=== PATIENT | female | born 1985 | race Caucasian/White ===

== ENCOUNTER → 2016-10-26 | Outpatient (REF) | payer BC ==
[~2016-10-26] MED LIST: /DULO30CA; CETI10TA OR; CYMB60CA3 PO; CYMBALTA; IMIT50TA PO; METF500T PO; PENTASA; PERCOCET PO; SING10TA31; TRUBCAP PO; VENTAER; VIST25CA; VITA500047 PO; XANA0.5T PO; birth control pill OR; doxipen OR; magnesium OR
== END ==
LOC: M LAB REF 16:51
PROVIDERS: ATTEND Internal Medicine Gastroenterology
DX: R10.30 Lower abdominal pain, unspecified (principal); K92.1 Melena

== ENCOUNTER → 2016-10-27 | Outpatient (REF) | payer BC ==
[2016-10-27 20:04] LABS: MICROSCOPIC INDICATED? MAN NO (NO)
== END ==
LOC: M LAB REF 16:50
PROVIDERS: ATTEND Family Medicine
DX: R30.0 Dysuria (principal)

== ENCOUNTER → 2017-11-22 | Outpatient (REF) | payer BC | LOC: M SFHCLERA 17:11 | DX: R39.9 Unspecified symptoms and signs involving the genitourinary system (principal) | CPT/HCPCS: 87086 ==

== ENCOUNTER → 2017-12-24 | Outpatient (REF) | payer BC | LOC: M SFHCLERA 10:03 | DX: R53.81 Other malaise (principal) ==

== ENCOUNTER 2018-07-19 12:03 | Emergency (ER) | payer OTHER, BC ==
[2018-07-19] MEDS: traMADol 50 MG TAB PO (14:47)
[2018-07-19] MEDS: KETOROLAC 60 MG/2 ML VIAL (J1885) IM (14:47)
== END 2018-07-19 16:21 | disposition home or self-care (01) ==
LOC: M ED 12:03
DX: M54.2 Cervicalgia (principal); M54.6 Pain in thoracic spine; R51 Headache; R20.2 Paresthesia of skin; E11.9 Type 2 diabetes mellitus without complications; I47.2 Ventricular tachycardia; J45.909 Unspecified asthma, uncomplicated; F17.210 Nicotine dependence, cigarettes, uncomplicated; Z79.899 Other long term (current) drug therapy; Z91.030 Bee allergy status; Z88.8 Allergy status to other drugs, medicaments and biological substances
CPT/HCPCS: J1885

== ENCOUNTER → 2018-08-30 | Outpatient (REF) | payer OTHER ==
[2018-08-30 11:37] LABS: HEMATOCRIT 43.5 % (36.0-47.0); HEMOGLOBIN 14.9 g/dl (12.0-15.5); MEAN CORPUSCULAR HEMOGLOBIN 31.2 pg (27.0-33.0); MEAN CORPUSCULAR HGB CONC 34.3 g/dl (32.0-36.5); MEAN CORPUSCULAR VOLUME 91.2 fl (80.0-96.0); PLATELET COUNT, AUTOMATED 337 10^3/uL (150-450); RED BLOOD COUNT 4.77 10^6/uL (4.00-5.40); RED CELL DISTRIBUTION WIDTH 12.1 % (11.5-14.5); WHITE BLOOD COUNT 9.2 10^3/uL (4.0-10.0)
[2018-08-30 11:58] LABS: ALBUMIN 4.1 GM/DL (3.2-5.2); ALBUMIN/GLOBULIN RATIO 1.14 (1.00-1.93); ALKALINE PHOSPHATASE 104 U/L (45-117); ALT/SGPT 54 U/L (12-78); ANION GAP 11 MEQ/L (8-16); AST/SGOT 20 U/L (7-37); BILIRUBIN,TOTAL 0.5 MG/DL (0.2-1.0); BLOOD UREA NITROGEN 11 MG/DL (7-18); CARBON DIOXIDE LEVEL 24 MEQ/L (21-32); CHLORIDE LEVEL 95 MEQ/L (98-107); CHOLESTEROL LEVEL 275 MG/DL (<200); CHOLESTEROL RISK RATIO 8.593 (<5); CREATININE FOR GFR 0.92 MG/DL (0.55-1.30); GLOMERULAR FILTRATION RATE > 60.0 (>60); GLUCOSE, FASTING 482 MG/DL (70-100); HDL CHOLESTEROL 32 MG/DL (>40); MAGNESIUM LEVEL 1.8 MG/DL (1.8-2.4); NON-HDL-C 243 MG/DL; POTASSIUM SERUM 4.7 MEQ/L (3.5-5.1); SODIUM LEVEL 130 MEQ/L (136-145); TOTAL 25(OH) VITAMIN D 14.9 NG/ML (30.0-100.0); TOTAL PROTEIN 7.7 GM/DL (6.4-8.2); TRIGLYCERIDES LEVEL 500 MG/DL (<150)
[2018-08-30 12:37] LABS: CREATININE, URINE 16.6 MG/DL; MALB URINE SIEMENS 17.6 MG/L
[2018-08-30 12:39] LABS: ESTIMATED AVERAGE GLUCOSE 289 MG/DL (60-110); HEMOGLOBIN A1c 11.7 %
== END ==
LOC: M SFHCCLAY 08:13
DX: E11.9 Type 2 diabetes mellitus without complications (principal); K21.9 Gastro-esophageal reflux disease without esophagitis; E78.5 Hyperlipidemia, unspecified; F32.9 Major depressive disorder, single episode, unspecified

== ENCOUNTER 2018-09-20 08:59 | Emergency (ER) | payer OTHER ==
[~2018-09-20] VITALS: Ht 157.5 cm; Wt 89.1 kg
[~2018-09-20 08:59] MED LIST changes: +DICL75TA PO; +LEXA1TAB2 PO; +TRAM50TA2 PO
[2018-09-20] MEDS ORDERED: GI COCKTAIL 50ML BTL(HYOSCYAMINE/MAALOX/LIDOCAINE VISCOUS)(1:3:1) PO ONE (09:15)
[2018-09-20] MEDS ORDERED: ONDA4TAB5 (09:18)
[2018-09-20] MEDS ORDERED: META1TAB22 (09:18)
[2018-09-20] MEDS ORDERED: LISI-542 (09:18)
[2018-09-20] MEDS ORDERED: PRAZ1CAP (09:18)
[2018-09-20] MEDS ORDERED: GABA-843 (09:18)
[2018-09-20] MEDS ORDERED: BUSP15TA47 (09:18)
[2018-09-20] MEDS ORDERED: MELO7.5T7 (09:18)
[2018-09-20] MEDS ORDERED: LANTINJ4 (09:18)
[2018-09-20] MEDS ORDERED: ARIP1TAB4 (09:18)
[2018-09-20] MEDS ORDERED: OSEL75CA2 (09:18)
[2018-09-20] MEDS ORDERED: OMEP40CA2 PO (09:18)
[2018-09-20 09:38] LABS: BASO # 0.1 10^3/uL (0.0-0.2); BASO % 0.8 % (0.0-1.0); EOS # 0.2 10^3/uL (0.0-0.50); EOS % 1.7 % (0.0-3.0); HEMATOCRIT 43.3 % (36.0-47.0); LYMPH # 2.7 10^3/uL (1.5-4.5); LYMPH % 30.6 % (24.0-44.0); MEAN CORPUSCULAR HEMOGLOBIN 31.6 pg (27.0-33.0); MEAN CORPUSCULAR HGB CONC 34.6 g/dl (32.0-36.5); MEAN CORPUSCULAR VOLUME 91.2 fl (80.0-96.0); MONO # 0.6 10^3/uL (0.0-0.8); MONO % 6.5 % (0.0-5.0); NEUTROPHILS # 5.2 10^3/uL (1.8-7.7); NEUTROPHILS % 60.1 % (36.0-66.0); PLATELET COUNT, AUTOMATED 287 10^3/uL (150-450); RED BLOOD COUNT 4.75 10^6/uL (4.00-5.40); WHITE BLOOD COUNT 8.7 10^3/uL (4.0-10.0)
[2018-09-20 10:13] LABS: ALBUMIN 3.7 GM/DL (3.2-5.2); ALT/SGPT 48 U/L (12-78); BILIRUBIN,DIRECT 0.1 MG/DL (0.0-0.2); BILIRUBIN,TOTAL 0.5 MG/DL (0.2-1.0); BLOOD UREA NITROGEN 14 MG/DL (7-18); CALCIUM LEVEL 9.1 MG/DL (8.5-10.1); CARBON DIOXIDE LEVEL 23 MEQ/L (21-32); CHLORIDE LEVEL 101 MEQ/L (98-107); CK-MB VALUE MASS < 1.0 NG/ML (<3.6); CPK CREATINE PHOSPHOKINASE 45 U/L (26-192); CREATININE FOR GFR 0.65 MG/DL (0.55-1.30); GLOMERULAR FILTRATION RATE > 60.0 (>60); GLUCOSE, FASTING 289 MG/DL (70-100); LIPASE 116 U/L (73-393); MB/CK RELATIVE INDEX 2.22 (< OR =4); POTASSIUM SERUM 4.4 MEQ/L (3.5-5.1); SODIUM LEVEL 135 MEQ/L (136-145); TOTAL PROTEIN 7.2 GM/DL (6.4-8.2); TROPONIN I < 0.02 NG/ML (< 0.10)
[2018-09-20] MEDS ORDERED: SUCRALFATE SUSP 1GM/10ML UD PO ONE (10:15)
[2018-09-20] MEDS ORDERED: KETOROLAC 30 MG/ML VIAL (J1885) IV ONE (10:45)
[2018-09-20] MEDS ORDERED: NS 1,000 ML IV ONE (11:00)
[2018-09-20 15:45] LABS: CK-MB VALUE MASS < 1.0 NG/ML (<3.6); CPK CREATINE PHOSPHOKINASE 34 U/L (26-192); MB/CK RELATIVE INDEX 2.94 (< OR =4); TROPONIN I < 0.02 NG/ML (< 0.10)
[2018-09-20] MEDS ORDERED: SUCR1SS PO (15:53)
[2018-09-20 16:03] VITALS: BP 117/59
--- NOTE | 2018-09-21 16:42 | ECGEPIP ---
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
--- NOTE | 2018-09-21 16:47 | ECGEPIP ---
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
== END 2018-09-20 16:05 | disposition home or self-care (01) ==
LOC: M ED 08:59
DX: R07.9 Chest pain, unspecified (principal); E11.9 Type 2 diabetes mellitus without complications; J45.909 Unspecified asthma, uncomplicated; Z79.4 Long term (current) use of insulin; F17.200 Nicotine dependence, unspecified, uncomplicated

== ENCOUNTER → 2019-01-17 | Outpatient (REF) | payer MEDICAID ==
[~2019-01-17] MED LIST changes: -/DULO30CA; +ARIP1TAB4; +BUSP15TA47; +CYMB1CAP5; +GABA-843; +LANTINJ4; +LISI-542; +MELO7.5T7; +META1TAB22; +OMEP40CA2 PO; +ONDA4TAB5; +OSEL75CA2; +OXYC1TAB23 PO; -PERCOCET PO; +PRAZ1CAP; +SUCR1SS PO
[2019-01-17 11:54] LABS: ALBUMIN 3.8 GM/DL (3.2-5.2); BILIRUBIN,DIRECT 0.1 MG/DL (0.0-0.2); BILIRUBIN,TOTAL 0.7 MG/DL (0.2-1.0); CHOLESTEROL RISK RATIO 7.818 (<5); TOTAL 25(OH) VITAMIN D 28.1 NG/ML (30.0-100.0); TOTAL PROTEIN 7.4 GM/DL (6.4-8.2)
[2019-01-17 12:18] LABS: MAU/CREAT RATIO 69.4 MCG/MG (0.0-30.0)
[2019-01-17 12:35] LABS: HEMOGLOBIN A1c 11.5 %
== END ==
LOC: M SFHCCLAY 07:27
PROVIDERS: ATTEND Nurse Practitioner Family
DX: E11.9 Type 2 diabetes mellitus without complications (principal); E78.5 Hyperlipidemia, unspecified; E55.9 Vitamin D deficiency, unspecified

== ENCOUNTER → 2019-02-08 | Outpatient (REF) | payer MEDICAID, OTHER | LOC: M SFHCCLAY 16:09 | PROVIDERS: ATTEND Family Medicine | DX: K52.9 Noninfective gastroenteritis and colitis, unspecified (principal); E11.9 Type 2 diabetes mellitus without complications; Z53.9 Procedure and treatment not carried out, unspecified reason ==

== ENCOUNTER → 2019-02-09 | Outpatient (REF) | payer OTHER ==
[2019-02-09 16:52] LABS: REDUCING SUBSTANCE NEGATIVE (NEGATIVE)
[2019-02-09 16:53] LABS: HEMATOCRIT 36.3 % (36.0-47.0); HEMOGLOBIN 12.3 g/dl (12.0-15.5); MEAN CORPUSCULAR HEMOGLOBIN 31.6 pg (27.0-33.0); MEAN CORPUSCULAR HGB CONC 33.9 g/dl (32.0-36.5); MEAN CORPUSCULAR VOLUME 93.3 fl (80.0-96.0); PLATELET COUNT, AUTOMATED 288 10^3/uL (150-450); RED BLOOD COUNT 3.89 10^6/uL (4.00-5.40)
[2019-02-09 17:09] LABS: BLOOD UREA NITROGEN 15 MG/DL (7-18); CALCIUM LEVEL 9.2 MG/DL (8.5-10.1); CARBON DIOXIDE LEVEL 24 MEQ/L (21-32); CHLORIDE LEVEL 102 MEQ/L (98-107); CREATININE FOR GFR 0.77 MG/DL (0.55-1.30); GLOMERULAR FILTRATION RATE > 60.0 (>60); GLUCOSE, FASTING 303 MG/DL (70-100); POTASSIUM SERUM 4.1 MEQ/L (3.5-5.1); SODIUM LEVEL 136 MEQ/L (136-145)
[2019-02-14 14:13] LABS: C-PEPTIDE 3.3 ng/mL (1.1-4.4); ISLET CELL ANTIBODIES Negative (Neg:<1:1); TISSUE TRANSGLUTAMINASE IgA <2 U/mL (0-3); TISSUE TRANSGLUTAMINASE IgG <2 U/mL (0-5); UNITSIGA FOR GLIADIN IGA 4 units (0-19); UNITSIGG FOR GLIADIN IGG 2 units (0-19)
== END ==
LOC: M SFHCCLAY 13:30
PROVIDERS: ATTEND Family Medicine
DX: K52.9 Noninfective gastroenteritis and colitis, unspecified (principal); E11.9 Type 2 diabetes mellitus without complications

== ENCOUNTER → 2019-09-05 | Outpatient (REF) | payer OTHER ==
[~2019-09-05] MED LIST changes: -OMEP40CA2 PO; +OMEP40CA97 PO
[2019-09-05 12:21] LABS: ALBUMIN 3.4 GM/DL (3.2-5.2); ALT/SGPT 31 U/L (12-78); BILIRUBIN,DIRECT < 0.1 MG/DL (0.0-0.2); BILIRUBIN,TOTAL 0.6 MG/DL (0.2-1.0); CHOLESTEROL LEVEL 220 MG/DL (<200); CHOLESTEROL RISK RATIO 9.565 (<5); HDL CHOLESTEROL 23 MG/DL (>40); NON-HDL-C 197 MG/DL; TOTAL PROTEIN 6.7 GM/DL (6.4-8.2); TRIGLYCERIDES LEVEL 979 MG/DL (<150)
[2019-09-05 12:41] LABS: HEMOGLOBIN A1c 10.9 %
[2019-09-05 13:46] LABS: TOTAL 25(OH) VITAMIN D 28.2 NG/ML (30.0-100.0)
== END ==
LOC: M SFHCCLAY 07:04
PROVIDERS: ATTEND Nurse Practitioner Family
DX: E11.65 Type 2 diabetes mellitus with hyperglycemia (principal); E78.5 Hyperlipidemia, unspecified; E55.9 Vitamin D deficiency, unspecified

== ENCOUNTER → 2019-11-07 | Outpatient (REF) | payer OTHER ==
[~2019-11-07] MED LIST changes: +ONDA-83; -ONDA4TAB5
[2019-11-07 11:32] LABS: APPEARANCE, URINE HAZY (CLEAR); BACTERIA, URINE AUTO NEGATIVE (NEGATIVE); BILIRUBIN, URINE AUTO NEGATIVE (NEGATIVE); BLOOD, URINE BLOOD NEGATIVE (NEGATIVE); COLOR, URINE YELLOW (YELLOW); GLUCOSE, URINE (UA) AUTO 3+ mg/dL (NEGATIVE); KETONE, URINE AUTO NEGATIVE (NEGATIVE); LEUKOCYTE ESTERASE, URINE AUTO NEGATIVE (NEGATIVE); NITRITE, URINE AUTO NEGATIVE (NEGATIVE); PROTEIN, URINE AUTO NEGATIVE (NEGATIVE); RBC, URINE AUTO 0 /HPF (0-3); SPECIFIC GRAVITY URINE AUTO 1.041 (1.002-1.035); SQUAMOUS EPITHELIAL CELL UR AU 1 /HPF (0-6); UROBILINOGEN, URINE AUTO 0.2 mg/dL (0.0-2.0); WBC, URINE AUTO 1 /HPF (0-3)
[2019-11-07 11:43] LABS: BASO # 0.1 10^3/uL (0.0-0.2); EOS # 0.2 10^3/uL (0.0-0.5); EOS % 2.5 % (0.0-3.0); HEMATOCRIT 40.9 % (36.0-47.0); HEMOGLOBIN 13.7 g/dl (12.0-15.5); LYMPH # 2.5 10^3/uL (1.5-5.0); LYMPH % 30.6 % (24.0-44.0); MEAN CORPUSCULAR HEMOGLOBIN 31.8 pg (27.0-33.0); MEAN CORPUSCULAR HGB CONC 33.5 g/dl (32.0-36.5); MEAN CORPUSCULAR VOLUME 94.9 fl (80.0-96.0); MONO # 0.5 10^3/uL (0.0-0.8); MONO % 6.8 % (0.0-5.0); NEUTROPHILS # 4.7 10^3/uL (1.5-8.5); NEUTROPHILS % 58.6 % (36.0-66.0); PLATELET COUNT, AUTOMATED 318 10^3/uL (150-450); RED BLOOD COUNT 4.31 10^6/uL (4.00-5.40)
[2019-11-07 11:50] LABS: ALBUMIN 3.9 GM/DL (3.2-5.2); ALT/SGPT 55 U/L (12-78); BILIRUBIN,TOTAL 0.7 MG/DL (0.2-1.0); BLOOD UREA NITROGEN 14 MG/DL (7-18); CALCIUM LEVEL 9.3 MG/DL (8.5-10.1); CARBON DIOXIDE LEVEL 26 MEQ/L (21-32); CHLORIDE LEVEL 109 MEQ/L (98-107); CREATININE FOR GFR 0.81 MG/DL (0.55-1.30); GLOMERULAR FILTRATION RATE > 60.0 (>60); GLUCOSE, FASTING 214 MG/DL (70-100); POTASSIUM SERUM 4.2 MEQ/L (3.5-5.1); SODIUM LEVEL 140 MEQ/L (136-145)
[2019-11-07 12:06] LABS: HEMOGLOBIN A1c 10.4 %
== END ==
LOC: M SFHCCLAY 07:06
PROVIDERS: ATTEND Family Medicine
DX: K50.90 Crohn's disease, unspecified, without complications (principal); E11.8 Type 2 diabetes mellitus with unspecified complications

== ENCOUNTER → 2019-11-20 | Outpatient (REF) | payer OTHER | LOC: M LABDRAWC 17:14 | PROVIDERS: ATTEND Internal Medicine Gastroenterology | DX: K21.9 Gastro-esophageal reflux disease without esophagitis (principal); K50.90 Crohn's disease, unspecified, without complications; R10.9 Unspecified abdominal pain ==

== ENCOUNTER → 2019-12-05 | Outpatient (REF) | payer OTHER | LOC: M SFHCCLAY 16:13 | PROVIDERS: ATTEND Nurse Practitioner Family | DX: J02.9 Acute pharyngitis, unspecified (principal) ==

== ENCOUNTER → 2020-01-15 | Outpatient (REF) | payer OTHER ==
[2020-01-15 17:48] LABS: CHOLESTEROL LEVEL 314 MG/DL (<200); CHOLESTEROL RISK RATIO 10.827 (<5); HDL CHOLESTEROL 29 MG/DL (>40); NON-HDL-C 285 MG/DL; TOTAL 25(OH) VITAMIN D 18.8 NG/ML (30.0-100.0); TRIGLYCERIDES LEVEL 1106 MG/DL (<150)
[2020-01-15 18:03] LABS: HEMOGLOBIN A1c 9.8 %
[2020-01-15 18:08] LABS: CREATININE, URINE 83.7 MG/DL; MALB URINE SIEMENS 5.6 MG/L; MAU/CREAT RATIO 6.6 MCG/MG (0.0-30.0)
== END ==
LOC: M SFHCCLAY 11:55
PROVIDERS: ATTEND Nurse Practitioner Family
DX: E11.8 Type 2 diabetes mellitus with unspecified complications (principal); E78.5 Hyperlipidemia, unspecified; E55.9 Vitamin D deficiency, unspecified

== ENCOUNTER 2020-02-05 20:44 | Emergency (ER) | payer OTHER ==
[~2020-02-05] VITALS: Ht 157.5 cm; Wt 86.3 kg
[2020-02-05] MEDS ORDERED: KETOROLAC 30 MG/ML 1ML VIAL IV ONE (21:15)
[2020-02-05] MEDS ORDERED: TRAZ1TAB14 PO (21:42)
[2020-02-05] MEDS ORDERED: ALBU8.5H INH (21:42)
[2020-02-05] MEDS ORDERED: HYDR-3713 PO (21:42)
[2020-02-05] MEDS ORDERED: TOPA1TAB PO (21:42)
[2020-02-05] MEDS ORDERED: LITH300C PO (21:42)
[2020-02-05] MEDS ORDERED: PRED10TA2 PO (21:42)
[2020-02-05] MEDS ORDERED: BASA100I SQ (21:42)
[2020-02-05 21:59] LABS: BASO # 0.1 10^3/uL (0.0-0.2); BASO % 0.7 % (0.0-1.0); EOS % 0.3 % (0.0-3.0); HEMOGLOBIN 14.5 g/dl (12.0-15.5); LYMPH # 3.4 10^3/uL (1.5-5.0); LYMPH % 25.2 % (24.0-44.0); MEAN CORPUSCULAR HEMOGLOBIN 31.1 pg (27.0-33.0); MEAN CORPUSCULAR HGB CONC 33.7 g/dl (32.0-36.5); MEAN CORPUSCULAR VOLUME 92.3 fl (80.0-96.0); MONO # 0.8 10^3/uL (0.0-0.8); MONO % 5.6 % (0.0-5.0); NEUTROPHILS # 9.1 10^3/uL (1.5-8.5); NEUTROPHILS % 67.6 % (36.0-66.0); PLATELET COUNT, AUTOMATED 300 10^3/uL (150-450); RED BLOOD COUNT 4.66 10^6/uL (4.00-5.40); WHITE BLOOD COUNT 13.5 10^3/uL (4.0-10.0)
[2020-02-05 22:10] LABS: BLOOD UREA NITROGEN 13 MG/DL (7-18); C REACTIVE PROTEIN QUANTITATIV 1.25 MG/DL (0.00-0.30); CALCIUM LEVEL 8.6 MG/DL (8.5-10.1); CARBON DIOXIDE LEVEL 25 MEQ/L (21-32); CHLORIDE LEVEL 103 MEQ/L (98-107); CREATININE FOR GFR 0.74 MG/DL (0.55-1.30); GLOMERULAR FILTRATION RATE > 60.0 (>60); GLUCOSE, FASTING 302 MG/DL (70-100); POTASSIUM SERUM 4.1 MEQ/L (3.5-5.1); SODIUM LEVEL 135 MEQ/L (136-145)
[2020-02-05 22:35] LABS: ERYTHROCYTE SEDIMENTATION RATE 14 mm/hr (0-20)
[2020-02-05 23:09] VITALS: BP 127/78
[2020-02-08 00:08] LABS: Lyme Disease IgG/IgM Antibodie <0.91 ISR (0.00-0.90); Lyme Disease IgM Ab Quantitati <0.80 index (0.00-0.79)
== END 2020-02-05 23:21 | disposition home or self-care (01) ==
LOC: M ED 20:44
DX: M25.50 Pain in unspecified joint (principal); E11.9 Type 2 diabetes mellitus without complications; I47.1 Supraventricular tachycardia; M54.81 Occipital neuralgia; K50.919 Crohn's disease, unspecified, with unspecified complications; F17.200 Nicotine dependence, unspecified, uncomplicated; Z98.890 Other specified postprocedural states; Z79.84 Long term (current) use of oral hypoglycemic drugs; Z79.899 Other long term (current) drug therapy; Z88.2 Allergy status to sulfonamides; Z88.0 Allergy status to penicillin; Z91.030 Bee allergy status
CPT/HCPCS: 36415; 80048; 81001; 84443; 85025; 85652; 86140; 86617; 96374; 99284; J1885

== ENCOUNTER → 2020-02-08 | Outpatient (REF) | payer OTHER ==
[~2020-02-08] MED LIST changes: +ALBU8.5H INH; +BASA100I SQ; +HYDR-3713 PO; +LITH300C PO; +PRED10TA2 PO; +TOPA1TAB PO; +TRAZ1TAB14 PO
[2020-02-08 12:35] LABS: ALBUMIN 4.1 GM/DL (3.2-5.2); ALT/SGPT 35 U/L (12-78); BILIRUBIN,DIRECT 0.2 MG/DL (0.0-0.2); CHOLESTEROL LEVEL 264 MG/DL (<200); HDL CHOLESTEROL 33 MG/DL (>40); LDL CHOLESTEROL 158 MG/DL (<100); NON-HDL-C 231 MG/DL; RHEUMATOID FACTOR QUANT < 10.0 IU/ML (<15.0); TOTAL PROTEIN 7.2 GM/DL (6.4-8.2); TRIGLYCERIDES LEVEL 363 MG/DL (<150)
[2020-02-08 12:57] LABS: HEMOGLOBIN A1c 9.8 %
[2020-02-10 00:07] LABS: ANA (HEP2) Negative (.)
== END ==
LOC: M SFHCCLAY 09:17
PROVIDERS: ATTEND Nurse Practitioner Family
DX: E11.8 Type 2 diabetes mellitus with unspecified complications (principal); E78.5 Hyperlipidemia, unspecified; M25.50 Pain in unspecified joint

== ENCOUNTER → 2020-04-10 | Outpatient (CLI) | payer OTHER ==
[2020-04-10 12:09] LABS: BASO # 0.1 10^3/uL (0.0-0.2); BASO % 0.5 % (0.0-1.0); EOS # 0.1 10^3/uL (0.0-0.5); EOS % 0.5 % (0.0-3.0); HEMATOCRIT 43.8 % (36.0-47.0); HEMOGLOBIN 14.5 g/dl (12.0-15.5); LYMPH # 1.7 10^3/uL (1.5-5.0); LYMPH % 13.8 % (24.0-44.0); MEAN CORPUSCULAR HEMOGLOBIN 31.5 pg (27.0-33.0); MEAN CORPUSCULAR HGB CONC 33.1 g/dl (32.0-36.5); MEAN CORPUSCULAR VOLUME 95.2 fl (80.0-96.0); MONO % 8.3 % (0.0-5.0); NEUTROPHILS # 9.3 10^3/uL (1.5-8.5); NEUTROPHILS % 76.3 % (36.0-66.0); PLATELET COUNT, AUTOMATED 314 10^3/uL (150-450); WHITE BLOOD COUNT 12.2 10^3/uL (4.0-10.0)
[2020-04-10 12:41] LABS: ALBUMIN 3.8 GM/DL (3.2-5.2); ALT/SGPT 27 U/L (12-78); BILIRUBIN,TOTAL 0.9 MG/DL (0.2-1.0); BLOOD UREA NITROGEN 10 MG/DL (7-18); CALCIUM LEVEL 9.5 MG/DL (8.5-10.1); CARBON DIOXIDE LEVEL 18 MEQ/L (21-32); CHLORIDE LEVEL 101 MEQ/L (98-107); CREATININE FOR GFR 0.86 MG/DL (0.55-1.30); GLOMERULAR FILTRATION RATE > 60.0 (>60); GLUCOSE, FASTING 249 MG/DL (70-100); LIPASE 127 U/L (73-393); POTASSIUM SERUM 4.6 MEQ/L (3.5-5.1); SODIUM LEVEL 134 MEQ/L (136-145); TOTAL PROTEIN 7.5 GM/DL (6.4-8.2)
== END ==
LOC: M WUC 08:53
PROVIDERS: ATTEND Physician Assistant
DX: R10.9 Unspecified abdominal pain (principal)

== ENCOUNTER → 2020-05-07 | Outpatient (REF) | payer OTHER ==
[2020-06-25 10:49] LABS: HEMATOCRIT 44.5 % (36.0-47.0); HEMOGLOBIN 14.5 g/dl (12.0-15.5); MEAN CORPUSCULAR HEMOGLOBIN 31.9 pg (27.0-33.0); MEAN CORPUSCULAR HGB CONC 32.6 g/dl (32.0-36.5); MEAN CORPUSCULAR VOLUME 97.8 fl (80.0-96.0); PLATELET COUNT, AUTOMATED 337 10^3/uL (150-450); RED BLOOD COUNT 4.55 10^6/uL (4.00-5.40); WHITE BLOOD COUNT 10.1 10^3/uL (4.0-10.0)
[2020-07-28 08:38] LABS: ALBUMIN 3.9 GM/DL (3.2-5.2); ALT/SGPT 27 U/L (12-78); BILIRUBIN,TOTAL 0.5 MG/DL (0.2-1.0); BLOOD UREA NITROGEN 13 MG/DL (7-18); CALCIUM LEVEL 9.4 MG/DL (8.5-10.1); CARBON DIOXIDE LEVEL 27 MEQ/L (21-32); CHLORIDE LEVEL 106 MEQ/L (98-107); CHOLESTEROL LEVEL 222 MG/DL (<200); CHOLESTEROL RISK RATIO 5.162 (<5); CREATININE FOR GFR 0.75 MG/DL (0.55-1.30); GLOMERULAR FILTRATION RATE > 60.0 (>60); GLUCOSE, FASTING 108 MG/DL (70-100); HDL CHOLESTEROL 43 MG/DL (>40); HEMOGLOBIN A1c 8.7 %; LDL CHOLESTEROL 159 MG/DL (<100); MALB URINE SIEMENS < 5.0 MG/L; NON-HDL-C 179 MG/DL; POTASSIUM SERUM 4.2 MEQ/L (3.5-5.1); SODIUM LEVEL 137 MEQ/L (136-145); TOTAL 25(OH) VITAMIN D 48.2 NG/ML (30.0-100.0); TOTAL PROTEIN 6.8 GM/DL (6.4-8.2); TRIGLYCERIDES LEVEL 101 MG/DL (<150)
== END ==
LOC: M SFHCCLAY 12:49
PROVIDERS: ATTEND Nurse Practitioner Family
DX: E11.9 Type 2 diabetes mellitus without complications (principal); E55.9 Vitamin D deficiency, unspecified

== ENCOUNTER → 2021-02-07 | Outpatient (CLI) | payer BC, OTHER ==
[~2021-02-07] MED LIST changes: +GABA-282; -GABA-843; -LISI-542; +LISI-898
[2021-02-07 18:11] LABS: BASO # 0.1 10^3/uL (0.0-0.2); EOS # 0.2 10^3/uL (0.0-0.5); EOS % 1.9 % (0.0-3.0); HEMATOCRIT 41.6 % (36.0-47.0); HEMOGLOBIN 14.1 g/dl (12.0-15.5); LYMPH # 3.4 10^3/uL (1.5-5.0); LYMPH % 34.2 % (24.0-44.0); MEAN CORPUSCULAR HEMOGLOBIN 31.8 pg (27.0-33.0); MEAN CORPUSCULAR HGB CONC 33.9 g/dl (32.0-36.5); MEAN CORPUSCULAR VOLUME 93.7 fl (80.0-96.0); MONO # 0.6 10^3/uL (0.0-0.8); MONO % 6.2 % (2.0-8.0); NEUTROPHILS # 5.6 10^3/uL (1.5-8.5); NEUTROPHILS % 56.1 % (36.0-66.0); PLATELET COUNT, AUTOMATED 332 10^3/uL (150-450); RED BLOOD COUNT 4.44 10^6/uL (4.00-5.40)
[2021-02-07 18:44] LABS: ALBUMIN 3.7 GM/DL (3.2-5.2); ALT/SGPT 42 U/L (12-78); BILIRUBIN,TOTAL 0.4 MG/DL (0.2-1.0); BLOOD UREA NITROGEN 16 MG/DL (7-18); CALCIUM LEVEL 8.5 MG/DL (8.5-10.1); CARBON DIOXIDE LEVEL 25 MEQ/L (21-32); CHLORIDE LEVEL 103 MEQ/L (98-107); CREATININE FOR GFR 0.65 MG/DL (0.55-1.30); FREE T4 0.74 NG/DL (0.76-1.46); GLOMERULAR FILTRATION RATE > 60.0 (>60); GLUCOSE, FASTING 236 MG/DL (70-100); POTASSIUM SERUM 3.8 MEQ/L (3.5-5.1); SODIUM LEVEL 136 MEQ/L (136-145)
== END ==
LOC: M LAB 17:14
PROVIDERS: ATTEND Physician Assistant
DX: R53.83 Other fatigue (principal)

== ENCOUNTER → 2021-02-19 | Outpatient (REF) | payer BC, MEDICAID ==
[~2021-02-19] MED LIST changes: +OMEP40CA4 PO; -OMEP40CA97 PO
[2021-02-19 11:45] LABS: HEMATOCRIT 44.6 % (36.0-47.0); HEMOGLOBIN 14.6 g/dl (12.0-15.5); MEAN CORPUSCULAR HEMOGLOBIN 31.3 pg (27.0-33.0); MEAN CORPUSCULAR HGB CONC 32.7 g/dl (32.0-36.5); MEAN CORPUSCULAR VOLUME 95.5 fl (80.0-96.0); PLATELET COUNT, AUTOMATED 293 10^3/uL (150-450); RED BLOOD COUNT 4.67 10^6/uL (4.00-5.40); WHITE BLOOD COUNT 9.5 10^3/uL (4.0-10.0)
[2021-02-19 12:37] LABS: MALB URINE SIEMENS < 5.0 MG/L; MAU/CREAT RATIO 11.9 MCG/MG (0.0-30.0)
[2021-02-19 13:11] LABS: HEMOGLOBIN A1c 9.4 %
[2021-02-19 13:26] LABS: CHOLESTEROL LEVEL 312 MG/DL (<200); HDL CHOLESTEROL 24 MG/DL (>40); NON-HDL-C 288 MG/DL; TOTAL 25(OH) VITAMIN D 15.2 NG/ML (30.0-100.0); TRIGLYCERIDES LEVEL 1614 MG/DL (<150)
== END ==
LOC: M SFHCCLAY 07:02
PROVIDERS: ATTEND Nurse Practitioner Family
DX: E11.8 Type 2 diabetes mellitus with unspecified complications (principal); E78.5 Hyperlipidemia, unspecified; E03.9 Hypothyroidism, unspecified; E55.9 Vitamin D deficiency, unspecified

== ENCOUNTER → 2021-08-05 | Outpatient (REF) | payer BC ==
[~2021-08-05] MED LIST changes: +CYMB60CA4 PO; +NITR100C2
== END ==
LOC: M SFHCCLAY 11:25
PROVIDERS: ATTEND Physician Assistant
DX: R30.0 Dysuria (principal); N89.8 Other specified noninflammatory disorders of vagina

== ENCOUNTER 2021-08-06 07:09 | Emergency (ER) | payer BC ==
[~2021-08-06] VITALS: Ht 152.4 cm; Wt 78.2 kg
[~2021-08-06 07:09] MED LIST changes: -CYMB60CA4 PO; -NITR100C2
[2021-08-06] MEDS ORDERED: CYMB60CA4 PO (07:14)
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
--- OUTSIDE RECORDS SUMMARY | 2021-08-06 07:14 | CCD | Continuity of Care Document ---
Author Author Alexandria BRANCH Organization Unknown Address [address] [place] [address] [place] [address] Phone [phone] Care Team Providers Care Water Tester Name Role Phone Ivone Resendiz AUTM [phone] John Co Publi AUTM [phone] Problems Description No Information Available Social History Type Date Description Comments Sex Unknown ETOH Use Denies alcohol use Tobacco Use Start: Unknown Light tobacco smoker (10 or fewe r cigarettes/day) Smoking Status Reviewed: 07/27/21 Light tobacco smoker (10 or fewer cigarettes/day) Allergies and adverse reactions Active Allergies Criticality Reaction | Severity Comments Date Penicillins Unable to assess criticality 04/10/2020 Macrolides And Ketolides Unable to assess criticality 04/10/2020 Shellfish-Derived Products Unable to assess criticality 06/25/2020 Prednisone Unable to assess criticality 07/27/2021 Medications Active Medications SIG Qnty Indications Ordering Provide r Date Zyrtec Allergy 10mg Capsules 1 tab by mouth every day as needed for allergy symptoms U nknown [place] Carbonate 300mg Capsules 150mg once a day added Unknown Prazosin HCL 2mg Capsules Unknown Trazodone HCL 150mg Tablets Unknown Steglatro 15mg Tablets Unknown Omeprazole 40mg Capsules DR 1 by mouth every day Unknown Levothyroxine Sodium 25mcg Tablets Unknown Basaglar Kwikpen 100 Unit/ML Solution Pen-Inject 50 units once a day Unknown 00 Abilify 5mg Tablets Unknown Duloxetine HCL 60mg Caps DR Part Unknown Topiramate 50mg Tablets Unknown Baclofen 10mg Tablets Unknown Immunizations Description No Information Available Vital Signs Date Vital Result Comment 07/27/2021 12:02pm BP Systolic 123 mmHg BP Diastolic 86 mmHg Heart Rate 104 /min Respiratory Rate 16 /min O2 % BldC Oximetry 98 % Body Temperature 97.7 F Weight 180.00 lb Height 60 inches 5'0" BMI (Body Mass Index) 35.1 kg/m2 Pain Level 4 02/06/2021 6:44pm BP Systolic 122 mmHg BP Diastolic 85 mmHg Heart Rate 99 /min Respiratory Rate 16 /min O2 % BldC Oximetry 97 % Body Temperature 98.4 F Weight 180.00 lb Height 62 inches 5'2" BMI (Body Mass Index) 32.9 kg/m2 Pain Level 4 Results Test Acquired Date Facility Test Result H/L Range Note CBC With Differential 02/07/2021 [place] [id number] [phone] White Blood Count 10.0 10 Normal 4.0-10.0 Red Blood Count 4.44 10 Normal 4.00-5.40 Hemoglobin 14.1 g/dL Normal 12.0-15.5 Hematocrit 41.6 % Normal 36.0-47.0 Mean Corpuscular Volume 93.7 fl Normal 80.0-96.0 Mean Corpuscular Hemoglobin 31.8 pg Normal 27.0-33.0 Mean Corpuscular HGB Conc 33.9 g/dL Normal 32.0-36.5 Red Cell Distribution Width 12.2 % Normal 11.5-14.5 Platelet Count, Automated 332 10 Normal 150-450 Neutrophils % 56.1 % Normal 36.0-66.0 Lymph % 34.2 % Normal 24.0-44.0 [place]undy % 6.2 % Normal 2.0-8.0 Eos % 1.9 % Normal 0.0-3.0 Baso % 1.0 % Normal 0.0-1.0 Immature Granulocyte % 0.6 % Normal 0-3.0 Nucleated Red Blood Cell % 0.0 % Normal 0-0 Neutrophils # 5.6 10 Normal 1.5-8.5 Lymph # 3.4 10 Normal 1.5-5.0 [place] # 0.6 10 Normal 0.0-0.8 Eos # 0.2 10 Normal 0.0-0.5 Baso # 0.1 10 Normal 0.0-0.2 Comprehensive Metabolic Profil 02/07/2021 [facility] [address] [place] [address] [phone] Glucose, Fasting 236 mg/dL High 70-100 Blood Urea Nitrogen 16 mg/dL Normal 7-18 Creatinine For GFR 0.65 mg/dL Normal 0.55-1.30 Glomerular Filtration Rate > 60.0 Normal >60 1 Sodium Level 136 mEq/L Normal 136-145 Potassium Serum 3.8 mEq/L Normal 3.5-5.1 Chloride Level 103 mEq/L Normal 98-107 Carbon Dioxide Level 25 mEq/L Normal 21-32 Anion Gap 8 mEq/L Normal 8-16 Calcium Level 8.5 mg/dL Normal 8.5-10.1 Ast/Sgot 13 U/L Normal 7-37 Alt/SGPT 42 U/L Normal 12-78 Alkaline Phosphatase 110 U/L Normal 45-117 Bilirubin,Total 0.4 mg/dL Normal 0.2-1.0 Total Protein 7.0 GM/DL Normal 6.4-8.2 Albumin 3.7 GM/DL Normal 3.2-5.2 Albumin/Globulin Ratio 1.1 Low 1.2-2.2 FT4&TSH Panel 02/07/2021 [facility] n[facility] [address] [place] [address] [phone] Thyroid Stimulating Hormone 1.560 uIU/ML Normal 0. 358-3.740 Free T4 0.74 ng/dL Low 0.76-1.46 1 Units are mL/min/1.73 m2 Chronic Kidney Disease Staging per NKF: Stage I & II GFR >=60 Normal to Mildly Decreased Stage III GFR 30-59 Moderately Decreased Stage IV GFR 15-29 Severely Decreased Stage V GFR <15 Very Little GFR Left ESRD GFR <15 on SHARE HOLDER Procedures Date Code Description Status 07/27/2021 83339 Office/Outpatient Established Lo w MDM 20-29 Min Completed 02/06/2021 02914 Office/Outpatient Established Mo d MDM 30-39 Min Completed Medical Devices Description No Information Available Encounters Type Date Location Provider Dx Diagnosis Office Visit 07/27/2021 9:40a Main Office Patt Wheat.ADell A0 8.4 Viral intestinal infection, unspecified Z20.828 Contact w and exposure to ot h viral communicable diseases Office Visit 02/06/2021 5:10p Main Office Eduardo Wheat R5 3.83 Other fatigue Assessments Date Code Description Provider 07/27/2021 A08.4 Viral gastroenteritis NOS Patt Celaya.ADell 07/27/2021 Z20.828 Contact with and (pedersen spected) exposure to other viral communicable diseases [facility] P.ADell 02/06/2021 R53.83 Other fatigue [facility] PTg Plan of Treatment No Information Available Functional Status Description No Information Available Mental Status Description No Information Available Referrals Description No Information Available
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
--- OUTSIDE RECORDS SUMMARY | 2021-08-06 07:14 | CCD | Continuity of Care Document ---
Author Author Alexandria BRANCH Organization Unknown Address [address] [place] [address] [place] [address] Phone [phone] Care Team Providers Care Aerospace Assembler Name Role Phone Ivone Resendiz AUTM [phone] John Co Publi AUTM [phone] Problems Description No Information Available Social History [...] as needed for allergy symptoms U nknown [place] Carbonate 300mg Capsules 150mg once a day [...] H/L Range Note CBC With Differential 02/07/2021 [place] [id number] [phone] White Blood Count 10.0 10 Normal 4.0-10.0 [...] 36.0-66.0 Lymph % 34.2 % Normal 24.0-44.0 Alexander % 6.2 % Normal 2.0-8.0 Eos % 1.9 % Normal 0.0-3.0 Baso % 1.0 % Normal 0.0-1.0 Immature Granulocyte % 0.6 % Normal 0-3.0 Nucleated Red Blood Cell % 0.0 % Normal 0-0 Neutrophils # 5.6 10 Normal 1.5-8.5 Lymph # 3.4 10 Normal 1.5-5.0 Alexander # 0.6 10 Normal 0.0-0.8 Eos # 0.2 10 Normal 0.0-0.5 Baso # 0.1 10 Normal 0.0-0.2 Comprehensive Metabolic Profil 02/07/2021 [facility] [address] [place] [address] [phone] Glucose, Fasting 236 mg/dL High 70-100 Blood [...] Ratio 1.1 Low 1.2-2.2 FT4&TSH Panel 02/07/2021 [facility] nter [address] [place] [address] [phone] Thyroid Stimulating Hormone 1.560 uIU/ML Normal 0. 358-3.740 Free T4 0.74 ng/dL Low 0.76-1.46 1 Units are mL/min/1.73 m2 Chronic Kidney Disease Staging per NKF: Stage I & II GFR >=60 Normal to Mildly Decreased Stage III GFR 30-59 Moderately Decreased Stage IV GFR 15-29 Severely Decreased Stage V GFR <15 Very Little GFR Left ESRD GFR <15 on PREFORMING MACHINE OPERATOR Procedures Date Code Description Status 07/27/2021 00520 Office/Outpatient Established Lo w MDM 20-29 Min Completed 02/06/2021 45312 Office/Outpatient Established Mo d MDM 30-39 Min [...]
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
[2021-08-06] MEDS ORDERED: LITH300C PO (07:15)
--- OUTSIDE RECORDS SUMMARY | 2021-08-06 07:15 | CCD ---
Author Author [facility] Organization [facility] Address Unknown Phone Unavailable Support Name Relationship Address Phone [place] [address] Unavailable [facility] Next Of Kin [address] [place] [address] [facility] Next Of Kin [address] [facility] [address] [place] [address] Becky POLK Next Of Kin [address] [place] [address] Unavailable ECKERDWATN Next Of Kin [address] [place] [address] ST Next Of Kin Unknown Unavailable UE Next Of Kin Unknown Unavailable JE SANCHEZ Next Of Kin [address] [place] [address] [facility] Ne xt Of Kin [address] [place] [address] RONAK THEODORE Next Of Kin Unknown Next Of Kin [address] [place] [address] NCOG Next Of Kin [address] [place] [address] GILCO RICKY Next Of Kin [address] [place] [address] UNK Next Of Kin Unknown Unavailable [facility] [place] Next Of Kin [address] [facility] [address] [place] [address] TAY PHILLIPS Next Of Kin [address] [place] [address] [place] [address] Regine POLK Next Of Kin [address] [place] [address] [facility] [address] MARA CAMILOHI Next Of Kin [address] [place] [address] RONAK [place] [address] LEXIS FINCH ECON [address] [place] [address] Unavailable TAY TEMPLETON ECON [address] [place] [address] Unavailable TAY PHILLIPS ECON [address] [place] [address] Unavailable Care Team Providers Care Port Purser Name Role Phone Juany Jacobsen MD Unavailable Unavailable Juany Jacobsen MD Unavailable Unavailable Juany Jacobsen MD Unavailable Unavailable Juany Jacobsen MD Unavailable Unavailable Juany Jacobsen MD Unavailable Unavailable Juany Jacobsen MD Unavailable Unavailable Juany Jacobsen MD Unavailable Unavailable Juany Jacobsen MD Unavailable Unavailable Juany Jacobsen MD Unavailable Unavailable Juany Jacobsen MD Unavailable Unavailable Juany Jacobsen MD Unavailable Unavailable Juany Jacobsen MD Unavailable Unavailable Juany Jacobsen MD Unavailable Unavailable Juany Jacobsen MD Unavailable Unavailable Juany Jacobsen MD Unavailable Unavailable Juany Jacobsen MD Unavailable Unavailable Juany Jacobsen MD Unavailable Unavailable Juany Jacobsen MD Unavailable Unavailable Juany Jacobsen MD Unavailable Unavailable Juany Jacobsen MD Unavailable Unavailable Juany Jacobsen MD Unavailable Unavailable Juany Jacobsen MD Unavailable Unavailable Juany Jacobsen MD Unavailable Unavailable Juany Jacobsen MD Unavailable Unavailable Juany Jacobsen MD Unavailable Unavailable Juany Jacobsen MD Unavailable Unavailable Juany Jacobsen MD Unavailable Unavailable Juany Jacobsen MD Unavailable Unavailable Juany Jacobsen MD Unavailable Unavailable Juany Jacobsen MD Unavailable Unavailable Juany Jacobsen MD Unavailable Unavailable Juany Jacobsen MD Unavailable Unavailable Juany Jacobsen MD Unavailable Unavailable Juayn Jacobsen MD Unavailable Unavailable Juany Jacobsen MD Unavailable Unavailable Juany Jacobsen MD Unavailable Unavailable Juany Jacobsen MD Unavailable Unavailable Juany Jacobsen MD Unavailable Unavailable Juany Jacobsen MD Unavailable Unavailable Stan MARIE MD Unavailable Unavailable Stan MARIE MD Unavailable Unavailable Stan MARIE MD Unavailable Unavailable Stan MARIE MD Unavailable Unavailable Stan MARIE MD Unavailable Unavailable Stan MARIE MD Unavailable Unavailable Stan MARIE MD Unavailable Unavailable Stan MARIE MD Unavailable Unavailable Stan MARIE MD Unavailable Unavailable Stan MARIE MD Unavailable Unavailable Stan MARIE MD Unavailable Unavailable Stan MARIE MD Unavailable Unavailable Stan MARIE MD Unavailable Unavailable Stan MARIE MD Unavailable Unavailable Stan MARIE MD Unavailable Unavailable Stan MARIE MD Unavailable Unavailable Stan MARIE MD Unavailable Unavailable Stan MARIE MD Unavailable Unavailable Stan MARIE MD Unavailable Unavailable Stan MARIE MD Unavailable Unavailable Stan MARIE MD Unavailable Unavailable Stan MARIE MD Unavailable Unavailable Stan MARIE MD Unavailable Unavailable Stan MARIE MD Unavailable Unavailable Stan MARIE MD Unavailable Unavailable Stan MARIE MD Unavailable Unavailable Stan MARIE MD Unavailable Unavailable Stan MARIE MD Unavailable Unavailable Stan MARIE MD Unavailable Unavailable Stan MARIE MD Unavailable Unavailable Stan MARIE MD Unavailable Unavailable Stan MARIE MD Unavailable Unavailable Stan MARIE MD Unavailable Unavailable Stan MARIE MD Unavailable Unavailable Stan MARIE MD Unavailable Unavailable Stan MARIE MD Unavailable Unavailable Stan MARIE MD Unavailable Unavailable Stan MARIE MD Unavailable Unavailable Stan MARIE MD Unavailable Unavailable Stan MARIE MD Unavailable Unavailable Stan MARIE MD Unavailable Unavailable Stan MARIE MD Unavailable Unavailable Stan MARIE MD Unavailable Unavailable Stan MARIE MD Unavailable Unavailable Stan MARIE MD Unavailable Unavailable FRANK, H LISETH MD Unavailable Unavailable FRANK, H LISETH HAIDER Unavailable Unavailable FRANK, H LISETH MD Unavailable Unavailable FRANK, H LISETH MD Unavailable Unavailable FRANK, H LISETH MD Unavailable Unavailable FRANK, H LISETH MD Unavailable Unavailable FRANK, H LISETH MD Unavailable Unavailable FRANK, H LISETH MD Unavailable Unavailable FRANK, H LISETH MD Unavailable Unavailable FRANK, H LISETH MD Unavailable Unavailable FRANK, H LISETH MD Unavailable Unavailable FRANK, H LISETH MD Unavailable Unavailable FRANK, H LISETH MD Unavailable Unavailable FRANK, H LISETH MD Unavailable Unavailable FRANK, H LISETH MD Unavailable Unavailable FRANK, H LISETH MD Unavailable Unavailable FRANK, H LISETH MD Unavailable Unavailable FRANK, H LISETH MD Unavailable Unavailable FRANK, H LISETH MD Unavailable Unavailable FRANK, H LISETH MD Unavailable Unavailable FRANK, H LISETH MD Unavailable Unavailable FRANK, H LISETH MD Unavailable Unavailable FRANK, H LISETH MD Unavailable Unavailable FRANK, H LISETH MD Unavailable Unavailable FRANK, H LISETH MD Unavailable Unavailable FRANK, H LISETH MD Unavailable Unavailable FRANK, H LISETH MD Unavailable Unavailable FRANK, H LISETH MD Unavailable Unavailable FRANK, H LISETH MD Unavailable Unavailable FRANK, H LISETH MD Unavailable Unavailable FRANK, H LISETH MD Unavailable Unavailable FRANK, H LISETH MD Unavailable Unavailable BEREKET GRIGGS Unavailable Unavailable Finch, Lexis LINING FELLER Unavailable Unavailable Finch, Lexis LINING FELLER Unavailable Unavailable Finch, Lexis LINING FELLER Unavailable Unavailable Finch, Lexis LINING FELLER Unavailable Unavailable Finch, Lexis LINING FELLER Unavailable Unavailable Finch, Lexis LINING FELLER Unavailable Unavailable Finch, Lexis LINING FELLER Unavailable Unavailable Finch, Lexis LINING FELLER Unavailable Unavailable Finch, Lexis LINING FELLER Unavailable Unavailable Finch, Lexis LINING FELLER Unavailable Unavailable Finch, Lexis LINING FELLER Unavailable Unavailable Finch, Lexis LINING FELLER Unavailable Unavailable Finch, Lexis LINING FELLER Unavailable Unavailable Finch, Lexis LINING FELLER Unavailable Unavailable Finch, Lexis LINING FELLER Unavailable Unavailable Finch, Lexis LINING FELLER Unavailable Unavailable Finch, Lexis LINING FELLER Unavailable Unavailable Finch, Lexis LINING FELLER Unavailable Unavailable Finch, Lexis LINING FELLER Unavailable Unavailable Finch, Lexis LINING FELLER Unavailable Unavailable Finch, Lexis LINING FELLER Unavailable Unavailable Finch, Lexis LINING FELLER Unavailable Unavailable Finch, Lexis LINING FELLER Unavailable Unavailable Finch, Lexis LINING FELLER Unavailable Unavailable Finch, Lexis LINING FELLER Unavailable Unavailable Finch, Lexis LINING FELLER Unavailable Unavailable Finch, Lexis LINING FELLER Unavailable Unavailable Finch, Lexis LINING FELLER Unavailable Unavailable Finch, Lexis LINING FELLER Unavailable Unavailable Finch, Lexis LINING FELLER Unavailable Unavailable Finch, Lexis LINING FELLER Unavailable Unavailable Finch, Lexis LINING FELLER Unavailable Unavailable Finch, Lexis LINING FELLER Unavailable Unavailable Finch, Lexis LINING FELLER Unavailable Unavailable Finch, Lexis LINING FELLER Unavailable Unavailable Finch, Lexis LINING FELLER Unavailable Unavailable Finch, Lexis LINING FELLER Unavailable Unavailable Finch, Lexis LINING FELLER Unavailable Unavailable Finch, Lexis LINING FELLER Unavailable Unavailable Finch, Lexis LINING FELLER Unavailable Unavailable Finch, Lexis LINING FELLER Unavailable Unavailable Finch, Lexis LINING FELLER Unavailable Unavailable SYMENOW, G CHRISTOPHER PA Unavailable Unavailable SYMENOW, G CHRISTOPHER PA Unavailable Unavailable SYMENOW, G CHRISTOPHER PA Unavailable Unavailable SYMENOW, G CHRISTOPHER PA Unavailable Unavailable SYMENOW, G CHRISTOPHER PA Unavailable Unavailable SYMENOW, G CHRISTOPHER PA Unavailable Unavailable SYMENOW, G CHRISTOPHER PA Unavailable Unavailable SYMENOW, G CHRISTOPHER PA Unavailable Unavailable SYMENOW, G CHRISTOPHER PA Unavailable Unavailable SYMENOW, G CHRISTOPHER PA Unavailable Unavailable SYMENOW, G CHRISTOPHER PA Unavailable Unavailable SYMENOW, G CHRISTOPHER PA Unavailable Unavailable SYMENOW, G CHRISTOPHER PA Unavailable Unavailable SYMENOW, G CHRISTOPHER PA Unavailable Unavailable SYMENOW, G CHRISTOPHER PA Unavailable Unavailable SYMENOW, G CHRISTOPHER PA Unavailable Unavailable SARINA, SANJANA PA Unavailable Unavailable SARINA, SANJANA PA Unavailable Unavailable SARINA, SANJANA PA Unavailable Unavailable SARINA, SANJANA PA Unavailable Unavailable SARINA, SANJANA PA Unavailable Unavailable SARINA, SANJANA PA Unavailable Unavailable SARINA, SANJANA PA Unavailable Unavailable SARINA, SANJANA PA Unavailable Unavailable SARINA, SANJANA PA Unavailable Unavailable SARINA, SANJANA PA Unavailable Unavailable SARINA, SANJANA PA Unavailable Unavailable SARINA, SANJANA PA Unavailable Unavailable SARINA, SANJANA PA Unavailable Unavailable SARINA, SANJANA PA Unavailable Unavailable SARINA, SANJANA PA Unavailable Unavailable SARINA, SANJANA PA Unavailable Unavailable SARINA, SANJANA PA Unavailable Unavailable SARINA, SANJANA PA Unavailable Unavailable SARINA, SANJANA PA Unavailable Unavailable SARINA, SANJANA PA Unavailable Unavailable SARINA, SANJANA PA Unavailable Unavailable SARINA, SANJANA PA Unavailable Unavailable SARINA, SANJANA PA Unavailable Unavailable SARINA, SANJANA PA Unavailable Unavailable SARINA, SANJANA PA Unavailable Unavailable SARINA, SANJANA PA Unavailable Unavailable SARINA, SANJANA PA Unavailable Unavailable SARINA, SANJANA PA Unavailable Unavailable SARINA, SANJANA PA Unavailable Unavailable SARINA, SANJANA PA Unavailable Unavailable SARINA, SANJANA PA Unavailable Unavailable SARNIA, SANJANA PA Unavailable Unavailable SARINA, SANJANA PA Unavailable Unavailable SARINA, SANJANA PA Unavailable Unavailable SARINA, SANJANA PA Unavailable Unavailable SARINA, SANJANA PA Unavailable Unavailable Jumalon, M Jayleen LINING FELLER Unavailable Unavailable Jumalon, M Jayleen LINING FELLER Unavailable Unavailable Jumalon, M Jayleen LINING FELLER Unavailable Unavailable Jumalon, M Jayleen LINING FELLER Unavailable Unavailable Jumalon, M Jayleen LINING FELLER Unavailable Unavailable Jumalon, M Jayleen LINING FELLER Unavailable Unavailable Jumalon, M Jayleen LINING FELLER Unavailable Unavailable Jumalon, M Jayleen LINING FELLER Unavailable Unavailable Jumalon, M Jayleen LINING FELLER Unavailable Unavailable Jumalon, M Jayleen LINING FELLER Unavailable Unavailable Jumalon, M Jayleen LINING FELLER Unavailable Unavailable Jumalon, M Jayleen LINING FELLER Unavailable Unavailable Jumalon, M Jayleen LINING FELLER Unavailable Unavailable Jumalon, M Jayleen LINING FELLER Unavailable Unavailable Jumalon, M Jayleen LINING FELLER Unavailable Unavailable Jumalon, M Jayleen LINING FELLER Unavailable Unavailable Jumalon, M Jayleen LINING FELLER Unavailable Unavailable Jumalon, M Jayleen LINING FELLER Unavailable Unavailable Jumalon, M Jayleen LINING FELLER Unavailable Unavailable Jumalon, M Jayleen LINING FELLER Unavailable Unavailable Jumalon, M Jayleen LINING FELLER Unavailable Unavailable Jumalon, M Jayleen LINING FELLER Unavailable Unavailable Jumalon, M Jayleen LINING FELLER Unavailable Unavailable Jumalon, M Jayleen LINING FELLER Unavailable Unavailable Jumalon, M Jayleen LINING FELLER Unavailable Unavailable Jumalon, M Jayleen LINING FELLER Unavailable Unavailable Jumalon, M Jayleen LINING FELLER Unavailable Unavailable Jumalon, M Jayleen LINING FELLER Unavailable Unavailable Jumalon, M Jayleen LINING FELLER Unavailable Unavailable Jumalon, M Jayleen LINING FELLER Unavailable Unavailable TOMÁS (FRANK), Win LARSON MD Unavailable Unavailab alvin ENGLAND (FRANK), Win LARSON MD Unavailable Unavailab alvin ENGLAND (FRANK), Win LARSON MD Unavailable Unavailab alvin ENGLAND (FRANK), Win LARSON MD Unavailable Unavailab alvin ENGLAND (FRANK), Win LARSON MD Unavailable Unavailab alvin ENGLAND (FRANK), Win LARSON MD Unavailable Unavailab le TOMÁS (FRANK), Win LARSON MD Unavailable Unavailab le TOMÁS (FRANK), Win LARSON MD Unavailable Unavailab le TOMÁS (FRANK), Win LARSON MD Unavailable Unavailab le TOMÁS (FRANK), Win LARSON MD Unavailable Unavailab le TOMÁS (FRANK), Win LARSON MD Unavailable Unavailab le TOMÁS (FRANK), Win LARSON MD Unavailable Unavailab le TOMÁS (FRANK), Win LARSON MD Unavailable Unavailab le TOMÁS (FRANK), Win LARSON MD Unavailable Unavailab le TOMÁS (FRANK), Win LARSON MD Unavailable Unavailab le TOMÁS (FRANK), Win LARSON MD Unavailable Unavailab le TOMÁS (FRANK), Win LARSON MD Unavailable Unavailab le TOMÁS (FRANK), Win LARSON MD Unavailable Unavailab le TOMÁS (FRANK), Win LARSON MD Unavailable Unavailab le TOMÁS (FRANK), Win LARSON MD Unavailable Unavailab le TOMÁS (FRANK), Win LARSON MD Unavailable Unavailab le TOMÁS (FRANK), Win LARSON MD Unavailable Unavailab le TOMÁS (FRANK), Win LARSON MD Unavailable Unavailab le TOMÁS (FRANK), Win LARSON MD Unavailable Unavailab le TOMÁS (FRANK), Win LARSON MD Unavailable Unavailab le TOMÁS (FRANK), Win LARSON MD Unavailable Unavailab le TOMÁS (FRANK), Win LARSON MD Unavailable Unavailab le TOMÁS (FRANK), Win LARSON MD Unavailable Unavailab le TOMÁS (FRANK), Win LARSON MD Unavailable Unavailab le TOMÁS (FRANK), Win LARSON MD Unavailable Unavailab le TOMÁS (FRANK), Win LARSON MD Unavailable Unavailab le TOMÁS (FRANK), Win LARSON MD Unavailable Unavailab le TOMÁS (FRANK), Win LARSON MD Unavailable Unavailab le TOMÁS (FRANK), Win LARSON MD Unavailable Unavailab le TOMÁS (FRANK), Win LARSON MD Unavailable Unavailab le TOMÁS (FRANK), Win LARSON MD Unavailable Unavailab le TOMÁS (FRANK), Win LARSON MD Unavailable Unavailab le TOMÁS (FRANK), Win LARSON MD Unavailable Unavailab le TOMÁS (FRANK), Win LARSON MD Unavailable Unavailab le TOMÁS (FRANK), Win LARSON MD Unavailable Unavailab le TOMÁS (FRANK), Win LARSON MD Unavailable Unavailab le TOMÁS (FRANK), Win LARSON MD Unavailable Unavailab le TOMÁS (FRANK), Win LARSON MD Unavailable Unavailab le TOMÁS (FRANK), Win LARSON MD Unavailable Unavailab le TOMÁS (FRANK), Win LARSON MD Unavailable Unavailab le TOMÁS (FRANK), Win LARSON MD Unavailable Unavailab le TOMÁS (FRANK), Win LARSON MD Unavailable Unavailab le TOMÁS (FRANK), Win LARSON MD Unavailable Unavailab le TOMÁS (FRANK), Win LARSON MD Unavailable Unavailab le TOMÁS (FRANK), Win LARSON MD Unavailable Unavailab le TOMÁS (FRANK), Win LARSON MD Unavailable Unavailab le TOMÁS (FRANK), Win LARSON MD Unavailable Unavailab le TOMÁS (FRANK), Win LARSON MD Unavailable Unavailab le TOMÁS (FRANK), Win LARSON MD Unavailable Unavailab le TOMÁS (FRANK), Win LARSON MD Unavailable Unavailab le TOMÁS (FRANK), Win LARSON MD Unavailable Unavailab le TOMÁS (FRANK), Win LARSON MD Unavailable Unavailab le TOMÁS (FRANK), Win LARSON MD Unavailable Unavailab le TOMÁS (FRANK), Win LARSON MD Unavailable Unavailab le TOMÁS (FRANK), Win LARSON MD Unavailable Unavailab le TOMÁS (FRANK), Win LARSON MD Unavailable Unavailab le TOMÁS (FRANK), Win LARSON MD Unavailable Unavailab le TOMÁS (RFANK), Win LARSON MD Unavailable Unavailab le TOMÁS (FRANK), Win LARSON MD Unavailable Unavailab le TOMÁS (FRANK), Win LARSON MD Unavailable Unavailab le TOMÁS (FRANK), Win LARSON MD Unavailable Unavailab le TOMÁS (FRANK), Win LARSON MD Unavailable Unavailab le TOMÁS (FRANK), Win LARSON MD Unavailable Unavailab le TOMÁS (FRANK), Win LARSON MD Unavailable Unavailab le TOMÁS (FRANK), Win LARSON MD Unavailable Unavailab le TOMÁS (FRANK), Win LARSON MD Unavailable Unavailab le TOMÁS (FRANK), Win LARSON MD Unavailable Unavailab le TOMÁS (FRANK), Win LARSON MD Unavailable Unavailab le TOMÁS (FRANK), Win LARSON MD Unavailable Unavailab le TOMÁS (FRANK), Win LARSON MD Unavailable Unavailab le TOMÁS (FRANK), Win LARSON MD Unavailable Unavailab le TOMÁS (FRANK), Win LARSON MD Unavailable Unavailab le TOMÁS (FRANK), Win LARSON MD Unavailable Unavailab le TOMÁS (FRANK), Win LARSON MD Unavailable Unavailab le TOMÁS (FRANK), Win LARSON MD Unavailable Unavailab le TOMÁS (FRANK), Win LARSON MD Unavailable Unavailab le TOMÁS (FRANK), Win LARSON MD Unavailable Unavailab le TOMÁS (FRANK), Win LARSON MD Unavailable Unavailab le TOMÁS (FRANK), Win LARSON MD Unavailable Unavailab le TOMÁS (FRANK), Win LARSON MD Unavailable Unavailab le TOMÁS (FRANK), Win LARSON MD Unavailable Unavailab le TOMÁS (FRANK), Win LARSON MD Unavailable Unavailab le DiVencenzo, Mitchell DO Unavailable Unavailable DiVencenzo, Mitchell DO Unavailable Unavailable DiVencenzo, Mitchell DO Unavailable Unavailable DiVencenzo, Mitchell DO Unavailable Unavailable DiVencenzo, Mitchell DO Unavailable Unavailable DESJARLAIS, NIA BATHHOUSE KEEPER Unavailable Unavailable DESJARLAIS, NIA BATHHOUSE KEEPER Unavailable Unavailable DESJARLAIS, NIA BATHHOUSE KEEPER Unavailable Unavailable DESJARLAIS, NIA BATHHOUSE KEEPER Unavailable Unavailable DESJARLAIS, NIA BATHHOUSE KEEPER Unavailable Unavailable DESJARLAIS, NIA BATHHOUSE KEEPER Unavailable Unavailable DESJARLAIS, NIA BATHHOUSE KEEPER Unavailable Unavailable DESJARLAIS, NIA BATHHOUSE KEEPER Unavailable Unavailable DESJARLAIS, NIA BATHHOUSE KEEPER Unavailable Unavailable DESJARLAIS, NIA BATHHOUSE KEEPER Unavailable Unavailable JANE BLAIR MD Unavailable Unavailable JANE BLAIR MD Unavailable Unavailable JANE BLAIR MD Unavailable Unavailable JANE BLAIR MD Unavailable Unavailable JANE BLAIR MD Unavailable Unavailable JANE BLAIR MD Unavailable Unavailable JANE BLAIR MD Unavailable Unavailable JANE BLAIR MD Unavailable Unavailable JANE BLAIR MD Unavailable Unavailable JANE BLAIR MD Unavailable Unavailable JANE BLAIR MD Unavailable Unavailable JANE BLAIR MD Unavailable Unavailable JANE BLAIR MD Unavailable Unavailable JANE BLAIR MD Unavailable Unavailable JANE BLAIR MD Unavailable Unavailable JANE BLAIR MD Unavailable Unavailable JANE BLAIR MD Unavailable Unavailable JANE BLAIR MD Unavailable Unavailable JANE BLAIR MD Unavailable Unavailable KHAIRALLAH, RAMZI MD Unavailable Unavailable KHAIRALLAH, RAMZI MD Unavailable Unavailable KHAIRALLAH, RAMZI MD Unavailable Unavailable KHAIRALLAH, RAMZI MD Unavailable Unavailable KHAIRALLAH, RAMZI MD Unavailable Unavailable KHAIRALLAH, RAMZI MD Unavailable Unavailable KHAIRALLAH, RAMZI MD Unavailable Unavailable KHAIRALLAH, RAMZI MD Unavailable Unavailable KHAIRALLAH, RAMZI MD Unavailable Unavailable KHAIRALLAH, RAMZI MD Unavailable Unavailable KHAIRALLAH, RAMZI MD Unavailable Unavailable KHAIRALLAH, RAMZI MD Unavailable Unavailable KHAIRALLAH, RAMZI MD Unavailable Unavailable KHAIRALLAH, RAMZI MD Unavailable Unavailable KHAIRALLAH, RAMZI MD Unavailable Unavailable KHAIRALLAH, RAMZI MD Unavailable Unavailable KHAIRALLAH, RAMZI MD Unavailable Unavailable KHAIRALLAH, RAMZI MD Unavailable Unavailable KHAIRALLAH, RAMZI MD Unavailable Unavailable KHAIRALLAH, RAMZI MD Unavailable Unavailable KHAIRALLAH, RAMZI MD Unavailable Unavailable KHAIRALLAH, RAMZI MD Unavailable Unavailable KHAIRALLAH, RAMZI MD Unavailable Unavailable KHAIRALLAH, RAMZI MD Unavailable Unavailable KHAIRALLAH, RAMZI MD Unavailable Unavailable KHAIRALLAH, RAMZI MD Unavailable Unavailable KHAIRALLAH, RAMZI MD Unavailable Unavailable KHAIRALLAH, RAMZI MD Unavailable Unavailable KHAIRALLAH, RAMZI MD Unavailable Unavailable KHAIRALLAH, RAMZI MD Unavailable Unavailable KHAIRALLAH, RAMZI MD Unavailable Unavailable KHAIRALLAH, RAMZI MD Unavailable Unavailable KHAIRALLAH, RAMZI MD Unavailable Unavailable KHAIRALLAH, RAMZI MD Unavailable Unavailable KHAIRALLAH, RAMZI MD Unavailable Unavailable KHAIRALLAH, RAMZI MD Unavailable Unavailable KHAIRALLAH, RAMZI MD Unavailable Unavailable KHAIRALLAH, RAMZI MD Unavailable Unavailable KHAIRALLAH, RAMZI MD Unavailable Unavailable KHAIRALLAH, RAMZI MD Unavailable Unavailable KHAIRALLAH, RAMZI MD Unavailable Unavailable KHAIRALLAH, RAMZI MD Unavailable Unavailable KHAIRALLAH, RAMZI MD Unavailable Unavailable KHAIRALLAH, RAMZI MD Unavailable Unavailable KHAIRALLAH, RAMZI MD Unavailable Unavailable KHAIRALLAH, RAMZI MD Unavailable Unavailable KHAIRALLAH, RAMZI MD Unavailable Unavailable KHAIRALLAH, RAMZI MD Unavailable Unavailable KHAIRALLAH, RAMZI MD Unavailable Unavailable KHAIRALLAH, RAMZI MD Unavailable Unavailable KHAIRALLAH, RAMZI MD Unavailable Unavailable JANE BLAIR MD Unavailable Unavailable KHDUDLEY, JANE MD Unavailable Unavailable KHJANE BUCKNER MD Unavailable Unavailable KHJANE BUCKNER MD Unavailable Unavailable KHJANE BUCKNER MD Unavailable Unavailable KHAIRALLLINDA, RAMNICK MD Unavailable Unavailable KHAIRBEBO, RAMNICK MD Unavailable Unavailable KHAIRBEBO, RAMNICK MD Unavailable Unavailable KHAIRALLLINDA, RAMNICK MD Unavailable Unavailable KHAIRALLLINDA, RAMNICK MD Unavailable Unavailable KHAIRALLLINDA, RAMNICK MD Unavailable Unavailable KHAIRALLLINDA, RAMZI MD Unavailable Unavailable KHAIRALLLINDA, RAMZI MD Unavailable Unavailable KHAIRALLLINDA, RAMNICK MD Unavailable Unavailable KHDUDLEY, RAMNICK MD Unavailable Unavailable ROSSY, JANE MD Unavailable Unavailable ROSSY, JANE MD Unavailable Unavailable KHDUDLEY, JANE MD Unavailable Unavailable ROSSY, JANE MD Unavailable Unavailable JASON, ALLY ENID PA Unavailable Unavailable JASON, ALLY ENID PA Unavailable Unavailable JASON, ALLY ENID PA Unavailable Unavailable JASON, ALLY ENID PA Unavailable Unavailable JASON, ALLY ENID PA Unavailable Unavailable JASON, ALLY ENID PA Unavailable Unavailable JASON, ALLY ENID PA Unavailable Unavailable JASON, ALLY ENID PA Unavailable Unavailable JASON, ALLY EIND PA Unavailable Unavailable JASON, ALLY ENID PA Unavailable Unavailable JASON, ALLY ENID PA Unavailable Unavailable JASON, ALLY ENID PA Unavailable Unavailable JASON, ALLY ENID PA Unavailable Unavailable JASON, ALLY ENID PA Unavailable Unavailable JASON, ALLY ENID PA Unavailable Unavailable JASON, ALLY ENID PA Unavailable Unavailable JASON, ALLY ENID PA Unavailable Unavailable JASON, ALLY ENID PA Unavailable Unavailable JASON, ALLY ENID PA Unavailable Unavailable JASON, ALLY ENID PA Unavailable Unavailable JASON, ALLY ENID PA Unavailable Unavailable JASON, ALLY ENID PA Unavailable Unavailable Kay, Eunice BATHHOUSE KEEPER Unavailable Unavailable Kay, Eunice BATHHOUSE KEEPER Unavailable Unavailable Kay, Eunice BATHHOUSE KEEPER Unavailable Unavailable Kay, Eunice BATHHOUSE KEEPER Unavailable Unavailable Kay, Eunice BATHHOUSE KEEPER Unavailable Unavailable Kay, Eunice BATHHOUSE KEEPER Unavailable Unavailable Kay, Eunice BATHHOUSE KEEPER Unavailable Unavailable Kay, Eunice BATHHOUSE KEEPER Unavailable Unavailable Kay, Eunice BATHHOUSE KEEPER Unavailable Unavailable Kay, Eunice BATHHOUSE KEEPER Unavailable Unavailable Kay, Eunice BATHHOUSE KEEPER Unavailable Unavailable Kay, Eunice BATHHOUSE KEEPER Unavailable Unavailable Kay, Eunice BATHHOUSE KEEPER Unavailable Unavailable CODY, KEERTHI PA Unavailable Unavailable CODY, KEERTHI PA Unavailable Unavailable CODY, KEERTHI PA Unavailable Unavailable CODY, KEERTHI PA Unavailable Unavailable CODY, KEERTHI PA Unavailable Unavailable CODY, KEERTHI PA Unavailable Unavailable CODY, KEERTHI PA Unavailable Unavailable CODY, KEERTHI PA Unavailable Unavailable CODY, KEERTHI PA Unavailable Unavailable CODY, KEERTHI PA Unavailable Unavailable CODY, KEERTHI PA Unavailable Unavailable CODY, KEERTHI PA Unavailable Unavailable CODY, KEERTHI PA Unavailable Unavailable CODY, KEERTHI PA Unavailable Unavailable CODY, KEERTHI PA Unavailable Unavailable HALE, L AMY MD Unavailable Unavailable HALE, L AMY MD Unavailable Unavailable BRISTOL, L AMY MD Unavailable Unavailable BRISTOL, L AMY MD Unavailable Unavailable BRISTOL, L AMY MD Unavailable Unavailable BRISTOL, L AMY MD Unavailable Unavailable BRISTOL, L AMY MD Unavailable Unavailable BRISTOL, L AMY MD Unavailable Unavailable BRISTOL, L AMY MD Unavailable Unavailable BRISTOL, L AMY MD Unavailable Unavailable BRISTOL, L AMY MD Unavailable Unavailable BRISTOL, L AMY MD Unavailable Unavailable BRISTOL, L AMY MD Unavailable Unavailable BRISTOL, L AMY MD Unavailable Unavailable BRISTOL, L AMY MD Unavailable Unavailable BRISTOL, L AMY MD Unavailable Unavailable BRISTOL, L AMY MD Unavailable Unavailable BRISTOL, L AMY MD Unavailable Unavailable BRISTOL, L AMY MD Unavailable Unavailable BRISTOL, L AMY MD Unavailable Unavailable BRISTOL, L AMY MD Unavailable Unavailable BRISTOL, L AMY MD Unavailable Unavailable BRISTOL, L AMY MD Unavailable Unavailable BRISTOL, L AMY MD Unavailable Unavailable BRISTOL, L AMY MD Unavailable Unavailable BRISTOL, L AMY MD Unavailable Unavailable BRISTOL, L AMY MD Unavailable Unavailable BRISTOL, L AMY MD Unavailable Unavailable BRISTOL, L AMY MD Unavailable Unavailable BRISTOL, L AMY MD Unavailable Unavailable BRISTOL, L AMY MD Unavailable Unavailable BRISTOL, L AMY MD Unavailable Unavailable BRISTOL, L AMY MD Unavailable Unavailable BRISTOL, L AMY MD Unavailable Unavailable HALE, L AMY MD Unavailable Unavailable BRISTOL, L AMY MD Unavailable Unavailable BRISTOL, L AMY MD Unavailable Unavailable BRISTOL, L AMY MD Unavailable Unavailable BRISTOL, L AMY MD Unavailable Unavailable BRISTOL, L AMY MD Unavailable Unavailable HALE, L AMY MD Unavailable Unavailable HALE, L AYM MD Unavailable Unavailable HALE, L AMY MD Unavailable Unavailable HALE, L AMY MD Unavailable Unavailable HALE, L AMY MD Unavailable Unavailable HALE, L AMY MD Unavailable Unavailable HALE, L AMY MD Unavailable Unavailable HALE, L AMY MD Unavailable Unavailable HALE, L AMY MD Unavailable Unavailable HALE, L AMY MD Unavailable Unavailable HALE, L AMY MD Unavailable Unavailable HALE, L AMY MD Unavailable Unavailable HALE, L AMY MD Unavailable Unavailable HALE, L AMY MD Unavailable Unavailable HALE, L AMY MD Unavailable Unavailable HALE, L AMY MD Unavailable Unavailable HALE, L AMY MD Unavailable Unavailable HALE, L AMY MD Unavailable Unavailable HALE, L AMY MD Unavailable Unavailable HALE, L AMY MD Unavailable Unavailable HALE, L AMY MD Unavailable Unavailable HALE, L AMY MD Unavailable Unavailable HALE, L AMY MD Unavailable Unavailable HALE, L AMY MD Unavailable Unavailable HALE, L AMY MD Unavailable Unavailable HALE, L AMY MD Unavailable Unavailable HALE, L AMY MD Unavailable Unavailable HALE, L AMY MD Unavailable Unavailable HALE, L AMY MD Unavailable Unavailable HALE, L AMY MD Unavailable Unavailable HALE, L AMY MD Unavailable Unavailable HALE, L AMY MD Unavailable Unavailable HALE, L AMY MD Unavailable Unavailable LETTIERE, A KEYSHAWN PA Unavailable Unavailable LETTIERE, A KEYSHAWN PA Unavailable Unavailable LETTIERE, A KEYSHAWN PA Unavailable Unavailable LETTIERE, A KEYSHAWN PA Unavailable Unavailable LETTIERE, A KEYSHAWN PA Unavailable Unavailable LETTIERE, A KEYSHAWN PA Unavailable Unavailable LETTIERE, A KEYSHAWN PA Unavailable Unavailable LETTIERE, A KEYSHAWN PA Unavailable Unavailable LETTIERE, A KEYSHAWN PA Unavailable Unavailable LETTIERE, A KEYSHAWN PA Unavailable Unavailable LETTIERE, A KEYSHAWN PA Unavailable Unavailable LETTIERE, A KEYSHAWN PA Unavailable Unavailable LETTIERE, A KEYSHAWN PA Unavailable Unavailable LETTIERE, A KEYSHAWN PA Unavailable Unavailable LETTIERE, A KEYSHAWN PA Unavailable Unavailable LETTIERE, A KEYSHAWN PA Unavailable Unavailable LETTIERE, A KEYSHAWN PA Unavailable Unavailable LETTIERE, A KEYSHAWN PA Unavailable Unavailable LETTIERE, A KEYSHAWN PA Unavailable Unavailable LETTIERE, A KEYSHAWN PA Unavailable Unavailable LETTIERE, A KEYSHAWN PA Unavailable Unavailable LETTIERE, A KEYSHAWN PA Unavailable Unavailable LETTIERE, A KEYSHAWN PA Unavailable Unavailable LETTIERE, A KEYSHAWN PA Unavailable Unavailable LETTIERE, A KEYSHAWN PA Unavailable Unavailable LETTIERE, A KEYSHAWN PA Unavailable Unavailable LETTIERE, A KEYSHAWN PA Unavailable Unavailable LETTIERE, A KEYSHAWN PA Unavailable Unavailable LETTIERE, A KEYSHAWN PA Unavailable Unavailable LETTIERE, A KEYSHAWN PA Unavailable Unavailable LETTIERE, A KEYSHAWN PA Unavailable Unavailable BROWNLewis MARGARITA Unavailable Unavailable Ludwin Ramírez PA-C Unavailable Ludwin Ramírez PA-C Unavailable Ludwin Ramírez PA-C Unavailable Ludwin Ramírez PA-C Unavailable Ludwin Ramírez PA-C Unavailable MEDENT_23, [id number] Unavailable [phone] [facility], [id number] Unavailable [phone] [facility], [id number] Unavailable [phone] [facility], [id number] Unavailable [phone] [facility], [id number] Unavailable [phone] [facility], [id number] Unavailable [phone] [facility], [id number] Unavailable [phone] [facility], [id number] Unavailable [phone] [facility]23, [id number] Unavailable [phone] [facility]23, [id number] Unavailable [phone] [facility], [id number] Unavailable [phone] Margarita Beatty Unavailable Margarita Beatty Unavailable ERNA TOURE Unavailable Unavailable ELIZABETH, L LYLA PA Unavailable Unavailable ELIZABETH, L LYLA PA Unavailable Unavailable ELIZABETH, L LYLA PA Unavailable Unavailable ELIZABETH, L LYLA PA Unavailable Unavailable ELIZABETH, L LYLA PA Unavailable Unavailable ELIZABETH, L LYLA PA Unavailable Unavailable ELIZABETH, L LYLA PA Unavailable Unavailable ELIZABETH, L LYLA PA Unavailable Unavailable ELIZABETH, L LYLA PA Unavailable Unavailable ELIZABETH, L LYLA PA Unavailable Unavailable ELIZABETH, L LYLA PA Unavailable Unavailable ELIZABETH, L LYLA PA Unavailable Unavailable ELIZABETH, L LYLA PA Unavailable Unavailable ELIZABETH, L LYLA PA Unavailable Unavailable ELIZABETH, L LYLA PA Unavailable Unavailable ELIZABETH, L LYLA PA Unavailable Unavailable ELIZABETH, L LYLA PA Unavailable Unavailable ELIZABETH, L LYLA PA Unavailable Unavailable ELIZABETH, L LYLA PA Unavailable Unavailable ELIZABETH, Lewis ARITA PA Unavailable Unavailable ELIZABETH, Lewis ARITA PA Unavailable Unavailable ELIZABETH, Lewis ARITA PA Unavailable Unavailable Mary Lou, A Sun LINING FELLER Unavailable Unavailable Mary Lou, A Sun LINING FELLER Unavailable Unavailable Mary Lou, A Sun LINING FELLER Unavailable Unavailable Mary Lou, A Sun LINING FELLER Unavailable Unavailable Mary Lou, A Sun LINING FELLER Unavailable Unavailable Mary Lou, A Sun LINING FELLER Unavailable Unavailable Mary Lou, A Sun LINING FELLER Unavailable Unavailable Mary Lou, A Sun LINING FELLER Unavailable Unavailable Mary Lou, A Sun LINING FELLER Unavailable Unavailable Mary Lou, A Sun LINING FELLER Unavailable Unavailable Mary Lou, A Sun LINING FELLER Unavailable Unavailable Mary Lou, A Sun LINING FELLER Unavailable Unavailable Mary Lou, A Sun LINING FELLER Unavailable Unavailable Mary Lou, A Sun LINING FELLER Unavailable Unavailable Mary Lou, A Sun LINING FELLER Unavailable Unavailable Mary Lou, A Sun LINING FELLER Unavailable Unavailable Mary Lou, A Sun LINING FELLER Unavailable Unavailable Mary Lou, A Sun LINING FELLER Unavailable Unavailable Mary Lou, A Sun LINING FELLER Unavailable Unavailable Mary Lou, A Sun LINING FELLER Unavailable Unavailable Mary Lou, A Sun LINING FELLER Unavailable Unavailable Mary Lou, A Sun LINING FELLER Unavailable Unavailable Mary Lou, A Sun LINING FELLER Unavailable Unavailable Mary Lou, A Sun LINING FELLER Unavailable Unavailable Mary Lou, A Sun LINING FELLER Unavailable Unavailable Mary Lou, A Sun LINING FELLER Unavailable Unavailable Mary Lou, A Sun LINING FELLER Unavailable Unavailable Mary Lou, A Sun LINING FELLER Unavailable Unavailable Mary Lou, A Sun LINING FELLER Unavailable Unavailable Mary Lou, A Sun LINING FELLER Unavailable Unavailable Mary Lou, A Sun LINING FELLER Unavailable Unavailable Mary Lou, A Sun LINING FELLER Unavailable Unavailable Mary Lou, A Sun LINING FELLER Unavailable Unavailable Mary Lou, A Sun LINING FELLER Unavailable Unavailable Mary Lou, A Sun LINING FELLER Unavailable Unavailable Mary Lou, A Sun LINING FELLER Unavailable Unavailable Mary Lou, A Sun LINING FELLER Unavailable Unavailable Mary Lou, A Sun LINING FELLER Unavailable Unavailable Mary Lou, A Sun LINING FELLER Unavailable Unavailable Mary Lou, A Sun LINING FELLER Unavailable Unavailable Mary Lou, A Sun LINING FELLER Unavailable Unavailable Mary Lou, A Sun LINING FELLER Unavailable Unavailable Mary Lou, A Sun LINING FELLER Unavailable Unavailable Mary Lou, A Sun LINING FELLER Unavailable Unavailable Mary Lou, A Sun LINING FELLER Unavailable Unavailable Mary Lou, A Sun LINING FELLER Unavailable Unavailable Mary Lou, A Sun LINING FELLER Unavailable Unavailable Mary Lou, A Sun LINING FELLER Unavailable Unavailable Mary Lou, A Sun LINING FELLER Unavailable Unavailable Mary Lou, A Sun LINING FELLER Unavailable Unavailable Mary Lou, A Sun LINING FELLER Unavailable Unavailable Mary Lou, A Sun LINING FELLER Unavailable Unavailable Mary Lou, A Sun LINING FELLER Unavailable Unavailable Mary Lou, A Sun LINING FELLER Unavailable Unavailable Cueva, W Mitchell RPA-C Unavailable Unavailable Cueva, W Mitchell RPA-C Unavailable Unavailable Cueva, W Mitchell RPA-C Unavailable Unavailable Cueva, W Mitchell RPA-C Unavailable Unavailable Cueva, W Mitchell RPA-C Unavailable Unavailable Cueva, W Mitchell RPA-C Unavailable Unavailable Cueva, W Mitchell RPA-C Unavailable Unavailable Cueva, W Mitchell RPA-C Unavailable Unavailable Cueva, W Mitchell RPA-C Unavailable Unavailable Cueva, W Mitchell RPA-C Unavailable Unavailable Cueva, W Mitchell RPA-C Unavailable Unavailable Cueva, W Mitchell RPA-C Unavailable Unavailable Cuvea, W Mitchell RPA-C Unavailable Unavailable Cueva, W Mitchell RPA-C Unavailable Unavailable Cueva, W Mitchell RPA-C Unavailable Unavailable Cueva, W Mitchell RPA-C Unavailable Unavailable Cueva, W Mitchell RPA-C Unavailable Unavailable Re-disclosure Warning The records that you are about to access may contain information from federally-assisted alcohol or drug abuse programs. If such information is present, then the following federally mandated warning applies: This information has been disclosed to you from records protected by federal confidentiality rules (42 CFR part 2). The federal rules prohibit you from making any further disclosure of this information unless further disclosure is expressly permitted by the written consent of the person to whom it pertains or as otherwise permitted by 42 CFR part 2. A general authorization for the release of medical or other information is NOT sufficient for this purpose. The Federal rules restrict any use of the information to criminally investigate or prosecute any alcohol or drug abuse patient.The records that you are about to access may contain highly sensitive health information, the redisclosure of which is protected by Article 27-F of the [facility] Public Health law. If you continue you may have access to information: Regarding HIV / AIDS; Provided by facilities licensed or operated by the [facility] Office of Mental Health; or Provided by the [facility] Office for People With Developmental Disabilities. If such information is present, then the following [facility] mandated warning applies: This information has been disclosed to you from confidential records which are protected by state law. State law prohibits you from making any further disclosure of this information without the specific written consent of the person to whom it pertains, or as otherwise permitted by law. Any unauthorized further disclosure in violation of state law may result in a fine or assisted sentence or both. A general authorization for the release of medical or other information is NOT sufficient authorization for further disc losure. Family History Family Member Name Family Member Gender Family Member Status Date o f Status Description Data Source(s) Unknown Male Problem MEDENT ([facility] ) Encounters Encounter Providers Location Date Indications Data Source(s ) Unknown [address] [facility] [id number] 08/05/2021 12:00:00 AM EST eCW1 ([facility]) Outpatient Attender: SANJANA licea 07/27/2021 08:40:00 AM EST MEDENT ([facility]) Outpatient Attender: NIA CANTU NP 07/24/2021 04: 30:00 PM [facility] Outpatient Attender: BEREKET GRIGGS 07/17/2021 05:00:00 PM [facility] Outpatient Attender: NIA CANTU NP 07/10/2021 03: 20:00 PM [facility] Outpatient Attender: BEREKET GRIGGS 07/08/2021 04:59:00 PM [facility] Outpatient Attender: BEREKET GRIGGS 06/30/2021 08:54:00 AM [facility] Emergency Attender: Ludwin HSU-CReferrer: Lexis Finch [facility]-ER 06/24/2021 01:11:00 PM EDT - 06/24/2021 02:31:00 PM [facility] Patient discharged. Unknown [address] [facility] [place] [address] 06/24/2021 12:00:00 AM EDT eCW1 ([facility]) Outpatient [address] [facility] [place] [address] 05/27/2021 12:00:00 AM EDT eCW1 ([facility]) Unknown [address] [facility] [place] [address] 05/27/2021 12:00:00 AM EDT eCW1 ([facility]) Emergency Attender: ENID DANIELefvashtier: Farooq Finch [facility] EMERGENCY ROOM-ER 04/29/2021 05:54:00 PM EDT - 04/29/2021 09:31:00 PM [facility] Patient discharged. Outpatient Attender: NIA CANTU NP 04/17/2021 04: 40:00 PM [facility] Outpatient Attender: NIA CANTU NP 02/28/2021 11: 18:00 AM [facility] Outpatient [address] [facility] [place] [address] 02/20/2021 12:00:00 AM EDT eCW1 ([facility]) Unknown [address] [facility] [place] [address] 02/14/2021 12:00:00 AM EDT eCW1 ([facility]) Outpatient Attender: SANJANA licea 02/06/2021 05:10:00 PM EDT [facility] ([facility]) Unknown [address] [facility] [place] [address] 02/06/2021 12:00:00 AM EDT eCW1 ([facility]) Unknown [address] [facility] [place] [address] 02/06/2021 12:00:00 AM EDT eCW1 ([facility]) Unknown [address] [facility] [place] [address] 02/06/2021 12:00:00 AM EDT eCW1 ([facility]) Unknown [address] [facility] [place] [address] 12/22/2020 12:00:00 AM EDT eCW1 ([facility]) Emergency Attender: ENID Whippleer: Farooq Finch [facility] EMERGENCY ROOM-ER 12/11/2020 09:49:00 AM EDT - 12/11/2020 11:44:00 AM EDT [facility] Patient discharged. Outpatient Attender: Sun Barreto FNPReferrer: Lexis Finch [facility] EMERGENCY ROOM-CLN2 12/09/2020 02:00:00 PM EDT - 12/09/2020 02:00:00 PM EDT [facility] Outpatient [facility] 12/09/2020 12:00:00 AM EDT eCW1 ([facility]) Outpatient [facility] 12/09/2020 12:00:00 AM EDT eCW1 ([facility]) Outpatient Attender: NIA CANTU NP 11/27/2020 04: 40:00 PM [facility] Emergency Attender: LYLA Pink: Jet Finch [facility] EMERGENCY ROOM-ER 10/30/2020 02:15:00 PM EST - 10/30/2020 04:25:00 PM EST [facility] Patient discharged. Attender: JANE BLAIR MD [facility] 10/01/2020 07:09:00 PM EST - 10/01/2020 07:09:00 PM EST [facility] ( [facility]) Outpatient [address] [facility] [place] [address] 10/01/2020 12:00:00 AM EST eCW1 ([facility]) Unknown [address] [facility] [place] [address] 10/01/2020 12:00:00 AM EST eCW1 ([facility]) Unknown [address] [facility] [place] [address] 10/01/2020 12:00:00 AM EST eCW1 ([facility]) Jayleen Wynne Janay, BATHHOUSE KEEPER: [id number], [place] [address], Ph. Attender: Jayleen Garciamayramichael [facility] 09/27/2020 12:00:00 AM EST ATHE NA ([facility]) Outpatient Attender: AMY HALE MDReferrer: LISETH BONDS MD 09/18/2020 12:00:00 AM [facility] Outpatient Attender: Margarita BeattyAttender: MARGARITA BEATTY 09/04/2020 06:00:00 PM [facility] Outpatient Attender: Eunice madrigal 09/02/2020 01:00:00 PM EST MEDENT ([facility]) Outpatient Attender: NIA CANTU NP 08/23/2020 04: 20:00 PM [facility] Emergency Attender: ENID GOMEZ PAReferrer: Lexis wallace [facility] 07/19/2020 05:10:00 PM EDT - 07/19/2020 06:04:00 PM EDT [facility] pital Patient discharged. Jayleen Morenojetlorena Janay, BATHHOUSE KEEPER: [address], [place] [address], Ph. Attender: Jayleen Gustafson [facility] 07/15/2020 12:00:00 AM EDT ATHTasia NA ([facility]) Unknown [address] [facility], [facility] [address] 07/15/2020 12:00:00 AM EDT eCW1 ([facility]) Jayleen Wynne Janay, BATHHOUSE KEEPER: [address], [place] [address], Ph. Attender: Jayleen Gustafson [facility] 07/15/2020 12:00:00 AM EDT ATHE NA ([facility]) Outpatient Attender: MARGARITA BEATTY 07/09/2020 01:59:00 PM E [facility] Outpatient Attender: NIA CANTU NP 06/27[facility]2020 [facility] KEYSHAWN gillette 06/25/2020 08:20:00 AM EDT MEDENT ([facility]) Outpatient Attender: MARGARITA BEATTY 06/24/2020 02:00:00 PM E [facility] Unknown [address] [facility] [place] [address] 06/11/2020 12:00:00 AM EDT eCW1 ([facility]) Unknown [address] [facility] [place] [address] 06/11/2020 12:00:00 AM EDT eCW1 ([facility]) Inpatient Att[facility]: [facility]ueva [facility] Attender: [id number] MEDENT_23Attender: Mitchell Quinones DOAdmitter: [id number] MEDENT_23Referrer: Lexis Finch [facility] EMERGENCY ROOM-2N 02/11/2020 11:24:00 PM EDT - 02/12/2020 12:48:00 PM [facility] Patient discharged. Outpatient Attender: MARSHA ENGLAND ([place]) MDReferrer: Farooq Finch [facility] 12/20/2019 03:18:00 PM EDT - 12/20/2019 03:18:00 PM [facility] Emergency Attender: KEERTHI ROSS PAReferrer: Lexis Finch [facility] 11/06/2019 02:12:00 PM EST - 11/06/2019 05:04:00 PM [facility] pital Patient discharged. Outpatient Attender: ENID GOMEZ PAReferrer: Lexis wallace [facility] 11/02/2019 09:00:00 AM [facility] Emergency Attender: ENID GOMEZ PAReferrer: Farooq Finch [facility] EMERGENCY ROOM-ER 11/01/2019 09:28:00 PM EST - 11/01/2019 11:16:00 PM [facility] Patient discharged. Emergency Attender: CIERA HU PAReferrer : Lexis Finch [facility] EMERGENCY ROOM-ER 09/22/2019 02:29:00 PM EST - 09/22/2019 05:19:00 PM [facility] Patient discharged. Emergency Attender: LYLA DANIELeferrer: Jet Finch [facility] EMERGENCY ROOM-ER 05/17/2019 05:32:00 PM EDT - 05/17/2019 09:45:00 PM [facility] Patient discharged. Emergency Attender: PERLA TOUREReferrer: Stacia Ficnh [facility] EMERGENCY ROOM-ER 04/18/2019 06:40:00 AM EDT - 04/18/2019 09:30:00 AM [facility] Inpatient Attender: Bere Jacobsen MDAdmitter: Bere Jacobsen MD EMERGENCY ROOM-2N 03/08/2018 04:02:00 PM EDT - 03/09/2018 02:03:00 PM [facility] Emergency Attender: ENID HSU 06:40:00 PM EDT - 06/01/2016 08:24:00 PM [facility] Emergency Attender: CIERA HSU EMERGENCY ROOM- ER 03/28/2012 01:51:00 PM EDT - 03/28/2012 06:24:00 PM [facility] Immunizations Vaccine Date Status Description Data Source(s) Pfizer #2 dose COVID-19 (given elsewhere) SARSCOV2 VAC 30MCG/0.3ML IM 12/14/2020 06:54:00 AM EDT completed eCW1 (Counts include [facility] beds at the [facility]) COVID-19 VACCINE Pfizer 12/14/2020 12:00:00 AM EDT completed [facility] Vaccine Series Complete: YESThis Data wa s Submitted to [facility] Via [employer]. Pfizer #1 dose COVID-19 (given elsewhere) SARSCOV2 VAC 30MCG/0.3ML IM 11/23/2020 06:54:00 AM EST completed eCW1 (Counts include 234 beds at the [facility]) COVID-19 VACCINE Pfizer 11/23/2020 12:00:00 AM EST completed [facility] Vaccine Series Complete: NOThis Data was Submitted to [facility] [employer]. Medications Medication Brand Name Start Date Product Form Dose Route Admi nistrative Instructions Pharmacy Instructions Status Indications Reaction Description Data Source(s) Zofran ODT 4 MG UNK 08/05/2021 12:00:00 AM EST 1.0 {tablet_on_the_tongue_and_allow_to_dissolve} active Zofran ODT 4 MG eCW1 ([facility]) NITROFURANTOIN, MACROCRYSTALS 25 MG / Ni trofurantoin, Monohydrate 75 MG Oral Capsule [Macrobid] Macrobid 100 MG Macrobid 100 MG 08/05/2021 12:00:00 AM EST active Macrobid 100 MG eCW1 ([facility]) 1,250 mcg (50,000 unit) 07/23/2021 12:00:00 AM EDT capsule 8 TAKE ONE CAPSULE BY MOUTH TWICE A WEEK TAKE ONE CAPSULE BY MOUTH TWICE A WEEK SOLD: 07/29/2021 [facility] 5 mg 07/23/2021 12:00:00 AM EDT tablet 30 TAKE ONE TABLET BY MOUTH EVERY DAY TAKE ONE TABLET BY MOUTH EVERY DAY SOLD: 07/29/2021 [facility] 150 mg 07/21/2021 12:00:00 AM EDT tablet 15 TAKE ONE TABLET BY MOUTH AT BEDTIME TAKE ONE TABLET BY MOUTH AT BEDTIME SOLD: 07/21/2021 [facility] 150 mg 07/11/2021 12:00:00 AM EDT capsule 30 TAKE ONE CAPSULE BY MOUTH EVERY MORNING TAKE ONE CAPSULE BY MOUTH EVERY MORNING SOLD: 07/12/2021 [facility] 150 mg 07/02/2021 12:00:00 AM EDT tablet 15 TAKE ONE TABLET BY MOUTH AT BEDTIME TAKE ONE TABLET BY MOUTH AT BEDTIME SOLD: 07/02/2021 [facility] 5 mg 06/27/2021 12:00:00 AM EDT tablet 30 TAKE ONE TABLET BY MOUTH EVERY DAY TAKE ONE TABLET BY MOUTH EVERY DAY SOLD: 07/01/2021 [facility] 25 mcg 06/25/2021 12:00:00 AM EDT tablet 90 TAKE ONE TABLET BY MOUTH EVERY MORNING ON AN EMPTY STOMACH TAKE ONE TABLET BY MOUTH EVERY MORNING O N AN EMPTY STOMACH SOLD: 06/27/2021 [facility] 40 mg 06/24/2021 12:00:00 AM EDT capsule,delayed release (DR/EC) 60 TAKE ONE CAPSULE BY MOUTH TWICE A DAY TAKE ONE CAPSULE BY MOUTH TWICE A DAY SOLD: 06/27/2021 [facility] 31 gauge x 3/16" 06/19/2021 12:00:00 AM EDT needle 100 USE DIRECTED DAILY USE DIRECTED DAILY SOLD: 06/21/2021 [facility] EPINEPHrine 0.3 MG/0.3ML EPINEPHrine 0.3 MG/0.3ML 05/28/2021 12:00: 00 AM EDT active EPINEPHrine 0.3 MG/0.3ML eCW1 ([facility]) EPINEPHrine 0.3 MG/0.3ML EPINEPHrine 0.3 MG/0.3ML 05/28/2021 12:00: 00 AM EDT active EPINEPHrine 0.3 MG/0.3ML eCW1 ([facility]) [id number] 0.3 ML Epinephrine 1 MG/ML Auto-Injector EPINEPHRI [place] 05/28/2021 12:00:00 AM EDT auto-injector [address] NEEDED FOR BEE STING; CALL 911 AFTER ADMINISTRATION DIRECTED INJECT NEEDED FOR BEE STI NG; CALL 911 AFTER ADMINISTRATION SOLD: 06/21/2021 [facility] EPINEPHrine 0.3 MG/0.3ML EPINEPHrine 0.3 MG/0.3ML 05/28/2021 12:00: 00 AM EDT active EPINEPHrine 0.3 MG/0.3ML eCW1 ([facility]) 60 mg 05/23/2021 12:00:00 AM EDT capsule,delayed release (DR/EC) 30 TAKE ONE CAPSULE BY MOUTH EVERY DAY TAKE ONE CAPSULE BY MOUTH EVERY DAY SOLD: 07/29/2021 [facility] 60 mg 05/23/2021 12:00:00 AM EDT capsule,delayed release (DR/EC) 30 TAKE ONE CAPSULE BY MOUTH EVERY DAY TAKE ONE CAPSULE BY MOUTH EVERY DAY SOLD: 05/27/2021 [facility] 60 mg 05/23/2021 12:00:00 AM EDT capsule,delayed release (DR/EC) 30 TAKE ONE CAPSULE BY MOUTH EVERY DAY TAKE ONE CAPSULE BY MOUTH EVERY DAY SOLD: 06/27/2021 [facility] 30 mg 05/16/2021 12:00:00 AM EDT capsule,delayed release (DR/EC) 30 TAKE ONE CAPSULE BY MOUTH EVERY DAY TAKE ONE CAPSULE BY MOUTH EVERY DAY SOLD: 07/29/2021 [facility] 30 mg 05/16/2021 12:00:00 AM EDT capsule,delayed release (DR/EC) 30 TAKE ONE CAPSULE BY MOUTH EVERY DAY TAKE ONE CAPSULE BY MOUTH EVERY DAY SOLD: 05/27/2021 [facility] 30 mg 05/16/2021 12:00:00 AM EDT capsule,delayed release (DR/EC) 30 TAKE ONE CAPSULE BY MOUTH EVERY DAY TAKE ONE CAPSULE BY MOUTH EVERY DAY SOLD: 06/27/2021 [facility] 1 mg 04/03/2021 12:00:00 AM EDT capsule 30 TAKE ONE CAPSULE BY MOUTH AT BEDTIME TAKE ONE CAPSULE BY MOUTH AT BEDTIME SOLD: 04/04/2021 [facility] 1 mg 04/03/2021 12:00:00 AM EDT capsule 30 TAKE ONE CAPSULE BY MOUTH AT BEDTIME TAKE ONE CAPSULE BY MOUTH AT BEDTIME SOLD: 05/12/2021 [facility] 1 mg 04/03/2021 12:00:00 AM EDT capsule 30 TAKE ONE CAPSULE BY MOUTH AT BEDTIME TAKE ONE CAPSULE BY MOUTH AT BEDTIME SOLD: 06/21/2021 [facility] 1 mg 04/03/2021 12:00:00 AM EDT capsule 30 TAKE ONE CAPSULE BY MOUTH AT BEDTIME TAKE ONE CAPSULE BY MOUTH AT BEDTIME SOLD: 07/29/2021 [facility] 40 mg 03/17/2021 12:00:00 AM EDT capsule,delayed release (DR/EC) 60 TAKE ONE CAPSULE BY MOUTH TWICE A DAY TAKE ONE CAPSULE BY MOUTH TWICE A DAY SOLD: 04/25/2021 [facility] 40 mg 03/17/2021 12:00:00 AM EDT capsule,delayed release (DR/EC) 60 TAKE ONE CAPSULE BY MOUTH TWICE A DAY TAKE ONE CAPSULE BY MOUTH TWICE A DAY SOLD: 05/27/2021 [facility] 40 mg 03/17/2021 12:00:00 AM EDT capsule,delayed release (DR/EC) 60 TAKE ONE CAPSULE BY MOUTH TWICE A DAY TAKE ONE CAPSULE BY MOUTH TWICE A DAY SOLD: 03/24/2021 [facility] 30 mg 02/28/2021 12:00:00 AM EDT capsule,delayed release (DR/EC) 30 TAKE ONE CAPSULE BY MOUTH EVERY DAY TAKE ONE CAPSULE BY MOUTH EVERY DAY SOLD: 03/02/2021 [facility] 30 mg 02/28/2021 12:00:00 AM EDT capsule,delayed release (DR/EC) 30 TAKE ONE CAPSULE BY MOUTH EVERY DAY TAKE ONE CAPSULE BY MOUTH EVERY DAY SOLD: 04/04/2021 [facility] 15 mg 02/25/2021 12:00:00 AM EDT tablet 30 TAKE ONE TABLET BY MOUTH EVERY DAY TAKE ONE TABLET BY MOUTH EVERY DAY SOLD: 04/04/2021 [facility] 15 mg 02/25/2021 12:00:00 AM EDT tablet 30 TAKE ONE TABLET BY MOUTH EVERY DAY TAKE ONE TABLET BY MOUTH EVERY DAY SOLD: 05/12/2021 [facility] 15 mg 02/25/2021 12:00:00 AM EDT tablet 30 TAKE ONE TABLET BY MOUTH EVERY DAY TAKE ONE TABLET BY MOUTH EVERY DAY SOLD: 06/21/2021 [facility] 15 mg 02/25/2021 12:00:00 AM EDT tablet 30 TAKE ONE TABLET BY MOUTH EVERY DAY TAKE ONE TABLET BY MOUTH EVERY DAY SOLD: 03/02/2021 [facility] 15 mg 02/25/2021 12:00:00 AM EDT tablet 30 TAKE ONE TABLET BY MOUTH EVERY DAY TAKE ONE TABLET BY MOUTH EVERY DAY SOLD: 07/29/2021 [facility] 60 mg 02/23/2021 12:00:00 AM EDT capsule,delayed release (DR/EC) 30 TAKE ONE CAPSULE BY MOUTH EVERY DAY TAKE ONE CAPSULE BY MOUTH EVERY DAY SOLD: 04/04/2021 [facility] 40 mg 02/23/2021 12:00:00 AM EDT capsule,delayed release (DR/EC) 60 TAKE ONE CAPSULE BY MOUTH TWICE A DAY 30 MINUTES BEFORE A MEAL TAKE ONE CAPSULE BY MOUTH TWICE A DAY 30 MINUTES BEFORE A MEAL SOLD: 03/02/2021 [facility] 60 mg 02/23/2021 12:00:00 AM EDT capsule,delayed release (DR/EC) 30 TAKE ONE CAPSULE BY MOUTH EVERY DAY TAKE ONE CAPSULE BY MOUTH EVERY DAY SOLD: 03/02/2021 [facility] 60 mg 02/23/2021 12:00:00 AM EDT capsule,delayed release (DR/EC) 30 TAKE ONE CAPSULE BY MOUTH EVERY DAY TAKE ONE CAPSULE BY MOUTH EVERY DAY SOLD: 05/12/2021 [facility] 150 mg 02/20/2021 12:00:00 AM EDT tablet 30 TAKE ONE TABLET BY MOUTH EVERY DAY AT BEDTIME TAKE ONE TABLET BY MOUTH EVERY DAY AT BEDTIME SOLD: 03/24/2021 [facility] Linagliptin 5 MG Oral Tablet [Tradjenta] Tradjenta 5 MG Trad jenta 5 MG 02/20/2021 12:00:00 AM EDT 1.0 {tablet} active Tradjenta 5 MG eCW1 ([facility]) 300 mg 02/20/2021 12:00:00 AM EDT capsule 30 TAKE ONE CAPSULE BY MOUTH AT BEDTIME TAKE ONE CAPSULE BY MOUTH AT BEDTIME SOLD: 02/20/2021 [facility] 5 mg 02/20/2021 12:00:00 AM EDT tablet 30 TAKE ONE TABLET BY MOUTH EVERY DAY TAKE ONE TABLET BY MOUTH EVERY DAY SOLD: 06/27/2021 [facility] 150 mg 02/20/2021 12:00:00 AM EDT tablet 30 TAKE ONE TABLET BY MOUTH EVERY DAY AT BEDTIME TAKE ONE TABLET BY MOUTH EVERY DAY AT BEDTIME SOLD: 04/25/2021 [facility] 150 mg 02/20/2021 12:00:00 AM EDT tablet 30 TAKE ONE TABLET BY MOUTH EVERY DAY AT BEDTIME TAKE ONE TABLET BY MOUTH EVERY DAY AT BEDTIME SOLD: 05/27/2021 [facility] 5 mg 02/20/2021 12:00:00 AM EDT tablet 30 TAKE ONE TABLET BY MOUTH EVERY DAY TAKE ONE TABLET BY MOUTH EVERY DAY SOLD: 02/20/2021 [facility] 300 mg 02/20/2021 12:00:00 AM EDT capsule 30 TAKE ONE CAPSULE BY MOUTH AT BEDTIME TAKE ONE CAPSULE BY MOUTH AT BEDTIME SOLD: 03/24/2021 [facility] 1,250 mcg (50,000 unit) 02/20/2021 12:00:00 AM EDT capsule 8 TAKE ONE CAPSULE BY MOUTH TWICE A WEEK TAKE ONE CAPSULE BY MOUTH TWICE A WEEK SOLD: 06/27/2021 [facility] 300 mg 02/20/2021 12:00:00 AM EDT capsule 30 TAKE ONE CAPSULE BY MOUTH AT BEDTIME TAKE ONE CAPSULE BY MOUTH AT BEDTIME SOLD: 05/27/2021 [facility] Linagliptin 5 MG Oral Tablet [Tradjenta] Tradjenta 5 MG Trad jenta 5 MG 02/20/2021 12:00:00 AM EDT 1.0 {tablet} active Tradjenta 5 MG eCW1 ([facility]) 5 mg 02/20/2021 12:00:00 AM EDT tablet 30 TAKE ONE TABLET BY MOUTH EVERY DAY TAKE ONE TABLET BY MOUTH EVERY DAY SOLD: 04/25/2021 [facility] Linagliptin 5 MG Oral Tablet [Tradjenta] Tradjenta 5 MG Trad jenta 5 MG 02/20/2021 12:00:00 AM EDT 1.0 {tablet} active Tradjenta 5 MG eCW1 ([facility]) 5 mg 02/20/2021 12:00:00 AM EDT tablet 30 TAKE ONE TABLET BY MOUTH EVERY DAY TAKE ONE TABLET BY MOUTH EVERY DAY SOLD: 03/24/2021 [facility] 1,250 mcg (50,000 unit) 02/20/2021 12:00:00 AM EDT capsule 8 TAKE ONE CAPSULE BY MOUTH TWICE A WEEK TAKE ONE CAPSULE BY MOUTH TWICE A WEEK SOLD: 02/20/2021 [facility] 150 mg 02/20/2021 12:00:00 AM EDT tablet 30 TAKE ONE TABLET BY MOUTH EVERY DAY AT BEDTIME TAKE ONE TABLET BY MOUTH EVERY DAY AT BEDTIME SOLD: 02/20/2021 [facility] 5 mg 02/20/2021 12:00:00 AM EDT tablet 30 TAKE ONE TABLET BY MOUTH EVERY DAY TAKE ONE TABLET BY MOUTH EVERY DAY SOLD: 05/27/2021 [facility] Linagliptin 5 MG Oral Tablet [Tradjenta] Tradjenta 5 MG Trad jenta 5 MG 02/20/2021 12:00:00 AM EDT 1.0 {tablet} active Tradjenta 5 MG eCW1 ([facility]) Linagliptin 5 MG Oral Tablet [Tradjenta] Tradjenta 5 MG Trad jenta 5 MG 02/20/2021 12:00:00 AM EDT 1.0 {tablet} active Tradjenta 5 MG eCW1 ([facility]) 1,250 mcg (50,000 unit) 02/20/2021 12:00:00 AM EDT capsule 8 TAKE ONE CAPSULE BY MOUTH TWICE A WEEK TAKE ONE CAPSULE BY MOUTH TWICE A WEEK SOLD: 04/25/2021 [facility] 300 mg 02/20/2021 12:00:00 AM EDT capsule 30 TAKE ONE CAPSULE BY MOUTH AT BEDTIME TAKE ONE CAPSULE BY MOUTH AT BEDTIME SOLD: 04/25/2021 [facility] Linagliptin 5 MG Oral Tablet [Tradjenta] Tradjenta 5 MG Trad jenta 5 MG 02/20/2021 12:00:00 AM EDT 1.0 {tablet} active Tradjenta 5 MG eCW1 ([facility]) 1,250 mcg (50,000 unit) 02/20/2021 12:00:00 AM EDT capsule 8 TAKE ONE CAPSULE BY MOUTH TWICE A WEEK TAKE ONE CAPSULE BY MOUTH TWICE A WEEK SOLD: 03/24/2021 [facility] 1,250 mcg (50,000 unit) 02/20/2021 12:00:00 AM EDT capsule 8 TAKE ONE CAPSULE BY MOUTH TWICE A WEEK TAKE ONE CAPSULE BY MOUTH TWICE A WEEK SOLD: 05/27/2021 [facility] Linagliptin 5 MG Oral Tablet [Tradjenta] Tradjenta 5 MG Trad jenta 5 MG 02/20/2021 12:00:00 AM EDT 1.0 {tablet} active Tradjenta 5 MG eCW1 ([facility]) BLOOD SUGAR DIAGNOSTIC 02/07/2021 12:00:00 AM EDT strip 400 TEST DIRECTED FOUR TIMES A DAY TEST DIRECTED FOUR TIMES A DAY SOLD: 02/09/2021 [facility] OneTouch Verio - OneTouch Verio - 02/06/2021 12:00:00 AM EDT active OneTouch Verio - eCW1 ([facility]) OneTouch Verio - OneTouch Verio - 02/06/2021 12:00:00 AM EDT suspended OneTouch Verio - eCW1 ([facility]) OneTouch Verio - OneTouch Verio - 02/06/2021 12:00:00 AM EDT active OneTouch Verio - eCW1 ([facility]) OneTouch Verio - OneTouch Verio - 02/06/2021 12:00:00 AM EDT active OneTouch Verio - eCW1 ([facility]) OneTouch Verio - OneTouch Verio - 02/06/2021 12:00:00 AM EDT active OneTouch Verio - eCW1 ([facility]) OneTouch Verio - OneTouch Verio - 02/06/2021 12:00:00 AM EDT active OneTouch Verio - eCW1 ([facility]) OneTouch Verio - OneTouch Verio - 02/06/2021 12:00:00 AM EDT active OneTouch Verio - eCW1 ([facility]) OneTouch Verio - OneTouch Verio - 02/06/2021 12:00:00 AM EDT active OneTouch Verio - eCW1 ([facility]) OneTouch Verio - OneTouch Verio - 02/06/2021 12:00:00 AM EDT active OneTouch Verio - eCW1 ([facility]) OneTouch Verio - OneTouch Verio - 02/06/2021 12:00:00 AM EDT active OneTouch Verio - eCW1 ([facility]) 3 ML Insulin Glargine 100 UNT/ML Pen Injector [Basagla r] 100 unit/mL (3 mL) INSULIN GLARGINE,[email or web address] 02/04/2021 12:00:00 AM EDT insulin pen 15 INJECT 40 UNITS UNDER THE SKIN ONCE DAILY INJECT 40 UNITS UNDER THE SKIN ONCE DAILY SOLD: 02/09/2021 [facility] 25 mcg 01/08/2021 12:00:00 AM EDT tablet 30 TAKE ONE TABLET BY MOUTH EVERY MORNING ON AN EMPTY STOMACH TAKE ONE TABLET BY MOUTH EVERY MORNING O N AN EMPTY STOMACH SOLD: 01/29/2021 [facility] 60 mg 01/06/2021 12:00:00 AM EDT capsule,delayed release (DR/EC) 30 TAKE ONE CAPSULE BY MOUTH EVERY DAY TAKE ONE CAPSULE BY MOUTH EVERY DAY SOLD: 01/06/2021 [facility] 60 mg 01/06/2021 12:00:00 AM EDT capsule,delayed release (DR/EC) 30 TAKE ONE CAPSULE BY MOUTH EVERY DAY TAKE ONE CAPSULE BY MOUTH EVERY DAY SOLD: 02/09/2021 [facility] 15 mg 12/23/2020 12:00:00 AM EDT tablet 30 TAKE ONE TABLET BY MOUTH EVERY DAY TAKE ONE TABLET BY MOUTH EVERY DAY SOLD: 12/26/2020 [facility] 15 mg 12/23/2020 12:00:00 AM EDT tablet 30 TAKE ONE TABLET BY MOUTH EVERY DAY TAKE ONE TABLET BY MOUTH EVERY DAY SOLD: 01/29/2021 [facility] 100 unit/mL (3 mL) 12/09/2020 12:00:00 AM EDT insulin pen 15 INJECT 40 UNITS SUBCUTANEOUSLY DAILY INJECT 40 UNITS SUBCUTANEOUSLY DAILY SOLD: 12/09/2020 [facility] 3 ML Insulin Glargine 100 UNT/ML Pen Injector [Basagla r] 100 unit/mL (3 mL) INSULIN GLARGINE,HUM.[email or web address] 12/09/2020 12:00:00 AM EDT insulin pen 15 INJECT 40 UNITS SUBCUTANEOUSLY DAILY INJECT 40 UNITS SUBCUTANEOUSLY DAILY SOLD: 01/06/2021 [facility] 50 mg 11/22/2020 12:00:00 AM EST tablet 60 TAKE ONE TABLET BY MOUTH TWICE A DAY TAKE ONE TABLET BY MOUTH TWICE A DAY SOLD: 12/09/2020 [facility] 50 mg 11/22/2020 12:00:00 AM EST tablet 60 TAKE ONE TABLET BY MOUTH TWICE A DAY TAKE ONE TABLET BY MOUTH TWICE A DAY SOLD: 01/06/2021 [facility] 300 mg 11/08/2020 12:00:00 AM EST capsule 30 TAKE ONE CAPSULE BY MOUTH AT BEDTIME TAKE ONE CAPSULE BY MOUTH AT BEDTIME SOLD: 07/09/2021 [facility] 300 mg 11/08/2020 12:00:00 AM EST capsule 30 TAKE ONE CAPSULE BY MOUTH AT BEDTIME TAKE ONE CAPSULE BY MOUTH AT BEDTIME SOLD: 01/29/2021 [facility] 1 mg 11/08/2020 12:00:00 AM EST capsule 30 TAKE ONE CAPSULE BY MOUTH AT BEDTIME TAKE ONE CAPSULE BY MOUTH AT BEDTIME SOLD: 11/21/2020 [facility] 1 mg 11/08/2020 12:00:00 AM EST capsule 30 TAKE ONE CAPSULE BY MOUTH AT BEDTIME TAKE ONE CAPSULE BY MOUTH AT BEDTIME SOLD: 01/29/2021 [facility] 300 mg 11/08/2020 12:00:00 AM EST capsule 30 TAKE ONE CAPSULE BY MOUTH AT BEDTIME TAKE ONE CAPSULE BY MOUTH AT BEDTIME SOLD: 11/21/2020 [facility] 1 mg 11/08/2020 12:00:00 AM EST capsule 30 TAKE ONE CAPSULE BY MOUTH AT BEDTIME TAKE ONE CAPSULE BY MOUTH AT BEDTIME SOLD: 03/02/2021 [facility] 300 mg 11/08/2020 12:00:00 AM EST capsule 30 TAKE ONE CAPSULE BY MOUTH AT BEDTIME TAKE ONE CAPSULE BY MOUTH AT BEDTIME SOLD: 12/26/2020 [facility] 1 mg 11/08/2020 12:00:00 AM EST capsule 30 TAKE ONE CAPSULE BY MOUTH AT BEDTIME TAKE ONE CAPSULE BY MOUTH AT BEDTIME SOLD: 12/26/2020 [facility] 40 mg 10/29/2020 12:00:00 AM EST capsule,delayed release (DR/EC) 60 TAKE ONE CAPSULE BY MOUTH TWICE A DAY TAKE ONE CAPSULE BY MOUTH TWICE A DAY SOLD: 01/06/2021 [facility] 40 mg 10/29/2020 12:00:00 AM EST capsule,delayed release (DR/EC) 60 TAKE ONE CAPSULE BY MOUTH TWICE A DAY TAKE ONE CAPSULE BY MOUTH TWICE A DAY SOLD: 12/09/2020 [facility] 40 mg 10/29/2020 12:00:00 AM EST capsule,delayed release (DR/EC) 60 TAKE ONE CAPSULE BY MOUTH TWICE A DAY TAKE ONE CAPSULE BY MOUTH TWICE A DAY SOLD: 11/05/2020 [facility] 40 mg 10/29/2020 12:00:00 AM EST capsule,delayed release (DR/EC) 60 TAKE ONE CAPSULE BY MOUTH TWICE A DAY TAKE ONE CAPSULE BY MOUTH TWICE A DAY SOLD: 02/09/2021 [facility] 25 mcg 10/28/2020 12:00:00 AM EST tablet 30 TAKE ONE TABLET BY MOUTH EVERY MORNING ON AN EMPTY STOMACH TAKE ONE TABLET BY MOUTH EVERY MORNING O N AN EMPTY STOMACH SOLD: 12/09/2020 [facility] 25 mcg 10/28/2020 12:00:00 AM EST tablet 30 TAKE ONE TABLET BY MOUTH EVERY MORNING ON AN EMPTY STOMACH TAKE ONE TABLET BY MOUTH EVERY MORNING O N AN EMPTY STOMACH SOLD: 11/05/2020 [facility] 150 mg 10/04/2020 12:00:00 AM EST tablet 30 TAKE ONE TABLET BY MOUTH AT BEDTIME TAKE ONE TABLET BY MOUTH AT BEDTIME SOLD: 11/05/2020 [facility] 150 mg 10/04/2020 12:00:00 AM EST tablet 30 TAKE ONE TABLET BY MOUTH AT BEDTIME TAKE ONE TABLET BY MOUTH AT BEDTIME SOLD: 10/05/2020 [facility] 150 mg 10/04/2020 12:00:00 AM EST tablet 30 TAKE ONE TABLET BY MOUTH AT BEDTIME TAKE ONE TABLET BY MOUTH AT BEDTIME SOLD: 01/06/2021 [facility] 150 mg 10/04/2020 12:00:00 AM EST tablet 30 TAKE ONE TABLET BY MOUTH AT BEDTIME TAKE ONE TABLET BY MOUTH AT BEDTIME SOLD: 12/09/2020 [facility] 50 mg 09/27/2020 12:00:00 AM EST tablet 60 TAKE ONE TABLET BY MOUTH TWICE A DAY TAKE ONE TABLET BY MOUTH TWICE A DAY SOLD: 11/05/2020 [facility] 50 mg 09/27/2020 12:00:00 AM EST tablet 60 TAKE ONE TABLET BY MOUTH TWICE A DAY TAKE ONE TABLET BY MOUTH TWICE A DAY SOLD: 10/01/2020 [facility] 10 mg 09/27/2020 12:00:00 AM EST tablet 60 TAKE ONE TABLET BY MOUTH TWICE A DAY NEEDED TAKE ONE TABLET BY MOUTH TWICE A DAY NEEDED SOLD: 11/05/2020 [facility] 10 mg 09/27/2020 12:00:00 AM EST tablet 60 TAKE ONE TABLET BY MOUTH TWICE A DAY NEEDED TAKE ONE TABLET BY MOUTH TWICE A DAY NEEDED SOLD: 10/01/2020 [facility] 31 gauge x 3/16" 09/25/2020 12:00:00 AM EST needle 100 USE DIRECTED DAILY USE DIRECTED DAILY SOLD: 09/25/2020 [facility] 31 gauge x 3/16" 09/25/2020 12:00:00 AM EST needle 100 USE DIRECTED DAILY USE DIRECTED DAILY SOLD: 12/26/2020 [facility] 31 gauge x 3/16" 09/25/2020 12:00:00 AM EST needle 100 USE DIRECTED DAILY USE DIRECTED DAILY SOLD: 03/24/2021 [facility] 60 mg 09/04/2020 12:00:00 AM EST capsule,delayed release (DR/EC) 30 TAKE ONE CAPSULE BY MOUTH EVERY DAY TAKE ONE CAPSULE BY MOUTH EVERY DAY SOLD: 10/03/2020 [facility] 60 mg 09/04/2020 12:00:00 AM EST capsule,delayed release (DR/EC) 30 TAKE ONE CAPSULE BY MOUTH EVERY DAY TAKE ONE CAPSULE BY MOUTH EVERY DAY SOLD: 12/09/2020 [facility] 60 mg 09/04/2020 12:00:00 AM EST capsule,delayed release (DR/EC) 30 TAKE ONE CAPSULE BY MOUTH EVERY DAY TAKE ONE CAPSULE BY MOUTH EVERY DAY SOLD: 09/04/2020 [facility] 60 mg 09/04/2020 12:00:00 AM EST capsule,delayed release (DR/EC) 30 TAKE ONE CAPSULE BY MOUTH EVERY DAY TAKE ONE CAPSULE BY MOUTH EVERY DAY SOLD: 11/05/2020 [facility] 150 mg 08/31/2020 12:00:00 AM EST tablet 30 TAKE ONE TABLET BY MOUTH AT BEDTIME TAKE ONE TABLET BY MOUTH AT BEDTIME SOLD: 08/31/2020 [facility] 30 mg 08/02/2020 12:00:00 AM EST capsule,delayed release (DR/EC) 30 TAKE ONE CAPSULE BY MOUTH EVERY DAY TAKE ONE CAPSULE BY MOUTH EVERY DAY SOLD: 08/06/2020 [facility] 25 mcg 07/19/2020 12:00:00 AM EDT tablet 30 TAKE ONE TABLET BY MOUTH EVERY MORNING ON AN EMPTY STOMACH TAKE ONE TABLET BY MOUTH EVERY MORNING O N AN EMPTY STOMACH SOLD: 08/31/2020 [facility] 25 mcg 07/19/2020 12:00:00 AM EDT tablet 30 TAKE ONE TABLET BY MOUTH EVERY MORNING ON AN EMPTY STOMACH TAKE ONE TABLET BY MOUTH EVERY MORNING O N AN EMPTY STOMACH SOLD: 10/01/2020 [facility] 5-325 mg 07/19/2020 12:00:00 AM EDT tablet 18 TAKE ONE TABLET BY MOUTH EVERY 4 HOURS NEEDED FOR PAIN MAXIMUM DAILY DOSE = SIX TABLETS TAKE ONE TABLET BY MOUTH EVERY 4 HOURS NEEDED FOR PAIN MAXIMUM DAILY DOSE = SIX TABLETS SOLD: 07/19/2020 [facility] 50 mg 07/16/2020 12:00:00 AM EDT tablet 60 TAKE ONE TABLET BY MOUTH TWO TIMES A DAY TAKE ONE TABLET BY MOUTH TWO TIMES A DAY SOLD: 08/17/2020 [facility] 10 mg 07/16/2020 12:00:00 AM EDT tablet 60 TAKE ONE TABLET BY MOUTH TWO TIMES A DAY NEEDED TAKE ONE TABLET BY MOUTH TWO TIMES A DAY NEEDED EDWIGE [facility] 50 mg 07/16/2020 12:00:00 AM EDT tablet 60 TAKE ONE TABLET BY MOUTH TWO TIMES A DAY TAKE ONE TABLET BY MOUTH TWO TIMES A DAY SOLD: 07/18/2020 [facility] 10 mg 07/16/2020 12:00:00 AM EDT tablet 60 TAKE ONE TABLET BY MOUTH TWO TIMES A DAY NEEDED TAKE ONE TABLET BY MOUTH TWO TIMES A DAY NEEDED EDWIGE [facility] 1 mg 06/28/2020 12:00:00 AM EDT capsule 30 TAKE ONE CAPSULE BY MOUTH AT BEDTIME TAKE ONE CAPSULE BY MOUTH AT BEDTIME SOLD: 07/02/2020 [facility] 30 mg 06/28/2020 12:00:00 AM EDT capsule,delayed release (DR/EC) 30 TAKE ONE CAPSULE BY MOUTH EVERY DAY TAKE ONE CAPSULE BY MOUTH EVERY DAY SOLD: 07/02/2020 [facility] 1 mg 06/28/2020 12:00:00 AM EDT capsule 30 TAKE ONE CAPSULE BY MOUTH AT BEDTIME TAKE ONE CAPSULE BY MOUTH AT BEDTIME SOLD: 10/01/2020 [facility] 1 mg 06/28/2020 12:00:00 AM EDT capsule 30 TAKE ONE CAPSULE BY MOUTH AT BEDTIME TAKE ONE CAPSULE BY MOUTH AT BEDTIME SOLD: 08/31/2020 [facility] 1 mg 06/28/2020 12:00:00 AM EDT capsule 30 TAKE ONE CAPSULE BY MOUTH AT BEDTIME TAKE ONE CAPSULE BY MOUTH AT BEDTIME SOLD: 07/31/2020 [facility] duloxetine 60 MG Delayed Release Oral Capsule [Cymbalt a] Cymbalta 60 MG Cymbalta 60 MG 06/27/2020 12:00:00 AM EDT 1.0 {capsule} acti ve Cymbalta 60 MG eCW1 ([facility]) duloxetine 60 MG Delayed Release Oral Capsule [Cymbalt a] Cymbalta 60 MG Cymbalta 60 MG 06/27/2020 12:00:00 AM EDT 1.0 {capsule} acti ve Cymbalta 60 MG eCW1 ([facility]) 25 mcg 05/22/2020 12:00:00 AM EDT tablet 30 TAKE ONE TABLET BY MOUTH EVERY MORNING ON AN EMPTY STOMACH TAKE ONE TABLET BY MOUTH EVERY MORNING O N AN EMPTY STOMACH SOLD: 06/22/2020 [facility] 40 mg 05/20/2020 12:00:00 AM EDT capsule,delayed release (DR/EC) 60 TAKE ONE CAPSULE BY MOUTH TWICE A DAY TAKE ONE CAPSULE BY MOUTH TWICE A DAY SOLD: 08/31/2020 [facility] 40 mg 05/20/2020 12:00:00 AM EDT capsule,delayed release (DR/EC) 60 TAKE ONE CAPSULE BY MOUTH TWICE A DAY TAKE ONE CAPSULE BY MOUTH TWICE A DAY SOLD: 06/22/2020 [facility] 40 mg 05/20/2020 12:00:00 AM EDT capsule,delayed release (DR/EC) 60 TAKE ONE CAPSULE BY MOUTH TWICE A DAY TAKE ONE CAPSULE BY MOUTH TWICE A DAY SOLD: 10/01/2020 [facility] 1 gram 04/09/2020 12:00:00 AM EDT tablet 120 TAKE ONE TABLET BY MOUTH FOUR TIMES A DAY, NEEDED TAKE ONE TABLET BY MOUTH FOUR TIMES A DAY, NEEDED SOLD: 06/22/2020 [facility] 150 mg 03/14/2020 12:00:00 AM EDT tablet 30 TAKE ONE TABLET BY MOUTH AT BEDTIME TAKE ONE TABLET BY MOUTH AT BEDTIME SOLD: 06/22/2020 [facility] 5 mg 02/16/2020 12:00:00 AM EDT tablet 30 TAKE ONE TABLET BY MOUTH EVERY DAY TAKE ONE TABLET BY MOUTH EVERY DAY SOLD: 06/22/2020 [facility] 300 mg 02/16/2020 12:00:00 AM EDT capsule 30 TAKE ONE CAPSULE BY MOUTH AT BEDTIME TAKE ONE CAPSULE BY MOUTH AT BEDTIME SOLD: 06/22/2020 [facility] Escitalopram 20 MG Oral Tablet ESCITALOPRAM OXALATE 02/16/2020 1 2:00:00 AM EDT tablet 30 TAKE ONE TABLET BY MOUTH EVERY D AY TAKE ONE TABLET BY MOUTH EVERY DAY SOLD: 06/22/2020 [facility] 100 unit/mL (3 mL) 02/14/2020 12:00:00 AM EDT insulin pen 15 INJECT 40 UNITS UNDER THE SKIN DAILY INJECT 40 UNITS UNDER THE SKIN DAILY SOLD: 09/04/2020 [facility] 100 unit/mL (3 mL) 02/14/2020 12:00:00 AM EDT insulin pen 15 INJECT 40 UNITS UNDER THE SKIN DAILY INJECT 40 UNITS UNDER THE SKIN DAILY SOLD: 07/31/2020 [facility] 100 unit/mL (3 mL) 02/14/2020 12:00:00 AM EDT insulin pen 15 INJECT 40 UNITS UNDER THE SKIN DAILY INJECT 40 UNITS UNDER THE SKIN DAILY SOLD: 06/22/2020 [facility] 100 unit/mL (3 mL) 02/14/2020 12:00:00 AM EDT insulin pen 15 INJECT 40 UNITS UNDER THE SKIN DAILY INJECT 40 UNITS UNDER THE SKIN DAILY SOLD: 11/05/2020 [facility] 300 mg 01/30/2020 12:00:00 AM EDT capsule 30 TAKE ONE CAPSULE BY MOUTH AT BEDTIME TAKE ONE CAPSULE BY MOUTH AT BEDTIME SOLD: 09/03/2020 [facility] BLOOD SUGAR DIAGNOSTIC 12/13/2019 12:00:00 AM EDT strip 400 USE DIRECTED FOUR TIMES A DAY USE DIRECTED FOUR TIMES A DAY SOLD: 11/05/2020 [facility] BLOOD SUGAR DIAGNOSTIC 12/13/2019 12:00:00 AM EDT strip 400 USE DIRECTED FOUR TIMES A DAY USE DIRECTED FOUR TIMES A DAY SOLD: 07/18/2020 [facility] 15 mg 12/03/2019 12:00:00 AM EDT tablet 90 TAKE ONE TABLET BY MOUTH EVERY DAY TAKE ONE TABLET BY MOUTH EVERY DAY SOLD: 06/22/2020 [facility] 15 mg 12/03/2019 12:00:00 AM EDT tablet 90 TAKE ONE TABLET BY MOUTH EVERY DAY TAKE ONE TABLET BY MOUTH EVERY DAY SOLD: 09/25/2020 [facility] 31 gauge x 3/16" 08/23/2019 12:00:00 AM EST needle 100 USE DIRECTED USE DIRECTED SOLD: 06/22/2020 [facility] cannabidiol (CBD) oral oil Take as needed by oral route. [id number] 07/18/2019 12:00:00 AM EDT completed canna bidiol (CBD) oral oil ASHLEE ([facility]) cannabidiol (CBD) oral oil Take as needed by oral route. [phone] 07/18/2019 12:00:00 AM EDT completed canna bidiol (CBD) oral oil ASHLEE ([facility]) topiramate 25 MG Oral Tablet topiramate 25 mg tablet topiramate 25 mg tablet completed topiramate 25 MG Oral Tablet ASHLEE ([facility]) Vitamin C one by mouth once daily comple shubham Vitamin C ASHLEE ([facility]) celecoxib 200 MG Oral Capsule celecoxib 200 mg capsule celec oxib 200 mg capsule completed celecoxib 200 MG Oral Capsule ASHLEE ([facility]) Cephalexin 500 MG Oral Capsule cephalexi n 500 mg capsule TAKE 1 CAPSULE BY MOUTH THREE TIMES DAILY FOR 7 DAYS cephalexin 500 mg capsule TAKE 1 CAPSULE BY MOUTH THREE TIMES DAILY FOR 7 DAYS completed cephalexin 500 MG Oral Capsule ASHLEE ([facility]) Lantus Solostar U-100 Insulin 35 units every day completed Lantus Solostar U-100 Insulin ASHLEE ([facility]) Prednisone 10 MG Oral Tablet prednisone 10 mg tablet prednisone 10 mg tablet completed prednisone 10 MG Oral Tablet ASHLEE ([facility]) Budesonide 3 MG Delayed Release Oral Cap basilio budesonide DR - ER 3 mg capsule,delayed,extended release budesonide DR - ER 3 mg capsule,delayed,extended release compl eted budesonide 3 MG Delayed Release Oral Capsule ASHLEE ([facility]) celecoxib 200 MG Oral Capsule celecoxib 200 mg capsule celec oxib 200 mg capsule completed celecoxib 200 MG Oral Capsule ASHLEE ([facility]) Steglatro 5 mg tablet [id number] completed ertugliflozin 5 MG Oral Tablet [Steglatro] ASHLEE ([facility]) Fluconazole 150 MG Oral Tablet fluconazole 150 mg tabl et fluconazole 150 mg tablet completed fluconazole 150 MG Oral Tablet ASHLEE ([facility]) Escitalopram 20 MG Oral Tablet escitalop timmy 20 mg tablet TAKE ONE TABLET BY MOUTH EVERY DAY escitalopram 20 mg tablet TAKE ONE TABLET BY MOUTH EVERY DAY completed escitalopram 2 0 MG Oral Tablet ASHLEE ([facility]) Budesonide 3 MG Delayed Release Oral Cap basilio budesonide DR - ER 3 mg capsule,delayed,extended release budesonide DR - ER 3 mg capsule,delayed,extended release compl eted budesonide 3 MG Delayed Release Oral Capsule ASHLEE ([facility]) alpha lipoic acid one by mouth once daily completed alpha lipoic acid ASHLEE ([facility]) Prednisone 10 MG Oral Tablet prednisone 10 mg tablet prednisone 10 mg tablet completed prednisone 10 MG Oral Tablet ASHLEE ([facility]) alpha lipoic acid one by mouth once daily completed alpha lipoic acid ASHLEE ([facility]) Amoxicillin 875 MG / Clavulanate 125 MG Oral Tablet amoxicillin 875 mg-potassium clavulanate 125 mg tablet TAKE ONE TABLET BY MOUTH EVERY 12 HOURS amoxicillin 875 mg-potassium clavulanate 125 mg tablet TAKE ONE TABLET BY MOUTH EVERY 12 HOURS completed amoxici llin 875 MG / clavulanate 125 MG Oral Tablet ASHLEE ([facility]) benzonatate 100 MG Oral Capsule benzonatate 100 mg cap basilio benzonatate 100 mg capsule completed benzonatate 10 0 MG Oral Capsule ASHLEE ([facility]) Amoxicillin 875 MG / Clavulanate 125 MG Oral Tablet amoxicillin 875 mg-potassium clavulanate 125 mg tablet TAKE ONE TABLET BY MOUTH EVERY 12 HOURS amoxicillin 875 mg-potassium clavulanate 125 mg tablet TAKE ONE TABLET BY MOUTH EVERY 12 HOURS completed amoxici llin 875 MG / clavulanate 125 MG Oral Tablet ASHLEE ([facility]) Fluconazole 150 MG Oral Tablet fluconazole 150 mg tabl et fluconazole 150 mg tablet completed fluconazole 150 MG Oral Tablet ASHLEE ([facility]) Vitamin C one by mouth once daily comple shubham Vitamin C ASHLEE ([facility]) Gemfibrozil 600 MG Oral Tablet gemfibrozil 600 mg tabl et gemfibrozil 600 mg tablet completed gemfibrozil 600 MG Oral Tablet ASHLEE ([facility]) Sucralfate 1000 MG Oral Tablet sucralfat e 1 gram tablet TAKE ONE TABLET BY MOUTH FOUR TIMES A DAY NEEDED sucralfate 1 gram tablet TAKE ONE TABLET BY MOUTH FOUR TIMES A DAY NEEDED completed sucralfate 1000 MG Oral Tablet ASHLEE ([facility]) Escitalopram 20 MG Oral Tablet escitalop timmy 20 mg tablet TAKE ONE TABLET BY MOUTH EVERY DAY escitalopram 20 mg tablet TAKE ONE TABLET BY MOUTH EVERY DAY completed escitalopram 2 0 MG Oral Tablet ASHLEE ([facility]) Lantus Solostar U-100 Insulin 35 units every day completed Lantus Solostar U-100 Insulin ASHLEE ([facility]) Steglatro 5 mg tablet [id number] completed ertugliflozin 5 MG Oral Tablet [Steglatro] ASHLEE ([facility]) benzonatate 100 MG Oral Capsule benzonatate 100 mg cap basilio benzonatate 100 mg capsule completed benzonatate 10 0 MG Oral Capsule ASHLEE ([facility]) Gemfibrozil 600 MG Oral Tablet gemfibrozil 600 mg tabl et gemfibrozil 600 mg tablet completed gemfibrozil 600 MG Oral Tablet ASHLEE ([facility]) Acetaminophen 325 MG / Hydrocodone Marsha trate 5 MG Oral Tablet hydrocodone 5 mg- acetaminophen 325 mg tablet TAKE ONE TABLET BY MOUTH EVERY 6 HOURS NEEDED MAXIMUM DAILY DOSE 4 TABLETS hydrocodone 5 mg-acetaminophen 325 mg ta blet TAKE ONE TABLET BY MOUTH EVERY 6 HOURS NEEDED MAXIMUM DAILY DOSE 4 TABLETS completed acetaminop hen 325 MG / hydrocodone bitartrate 5 MG Oral Tablet ASHLEE ([facility]) Sucralfate 1000 MG Oral Tablet sucralfat e 1 gram tablet TAKE ONE TABLET BY MOUTH FOUR TIMES A DAY NEEDED sucralfate 1 gram tablet TAKE ONE TABLET BY MOUTH FOUR TIMES A DAY NEEDED completed sucralfate 1000 MG Oral Tablet ASHLEE ([facility]) topiramate 25 MG Oral Tablet topiramate 25 mg tablet topiramate 25 mg tablet completed topiramate 25 MG Oral Tablet ASHLEE ([facility]) Cephalexin 500 MG Oral Capsule cephalexi n 500 mg capsule TAKE 1 CAPSULE BY MOUTH THREE TIMES DAILY FOR 7 DAYS cephalexin 500 mg capsule TAKE 1 CAPSULE BY MOUTH THREE TIMES DAILY FOR 7 DAYS completed cephalexin 500 MG Oral Capsule ASHLEE ([facility]) Insurance Providers Payer name Policy type / Coverage type Policy ID Covered green party ID Covered green party's relationship to vaz Policy Vaz Plan Information BCBS [facility] 305/805 [id number] SP [id number] [facility] [id number] [facility] HMO/PPO/POS [id number] [facility] BC//BS [facility] Part B [id number] Self [id number] [address] [address] ALEJANDRA UNAVAILABLE 1984 [facility]ABLE [facility]BS [facility] Part B [id number] Self [id number] [employer] BC//BS Commercial [id number] Self [id number] [facility] PPO POS [id number] [employer] BC//BS Commercial [id number] Self [id number] [employer] Commercial [id number] Self [employer] U[employer] Commercial YNC [id number] Self YN C [id number] [employer] Commercial YNC [id number] Self YN C [id number] [facility] PPO POS [id number] [facility] PPO POS [id number] [place] [id number] S [id number] MVP Healthcare F [id number] SELF [id number] MVP Healthcare F [id number] SELF [id number] MVP H [id number] Self [id number] [facility] Comm Plan Medicaid F [id number] SELF [id number] [facility] Comm Plan Medicaid F [id number] SELF [id number] [facility] Comm Plan Medicaid F [id number] SELF [id number] [facility] [id number] 0 [id number] [facility] MEDICAID [id number] S [id number] MEDICAID [place] [id number] Medicaid [facility] S D [id number] SELF [id number] MEDICAID [place] [id number] DF [id number] Medicaid [facility] S D [id number] SELF [id number] MEDICAID [id number] S [id number] [facility] MEDICAID [id number] S [id number] [employer] COMMUNITY PLAN [id number] 0 [id number] [employer] COMMUNITY PLAN [id number] 0 [id number] [facility] MEDICAID [id number] S [id number] ANSI-Medicaid [id number] ANSI-Medicaid [id number] ANSI-Not a Secondary Insurance [id number] ANSI-Medicaid [id number] ANSI-Medicaid [id number] ANSI-Not a Secondary Insurance [id number] ANSI-Not a Secondary Insurance [id number] ANSI-Medicaid [id number] ANSI-Medicaid [id number] ANSI-Not a Secondary Insurance [id number] ANSI-Not a Secondary Insurance [id number] 515ffda [id number] ANSI-Medicaid [id number] ANSI-Not a Secondary Insurance [id number] ANSI-Medicaid [id number] P HEALTHCARE [id number] S [id number] ANSI-Medicaid [id number] ANSI-Not a Secondary Insurance [id number] ANSI-Medicaid [id number] ANSI-Not a Secondary Insurance [id number] ANSI-Not a Secondary Insurance [id number] ANSI-Medicaid [id number] [facility] [id number] Self [id number] ANSI-Medicaid [id number] ANSI-Not a Secondary Insurance [id number] ANSI-Medicaid [id number] ANSI-Not a Secondary Insurance [id number] ANSI-Medicaid [id number] ANSI-Not a Secondary Insurance [id number] ANSI-Not a Secondary Insurance [id number]-[id number] [facility] [id number] S [id number] [facility] [employer] [id number] S [id number] [facility] [id number] 82 [id number] ANSI-Not a Secondary Insurance [id number] ANSI-Not a Secondary Insurance [id number] [id number] [facility] [id number] S [id number] ANSI-Not a Secondary Insurance [id number] [facility] [id number] S [id number] ANSI-Not a Secondary Insurance [id number] ANSI-Not a Secondary Insurance [id number] ANSI-Not a Secondary Insurance [id number] [facility] [id number] SP [id number] ANSI-Not a Secondary Insurance [id number] ANSI-Not a Secondary Insurance [id number] [place] PPO 302/307 [id number] SP [id number] [place] PPO 302/307 [id number] SP [id number] [place] 306/806 [id number] SP [id number] SELF PAY ONLY UNAVAILABLE SP UNAV AILABLE [place] PPO 302/307 [id number] SP [id number] [place] PPO 302/307 [id number] SP [id number] [facility] [id number] SP [id number] [facility] [id number] [facility] [id number] [place] 305/805 [id number] SP [id number] [place] 305/805 [id number] SP [id number] HMO BLUE [id number] SP [id number] HMO BLUE [id number] SP [id number] MVP (or) Commercial [id number] Self [id number] ANSI-Not a Secondary Insurance [id number] ANSI-Not a Secondary Insurance [id number] ANSI-Not a Secondary Insurance [id number] [facility] O [id number] S [id number] ANSI-Not a Secondary Insurance [id number] ANSI-Not a Secondary Insurance [id number] ANSI-Not a Secondary Insurance [id number]-[id number] [place] PPO 302/307 [id number] SP [id number] ANSI-Not a Secondary Insurance [id number] ANSI-Commercial [id number] ANSI-Medicaid [id number] ANSI-Commercial [id number] ANSI-Commercial [id number] ANSI-Commercial [id number]-[id number] ANSI-Commercial [id number] ANSI-Commercial [id number] [place] [id number] S [id number] [place] [id number] S [id number] BCBS HMO BLUE BC [id number] S [id number] [employer] [facility] Commercial [id number] Self [id number] [employer] Commercial [id number] Self [id number] [employer] BCBS B [id number] S YNC [id number] [employer] BCBS B [id number] S [id number] BS Of [place] [facility] (O) [id number] Self BLUE CROSS BLUE SHIELD-O/P [id number] 18 [id number] [employer] BCBS P [id number] S [id number] [employer] BCBS P UNAVAILABLE [id number] S UNAV AILABLE [employer] BC-BS PPO 306 [id number] SP [id number] [employer] [place] [id number] S [id number] [id number] MEDICAID [id number] S [id number] [employer] [place] [id number] S [id number] [id number] [facility] MEDICAID [id number] S [id number] [facility] [id number] S [id number] BCBS HMO BLUE [id number] S YNC [id number] [place] [id number] S [id number] [id number] [place] [id number] SP [id number] BCBS [place] PPO 302/307 [id number] SP [id number] [facility] COMMUNITY PLAN [facility] [id number] SP [id number] [employer] [place] [id number] S [id number] [facility] COMMUNITY PLAN [facility] [id number] SP [id number] MEDICAID [id number] S [id number] MEDICAID [id number] SP [id number] SELF PAY UNAVAILABLE S UNAVAILA BLE [facility] FB [id number] S [id number] ANSI-Medicaid [id number] ANSI-Not a Secondary Insurance [id number] ANSI-Medicaid [id number] [facility] [employer] STRATEGIES [id number] S [id number] [employer] STRATEGIES [id number] S [id number] ANSI-Medicaid [id number] ANSI-Not a Secondary Insurance [id number] ANSI-Medicaid [id number] ANSI-Medicaid [id number] ANSI-Not a Secondary Insurance [id number] ANSI-Medicaid [id number] ANSI-Medicaid [id number] ANSI-Medicaid [id number] ANSI-Not a Secondary Insurance [id number] ANSI-Not a Secondary Insurance [id number] Problems, Conditions, and Diagnoses Code Display Name Description Problem Type Effective Dates Data Source(s) F33.9 Major depressive disorder, recurrent, un specified MAJOR DEPRESSIVE DISORDER, RECURRENT, UNSPECIFIED Diagnosis 06/30/2021 08:54:00 AM [facility] Z79.4 intermission coordinator (current) use of insulin JAIL (CU RRENT) USE OF INSULIN Diagnosis 06/24/2021 01:11:00 PM [facility] Z79.84 JAIL (CURRENT) USE OF ORAL HYPOGLYC EMIC DRUGS JAIL (CURRENT) USE OF ORAL HYPOGLYCEMIC DRUGS Diagnosis 06/24/2021 01:11:00 PM [facility] Z79.899 Other intermediate (current) drug therapy 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 Diagnosis 06/24[facility]20[facility]11[facility] CONTACT WITH AND (SUSPECTED) EXPOSURE TO COVID-19 CONTACT WITH AND (SUSPECTED) EXPOSURE TO COVID-19 Diagnosis 06/24/2021 01:11:00 PM [facility] F17.210 Nicotine dependence, cigarettes, uncompl icated NICOTINE DEPENDENCE, CIGARETTES, UNCOMPLICATED Diagnosis 06/24/2021 01:11:00 PM [facility] E03.9 Hypothyroidism, unspecified HYPOTHYROIDISM, UNSPECIFIE D Diagnosis 06/24/2021 01:11:00 PM [facility] E11.9 Type 2 diabetes mellitus without complic ations TYPE 2 DIABETES MELLITUS WITHOUT COMPLICATIONS Diagnosis 06/24/2021 01:11:00 [facility] J45.909 Unspecified asthma, uncomplicated UNSPECIFIED THMA, UNCOMPLICATED Diagnosis 06/24/2021 01:11:00 PM [facility] B34.9 Viral infection, unspecified VIRAL INFECTION, UNSPECIF IED Diagnosis 06/24/2021 01:11:00 PM [facility] R05.9 COUGH, UNSPECIFIED COUGH, UNSPECIFIED Diagnosis 01/2021 01:11:00 PM [facility] R07.89 Other chest pain OTHER CHEST PAIN Diagnosis 04/29/2021 05 :54:00 PM [facility] R07.9 Chest pain, unspecified CHEST PAIN, UNSPECIFIED Diagno sis 04/29/2021 05:54:00 PM [facility] M79.7 Fibromyalgia FIBROMYALGIA Diagnosis 04/17/2021 04:40:00 P M [facility] F33.0 Major depressive disorder, recurrent, mi ld MAJOR DEPRESSIVE DISORDER, RECURRENT, MILD Diagnosis 04/17/2021 04:40:00 PM [facility] F41.1 Generalized anxiety disorder GENERALIZED ANXIETY DISOR MAY Diagnosis 04/17/2021 04:40:00 PM [facility] F33.42 Major depressive disorder, recurrent, in full remission MAJOR DEPRESSIVE DISORDER, RECURRENT, IN FULL SERGIO Diagnosis 02/28/2021 11:18:00 AM [facility] G43.009 Migraine without aura, not intractable, without status migrainosus MIGRAINE W/O AURA, NOT INTRACTABLE, W/O STATUS ADI Diagnosis 09:49:00 AM [facility] R05 Cough COUGH Diagnosis 12/11/2020 09:49:00 AM [facility] J06.9 Acute upper respiratory infection, unspe cified ACUTE UPPER RESPIRATORY INFECTION, UNSPECIFIED Diagnosis 12/09/2020 02:00:00 PM [facility] F40.01 Agoraphobia with panic disorder AGORAPHOBIA WITH PANIC DISORDER Diagnosis 11/27/2020 04:40:00 PM [facility] Z95.5 Presence of coronary angioplasty implant and graft 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 Diagnosis 10/30/2020 02:15:00 PM [facility] 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 Diagnosis 10/30/2020 02:15:00 PM [facility] l R10.12 Left upper quadrant pain LEFT UPPER QUADRANT PAIN Diag nosis 10/30/2020 02:15:00 PM [facility] R10.9 Unspecified abdominal pain UNSPECIFIED ABDOMINAL PAIN Diagnosis 10/30/2020 02:15:00 PM [facility] Y93.89 Activity, other specified ACTIVITY, OTHER SPECIFIED Di agnosis 07/19/2020 05:10:00 PM [facility] Y92.[address] in unspeci fied non-institutional (private) residence as the place of occurrence of the external cause UNSP PLACE IN UNSP NON-INSTITUT (PRIVATE) RESIDENC Diagnosis [facility] Exposure to other specified factors, ini tial encounter EXPOSURE TO OTHER SPECIFIED FACTORS, INITIAL ENCOU Diagnosis 07/19/2020 05:10:00 P M [facility] S39.012A Strain of muscle, fascia and tendon of l ower back, initial encounter STRAIN OF MUSCLE, FASCIA AND TENDON OF LOWER BACK, Diagnosis 05:10:00 PM [facility] M54.5 Low back pain LOW BACK PAIN Diagnosis 07/19/2020 05:10:00 PM [facility] M79.7 [id number] Fibromyalgia Problem 07/25/2020 12:00:00 AM EST eCW1 ([facility]) Surgeries/Procedures Procedure Description Date Indications Data Source(s) OFFICE OUTPATIENT VISIT 15 MINUTES 07/27/2021 12:00:00 AM EDT [facility] ([facility], [facility]) OFFICE OUTPATIENT VISIT 25 MINUTES 02/06/2021 12:00:00 AM EDT [facility] ([facility], [facility]) Results ID Date Data Source [id number] 07/27/2021 12:00:00 AM EDT [facility] Name Value Range Interpretation Code Description Data Anastasiya rce(s) Supporting Document(s) SARS-CoV2 Rapid Antigen Negative [facility] This lab was ordered by [facility] and reported by [facility]. ID Date Data Source [id number] 09/02/2020 12:00:00 AM EST [facility] Name Value Range Interpretation Code Description Data Anastasiya rce(s) Supporting Document(s) SARS coronavirus 2 Ag [facility] This lab was ordered by [facility] and reported by [facility]. ID Date Data Source [id number] 06/25/2021 11:21:00 AM EDT [facility] Patient: ALEJANDRA POLK [facility].VisitID: [id number] [place] [address] [phone], FRegistration Date/Time: 06/24/2021 12:27 Weight:83.4 kg (S). Height/Length:62 inches (S). BMI:33.7 PAST HISTORYProblems:Asthma [Chronic].Herniated Disk [Chronic].Ovarian Cyst [Chronic].Myalgias [Chronic].Irregular heart beat [Chronic].Diabetes Mellitus [Chronic].Crohn's Disease [Chronic].Cervical Radiculopathy [Chronic].Neck Pain [Chronic].Depression [Chronic]. Additional Surgeries:C section x1.Cardiac ablation.Cardiac Procedures.Hysterectomy.Laparoscopy.Tonsillectomy. Medications:Basaglar KwikPen Subcutaneous, last dose llastnight.Cetirizine HCl Oral (Tablet 10 mg) 1 tablet, last dose last night.Cymbalta Oral / 60mg, daily every PM, last dose last night (depression/fiber myalgia).Bracey Carbonate ER Oral (Tablet Extended Release 300 mg) 1 tablet, daily, last dose last night .Omeprazole Oral (Capsule Delayed Release 40 mg) 1 capsule, daily as needed, last dose last night .Steglatro Oral (Tablet 15 mg) 1 tablet, daily, last dose last night .Topamax Oral (Tablet 25 mg) 1 tablet, daily every PM, last dose last night.TraZODone HCl Oral 150 mg, daily every PM, last dose last night.ARIPiprazole Oral (Tablet 5 mg) 1 tablet, daily at bedtime, last dose last night. Allergies:Macrolides and Ketolides.(hives, rash)Penicillins.(hives, rash)PredniSONE.(confusion) (Tachycardia)Shellfish-derived Products.(angioedema). FAMILY HISTORYNo significant family medical history. (Electronically signed by Ludwin Ramírez PA-C 06/25/2021 11:10) Name Value Range Interpretation Code Description Data Anastasiya rce(s) Supporting Document(s) ID Date Data Source [id number] 06/24/2021 02:03:00 PM [id number] Name Value Range Interpretation Code Description Data Anastasiya rce(s) Supporting Document(s) TROPONIN-HIGH SENSITIVITY < 4.0 ng/L 0-60.4 [facility] ID Date Data Source [id number] 06/24/2021 12:34:00 PM EDT [facility] Name Value Range Interpretation Code Description Data Anastasiya rce(s) Supporting Document(s) COVID-19 NEGATIVE [facility] This lab was ordered by [facility] and reported by [facility]. ID Date Data Source [id number] 06/24/2021 01:06:00 PM EDT [facility] [id number] Name Value Range Interpretation Code Description Data Anastasiya rce(s) Supporting Document(s) COVID-19 NEGATIVE NEGATIVE [facility] Negative results should be treated as pr esumptive and, ifinconsistent with clinical signs and symptoms or necessaryfor patient management, should be tested with differentauthorized or cleared molecular tests.Negative results do not preclude SARS-CoV-2 infection andshould not be used as the sole basis for patient managementdecisions.This is a rapid molecular isothermal nucleic acidamplification technology (NAAT) in vitro diagnostic testutilizing a loop mediated isothermal amplification (LAMP)test with nicking endonuclease amplification reaction(NEAR) intended for the qualitative detection of nucleica jesus from the SARS-CoV-2 viral RNA in direct nasal,nasopharyngeal or throat swabs from individuals who aresuspected of COVID-19.Results are for the indentification of SARS-CoV-2 RNA. BiaHBAZ-IfI-3 RNA is generally detectable in respiratorysamples during the actue phase of infection. ID Date Data Source [id number] 05/01/2021 08:20:00 AM EDT [facility] AP CHEST DATE OF EXAMINATION: 04/29/2021 17:55 EDT CHEST 1 VIEW INDICATION: Chest pain COMPARISON: 02/11/2020 TECHNIQUE: A single AP film of the chest was obtained. FINDINGS: The chest wall and mediastinal structures are unremarkable. There isno pleural disease. The lungs are clear. IMPRESSION: No acute pulmonary disease Electronically signed in PS360 by: Goldy Patel M.D. 04/29/2021 19:43 EDT Name Value Range Interpretation Code Description Data Anastasiya rce(s) Supporting Document(s) ID Date Data Source [id number] 04/30/2021 07:15:00 AM [facility] Patient: ALEJANDRA POLK R eport - [facility].VisitID: [id number] [place] [address] [phone], FRegistration Date/Time: 04/29/2021 17:34 Weight:81.6 kg (S). Height/Length:62 inches (S). BMI:32.9 FAMILY HISTORYNo significant family medical history. (Electronically signed by Enid Gomez P.A. 04/30/2021 07:04) Weight:81.6 kg (S). Height/Length:62 inches (S). BMI:32.9 PAST HISTORYProblems:Irregular heart beat [Chronic].Asthma [Chronic].Neck Pain [Chronic].Myalgias [Chronic].Crohn's Disease [Chronic].Diabetes Mellitus [Chronic].Sporatic ventricular tachacardia [Chronic].Ovarian Cyst [Chronic].Herniated Disk [Chronic].Depression [Chronic].Cervical Radiculopathy [Chronic]. Additional Surgeries:C section x1.Cardiac ablation.Cardiac Procedures.Hysterectomy.Laparoscopy. Medications:Basaglar KwikPen Subcutaneous.ARIPiprazole Oral (Tablet 5 mg) 1 tablet, daily, last dose last night.Cetirizine HCl Oral (Tablet 10 mg) 1 tablet, last dose last night.Cymbalta Oral / 60mg, daily every PM, last dose last night (depression/fiber myalgia).Bracey Carbonate ER Oral (Tablet Extended Release 3 00 mg) 1 tablet, daily, last dose last night .Omeprazole Oral (Capsule Delayed Release 40 mg) 1 capsule, daily as needed, last dose last night .Steglatro Oral (Tablet 15 mg) 1 tablet, daily, last dose last night .Topamax Oral (Tablet 25 mg) 1 tablet, daily every PM, last dose last night.TraZODone HCl Oral 150 mg, daily every PM, last dose last night. Allergies:Macrolides and Ketolides.(hives, rash)Penicillins.(hives, rash)PredniSONE.(confusion) (Tachycardia)Shellfish-derived Products.(angioedema). FAMILY HISTORYNo significant family medical history. (Electronically signed by Ludwin Ramírez PA-C 04/30/2021 01:11) Name Value Range Interpretation Code Description Data Anastasiya rce(s) Supporting Document(s) ID Date Data Source [id number] 04/29/2021 09:10:00 PM EDT [facility] T[facility] [id number] Name Value Range Interpretation Code Description Data Anastasiya rce(s) Supporting Document(s) TROPONIN-HIGH SENSITIVITY < 4.0 ng/L 0-60.4 [facility] ID Date Data Source [id number] 04/29/2021 07:58:00 PM EDT [facility] Name Value Range Interpretation Code Description Data Anastasiya rce(s) Supporting Document(s) COVID-19 NEGATIVE [facility] This lab was ordered by [facility] and reported by [facility]. ID Date Data Source [id number] 04/29/2021 08:18:00 PM EDT [facility] TSYSORDER [id number] Name Value Range Interpretation Code Description Data Anastasiya rce(s) Supporting Document(s) COVID-19 NEGATIVE NEGATIVE [facility] Negative results should be treated as pr esumptive and, ifinconsistent with clinical signs and symptoms or necessaryfor patient management, should be tested with differentauthorized or cleared molecular tests.Negative results do not preclude SARS-CoV-2 infection andshould not be used as the sole basis for patient managementdecisions.This is a rapid molecular isothermal nucleic acidamplification technology (NAAT) in vitro diagnostic testutilizing a loop mediated isothermal amplification (LAMP)test with nicking endonuclease amplification reaction(NEAR) intended for the qualitative detection of nucleica jesus from the SARS-CoV-2 viral RNA in direct nasal,nasopharyngeal or throat swabs from individuals who aresuspected of COVID-19.Results are for the indentification of SARS-CoV-2 RNA. BcgRBQQ-BiU-9 RNA is generally detectable in respiratorysamples during the actue phase of infection. ID Date Data Source [id number] 04/29/2021 06:32:00 PM EDT [facility] TSYSORDER [id number] Name Value Range Interpretation Code Description Data Anastasiya rce(s) Supporting Document(s) TSH 5.797 uIU/mL 0.360-3.740 [facility] ID Date Data Source [id number] 04/29/2021 06:24:00 PM EDT [facility] TSYSORDER [id number] Name Value Range Interpretation Code Description Data Anastasiya rce(s) Supporting Document(s) MAGNESIUM 2.2 mg/dL 1.8-2.4 [facility] ID Date Data Source [id number] 04/29/2021 06:24:00 PM EDT [facility] TSYSORDER [id number] Name Value Range Interpretation Code Description Data Anastasiya rce(s) Supporting Document(s) TROPONIN-HIGH SENSITIVITY < 4.0 ng/L 0-60.4 [facility] ID Date Data Source [id number] 04/29/2021 06:24:00 PM EDT [facility] TSYSORDER [id number] Name Value Range Interpretation Code Description Data Anastasiya rce(s) Supporting Document(s) CREATINE PHOSPHOKINASE 45 U/L 26-192 [facility] ID Date Data Source [id number] 04/29/2021 06:24:00 PM EDT [facility] TSYSORDER [id number] Name Value Range Interpretation Code Description Data Anastasiya rce(s) Supporting Document(s) LIPASE 187 U/L 73-393 [facility] ID Date Data Source [id number] 04/29/2021 06:24:00 PM EDT [facility] TSYSORDER [id number] Name Value Range Interpretation Code Description Data Anastasiya rce(s) Supporting Document(s) GLUCOSE 170 mg/dL 74-106 H [facility] BLOOD UREA NITROGEN 11 mg/dL 7-18 [facility] CREATININE 0.68 mg/dL 0.6-1.0 [facility] SODIUM 136 mmol/L 136-145 [facility] POTASSIUM 3.9 mmol/L 3.5-5.1 [facility] CHLORIDE 101 mmol/L 98-107 [facility] CO2 24 mmol/L 21-32 [facility] CALCIUM 9.2 mg/dL 8.5-10.1 [facility] ANION GAP 11.0 mmol/L 5-12 [facility] GLOMERULAR FILTRATION RATE >90 mL/min [facility] GFR IS CALCULATED IN mL/min/1.73m2 ABIEL L FUNCTION: >90MILDLY DECREASED: 60-89MILDY TO MODERATELY DECREASED: 45-59 MODERATELY TO SEVERELY DECREASED: 30-44SEVERELY DECREASED: 15-29RENAL FAILURE: <15 AST 16 U/L 15-37 [facility] ALT 44 U/L 12-78 [facility] ALKALINE PHOSPHATASE 94 U/L 46-116 [facility] pital TOTAL BILIRUBIN 0.6 mg/dL 0.2-1.0 [facility] TOTAL PROTEIN 7.3 g/dl 6.4-8.2 [facility] ALBUMIN 3.8 gm/dL 3.4-5.0 [facility] ID Date Data Source [id number] 04/29/2021 06:19:00 PM EDT [facility] TSYSORDER [id number] Name Value Range Interpretation Code Description Data Anastasiya rce(s) Supporting Document(s) PARTIAL THROMBOPLASTIN TIME 23.6 SECONDS 21.2-27.3 [facility] ID Date Data Source [id number] 04/29/2021 06:19:00 PM EDT [facility] TSYSORDER [id number] Name Value Range Interpretation Code Description Data Anastasiya rce(s) Supporting Document(s) PROTHROMBIN TIME (PATIENT) 9.2 SECONDS 9.1-11.6 [facility] INR 0.88 0.87-1.06 [facility] ID Date Data Source [id number] 04/29/2021 06:02:00 PM EDT [facility] TSYSORDER [id number] Name Value Range Interpretation Code Description Data Anastasiya rce(s) Supporting Document(s) WHITE BLOOD COUNT 9.6 K/mm3 4.0-10.0 [facility] RED BLOOD COUNT 4.37 M/mm3 4.00-5.50 [facility] HEMOGLOBIN 13.9 gm/dL 12.0-16.0 [facility] HEMATOCRIT 39.4 % 36.0-48.8 [facility] MEAN CELL VOLUME 90.2 fl 80-96 [facility] MEAN CORPUSCULAR HEMOGLOBIN 31.8 pg 27.0-31.0 H [facility] MEAN CORPUSCULAR HGB CONC 35.3 g/dl 32.0-36.0 [facility] RED CELL DISTRIBUTION WIDTH 12.2 % 10.0-14.5 [facility] PLATELET COUNT 322 K/mm3 172-450 [facility] MEAN PLATELET VOLUME 9.7 fl 9.0-13.0 [facility] pital GRAN % 52.4 % 50-80.0 [facility] IG% 0.6 % 0.0-0.2 H [facility] LYMPH % 38.2 % 25.0-50.0 [facility] MONO % 6.7 % 2.0-10.0 [facility] EOS % 1.4 % 0-5.0 [facility] BASO % 0.7 % 0.0-2.0 [facility] GRAN # 5.0 K/mm3 2.0-8.00 [facility] IG# 0.1 K/mm3 0.0-0.2 [facility] LYMPH # 3.7 K/mm3 1.0-5.0 [facility] MONO # 0.6 K/mm3 0.10-1.20 [facility] EOS # 0.1 K/mm3 0.0-0.5 [facility] BASO # 0.1 K/mm3 0.0-0.2 [facility] ID Date Data Source [id number] 02/07/2021 05:24:00 PM EDT [facility] ([facility]) Name Value Range Interpretation Code Description Data Anastasiya rce(s) Supporting Document(s) Thyroid Stimulating Hormone 1.560 uIU/ML 0.358-3.740 [facility] ([facility], [facility]) Free T4 0.74 ng/dL 0.76-1.46 [facility] ([facility], [facility]) ID Date Data Source [id number] 02/07/2021 05:24:00 PM EDT [facility] ([facility]) Name Value Range Interpretation Code Description Data Anastasiya rce(s) Supporting Document(s) Glucose, Fasting 236 mg/dL 70-100 [facility] ([facility]) Blood Urea Nitrogen 16 mg/dL 7-18 [facility] ([facility]) Creatinine For GFR 0.65 mg/dL 0.55-1.30 [facility] ([facility]) Glomerular Filtration Rate Laboratory test result [facility] ([facility], [facility]) <content>Units are mL/min/1.73 m2</content>
<content></content>
<content>Chronic Kidney Disease Staging per NKF:</content>
<content></content>
<content>Stage I & II GFR >=60 Normal to Mildly Decreased</content>
<content>Stage III GFR 30- 59 Moderately Decreased</content>
<content>Stage IV GFR 15-29 Severely Decreased</content>
<content>Stage V GFR <15 Very Little GFR Left</content>
<content>ESRD GFR <15 on [employer]</content>
<content></content> Sodium Level 136 meq/L 136-145 [facility] ([facility], [facility]) Carbon Dioxide Level 25 meq/L 21-32 [facility] ([facility]) Potassium Serum 3.8 meq/L 3.5-5.1 [facility] ([facility], [facility]) Chloride Level 103 meq/L 98-107 [facility] ([facility]) Anion Gap 8 meq/L 8-16 [facility] ([facility], [facility]) Calcium Level 8.5 mg/dL 8.5-10.1 [facility] ([facility], [facility]) Ast/Sgot 13 U/L 7-37 [facility] ([facility]) Alkaline Phosphatase 110 U/L 45-117 [facility] ([facility]) Alt/SGPT 42 U/L 12-78 [facility] ([facility]) Bilirubin,Total 0.4 mg/dL 0.2-1.0 [facility] ([facility]) Albumin 3.7 GM/DL 3.2-5.2 [facility] ([facility]) Albumin/Globulin Ratio 1.1 1.2-2.2 [facility] ([facility]) Total Protein 7.0 GM/DL 6.4-8.2 [facility] ([facility]) ID Date Data Source [id number] 02/07/2021 05:24:00 PM EDT [facility] ([facility], [facility]) Name Value Range Interpretation Code Description Data Anastasiya rce(s) Supporting Document(s) White Blood Count 10.0 10 4.0-10.0 [facility] ([facility], [facility]) Red Blood Count 4.44 10 4.00-5.40 [facility] ([facility], [facility]) Mean Corpuscular Volume 93.7 fl 80.0-96.0 M [facility] ([facility]) Hematocrit 41.6 % 36.0-47.0 [facility] ([facility] Hemoglobin 14.1 g/dL 12.0-15.5 [facility] ([facility] Mean Corpuscular HGB Conc 33.9 g/dL 32.0-36.5 [facility] ([facility], [facility]) Mean Corpuscular Hemoglobin 31.8 pg 27.0-33.0 [facility] ([facility], [facility]) Red Cell Distribution Width 12.2 % 11.5-14.5 [facility] ([facility], [facility]) Platelet Count, Automated 332 10 150-450 [facility] ([facility] Lymph % 34.2 % 24.0-44.0 [facility] ([facility] Neutrophils % 56.1 % 36.0-66.0 [facility] ([facility]) Whitfield % 6.2 % 2.0-8.0 [facility] ([facility]) Baso % 1.0 % 0.0-1.0 [facility] ([facility], [facility]) Eos % 1.9 % 0.0-3.0 [facility] ([facility], [facility]) Nucleated Red Blood Cell % 0.0 % 0-0 [facility] ([facility], [facility]) Neutrophils # 5.6 10 1.5-8.5 [facility] ([facility], [facility]) Immature Granulocyte % 0.6 % 0-3.0 [facility] ([facility], [facility]) Lymph # 3.4 10 1.5-5.0 [facility] ([facility], [facility]) Whitfield # 0.6 10 0.0-0.8 [facility] ([facility], [facility]) Eos # 0.2 10 0.0-0.5 [facility] ([facility], [facility]) Baso # 0.1 10 0.0-0.2 [facility] ([facility], [facility]) ID Date Data Source [id number] 12/11/2020 04:04:00 PM EDT [facility] Patient: ALEJANDRA POLK Regine Gasca R eport - [facility].VisitID: [id number] [place] [address] [phone], FRegistration Date/Time: 12/11/2020 09:09 Weight:80.7 kg (S). Height/Length:63 inches (S). BMI:31.5 PAST HISTORYProblems:Asthma [Chronic].Diabetes Mellitus [Chronic].Herniated Disk [Chronic].Ovarian Cyst [Chronic].Irregular heart beat [Chronic].Neck Pain [Chronic].Depression [Chronic].Crohn's Disease [Chronic].Cervical Radiculopathy [Chronic].Sporatic ventricular tachacardia [Chronic].Myalgias [Chronic].Dehydration.Diabetes Mellitus.Asthma.Back Pain.Chest Pain.Atypical Chest Pain.Heart Disease.Other Disease.Cardiovascular Risk Factors.Abdominal Pain.Lung Disease.Dyspnea.Arrhythmia.Headache [Resolved].Abdominal Pain [Resolved].Influenza [Resolved].Heart Disease [Resolved].Crohn's Disease [Resolved].Atypical Chest Pain [Resolved].Abdominal Pain [Resolved].Dehydration [Resolved].Myofascial Strain [Resolved].Viral Disease [Resolved].Pharyngitis [Resolved].UTI - Urinary Tract Infection [Resolved].Syncope [Resolved].Pulmonary Embolism [RuleOut]. Additional Surgeries:C section x1.Cardiac ablation.Cardiac Procedures.Hysterectomy.Laparoscopy. Medications:ARIPiprazole Oral (Tablet 5 mg) 1 tablet, daily, last dose last night.Cetirizine HCl Oral (Tablet 10 mg) 1 tablet, last dose last night.Cymbalta Oral 30 mg, daily every PM, last dose last night (depression/fiber myalgia).Bracey Carbonate ER Oral (Tablet Extended Release 300 mg) 1 tablet, daily, last dose last night .Omeprazole Oral (Capsule Delayed Release 40 mg) 1 capsule, daily as needed, last dose last night .Steglatro Oral (Tablet 15 mg) 1 tablet, daily, last dose last night .Topamax Oral (Tablet 25 mg) 1 tablet, daily every PM, last dose last night.TraZODone HCl Oral 150 mg, daily every PM, last dose last night. Allergies:Macrolides and Ketolides.(hives, rash)Penicillins.(hives, rash)PredniSONE.(confusion) (Tachycardia)Shellfish-derived Products.(angioedema). FAMILY HISTORYNo significant family medical history. (Electronically signed by Enid Gomez P.A. 12/11/2020 15:01) Name Value Range Interpretation Code Description Data Anastasiya e(s) Supporting Document(s) ID Date Data Source [id number] 12/11/2020 11:08:00 AM EDT [facility] DATE OF EXAMINATION: 12/11/2020 9:41 EDT BRAIN W/O CONTRAST HISTORY: Persistent headache TECHNIQUE: This CT exam was performed using the following dose reduction techniques:automatic exposure control, adjustment of mA and/or kV according to thepatient's size, and use of iterative reconstruction technique. Standard contiguous axial spiral imaging was obtained from the skull basethrough the vertex without contrast administration and with coronalreformatting. FINDINGS: BRAIN: Basilar cisterns and ventricles appear normal. No space occupyinglesions, intracerebral edema, or any signs of mass effects are noted. Base ofthe skull appears normal. IMPRESSION: Unremarkable CT scan of the brain Electronically signed in PS360 by: Shabbir Lamar M.D. 12/11/2020 11:03 EDT Name Value Range Interpretation Code Description Data Anastasiya rce(s) Supporting Document(s) ID Date Data Source [id number] 12/11/2020 10:18:00 AM EDT [facility] T[facility] [id number] Name Value Range Interpretation Code Description Data Anastasiya rce(s) Supporting Document(s) GLUCOSE 274 mg/dL 74-106 H [facility] BLOOD UREA NITROGEN 12 mg/dL 7-18 [facility] CREATININE 0.70 mg/dL 0.6-1.0 [facility] SODIUM 134 mmol/L 136-145 L [facility] POTASSIUM 4.2 mmol/L 3.5-5.1 [facility] CHLORIDE 98 mmol/L 98-107 [facility] CO2 24 mmol/L 21-32 [facility] CALCIUM 9.6 mg/dL 8.5-10.1 [facility] ANION GAP 12.0 mmol/L 5-12 [facility] GLOMERULAR FILTRATION RATE >90 mL/min [facility] GFR IS CALCULATED IN mL/min/1.73m2 ABIEL L FUNCTION: >90MILDLY DECREASED: 60-89MILDY TO MODERATELY DECREASED: 45-59 MODERATELY TO SEVERELY DECREASED: 30-44SEVERELY DECREASED: 15-29RENAL FAILURE: <15 AST 13 U/L 15-37 [facility] ALT 40 U/L 12-78 [facility] ALKALINE PHOSPHATASE 106 U/L 46-116 [facility] pital TOTAL BILIRUBIN 0.7 mg/dL 0.2-1.0 [facility] TOTAL PROTEIN 7.7 g/dl 6.4-8.2 [facility] ALBUMIN 3.7 gm/dL 3.4-5.0 [facility] ID Date Data Source [id number] 12/11/2020 09:57:00 AM EDT [facility] TSYSORDER [id number] Name Value Range Interpretation Code Description Data Anastasiya rce(s) Supporting Document(s) URINE COLOR. YELLOW [facility] URINE APPEARANCE CLEAR [facility] URINE GLUCOSE (UA) 500 mg/dL NEGATIVE H [facility] URINE BILIRUBIN NEGATIVE NEGATIVE [facility] URINE KETONE NEGATIVE mg/dL NEGATIVE [facility] SPECIFIC GRAVITY,URINE 1.020 1.005-1.030 [facility] URINE BLOOD NEGATIVE NEGATIVE [facility] PH,URINE 7.5 5.0-9.0 [facility] URINE PROTEIN NEGATIVE mg/dL NEGATIVE [facility] URINE UROBILINOGEN NORMAL(0.2-1) mg/dL 0-1 R [facility] URINE NITRATE NEGATIVE NEGATIVE [facility] URINE LEUKOCYTE ESTERASE NEGATIVE NEGATIVE [facility] ID Date Data Source [id number] 12/11/2020 09:55:00 AM EDT [facility] TSYSORDER [id number] Name Value Range Interpretation Code Description Data Anastasiya rce(s) Supporting Document(s) WHITE BLOOD COUNT 8.1 K/mm3 4.0-10.0 [facility] RED BLOOD COUNT 4.67 M/mm3 4.00-5.50 [facility] HEMOGLOBIN 14.6 gm/dL 12.0-16.0 [facility] HEMATOCRIT 42.3 % 36.0-48.8 [facility] MEAN CELL VOLUME 90.6 fl 80-96 [facility] MEAN CORPUSCULAR HEMOGLOBIN 31.3 pg 27.0-31.0 H [facility] MEAN CORPUSCULAR HGB CONC 34.5 g/dl 32.0-36.0 [facility] RED CELL DISTRIBUTION WIDTH 12.0 % 10.0-14.5 [facility] PLATELET COUNT 326 K/mm3 172-450 [facility] MEAN PLATELET VOLUME 9.9 fl 9.0-13.0 [facility] pital GRAN % 63.4 % 50-80.0 [facility] IG% 0.5 % 0.0-0.2 H [facility] LYMPH % 28.4 % 25.0-50.0 [facility] MONO % 5.3 % 2.0-10.0 [facility] EOS % 1.8 % 0-5.0 [facility] BASO % 0.6 % 0.0-2.0 [facility] GRAN # 5.1 K/mm3 2.0-8.00 [facility] IG# 0.0 K/mm3 0.0-0.2 [facility] LYMPH # 2.3 K/mm3 1.0-5.0 [facility] MONO # 0.4 K/mm3 0.10-1.20 [facility] EOS # 0.2 K/mm3 0.0-0.5 [facility] BASO # 0.1 K/mm3 0.0-0.2 [facility] ID Date Data Source [id number] 12/11/2020 09:12:00 AM EDT [facility] Name Value Range Interpretation Code Description Data Anastasiya rce(s) Supporting Document(s) COVID-19 NEGATIVE [facility] This lab was ordered by [facility] and reported by [facility] Laboratory. ID Date Data Source [id number] 12/11/2020 09:39:00 AM EDT [facility] TSYSORDER [id number] Name Value Range Interpretation Code Description Data Anastasiya rce(s) Supporting Document(s) COVID-19 NEGATIVE NEGATIVE [facility] Negative results should be treated as pr esumptive and, ifinconsistent with clinical signs and symptoms or necessaryfor patient management, should be tested with differentauthorized or cleared molecular tests.Negative results do not preclude SARS-CoV-2 infection andshould not be used as the sole basis for patient managementdecisions.This is a rapid molecular in vitro diagnostic test utilizingan isothermal nucleic acid amplification technology intendedfor the qualitative detection of nucleic acid from the SARS-CoV-2 viral RNA in direct nasal, nasopharyngeal orthroat swabs from individuals who are suspected of COVID-19.Results are for the indentification of SARS-CoV-2 RNA. PuuNJIH-FvD-3 RNA is generally detectable in respiratorysamples during the actue phase of infection. ID Date Data Source [id number] 12/09/2020 02:30:00 PM EDT [facility] Name Value Range Interpretation Code Description Data Anastasiya rce(s) Supporting Document(s) SARS COV2 TRP Not Detected [facility] This lab was ordered by [facility] and reported by [facility]. ID Date Data Source [id number] 12/09/2020 03:31:00 PM EDT [facility] Name Value Range Interpretation Code Description Data Anastasiya rce(s) Supporting Document(s) Adenovirus Not Detected Detected [facility] Coronavirus 229E [facility] Detected [facility] HKU1 Not Detected Detected Not R [facility] Coronavirus NL63 Not Detected Detected Not R [facility] Coronavirus OC43 Not Detected Detected Not R [facility] Sars Cov 2 Not Detected Detected [facility] Negative results do not preclude SARS-Co V-2 infection andshould not be used as the sole basis for treatment or otherpatient management decisions. Negative SARS-CoV-2 resultsmust be combined with clinical observations, patienthistory, and epidemiological information.The AdonitArray RP2 COVID-19 test is only for use under the Food and Drug Administration's EmergencyUse Authorization. Human Metapneumovirus Not Detected Detected Not [facility] Human Rhinovirus Not Detected Detected Not [facility] Influenza A Not Detected Detected Not [facility] Influenza B Not Detected Detected Not [facility] Parainfluenza Virus 1 Not Detected Detected Not [facility] Parainfluenza Virus 2 Not Detected Detected Not [facility] Parainfluenza Virus 3 Not Detected Detected Not [facility] Parainfluenza Virus 4 Not Detected Detected Not [facility] Respiratory Syncytial Virus Not Detected Detected Not [facility] Bordetella parapertus ([id number]) Not Detected Detected Not [facility] Bordetella pertussis (ptxP) Not Detected Detected Not [facility] Chlamydia pneumoniae Not Detected Detected Not [facility] Mycoplasma pneumoniae Not Detected Detected [facility] The results of the respiratory panel dax uld notbe used as the sole basis for diagnosis, treatmentor other patient management decisions.Negative results in the setting of a respiratoryillness may be due to infection with pathogens that are not detected by this test,or lower respiratorytract infection that may not be detected by a nasopharyngeal swab specimen.Positive results do not rule out co-infection with other organisms: the agent(s) detected by the FilmArrayRP2 may not be the definite cause of disease. Additional Laboratory testing may be necessary when evaluating a patient with possible respiratory tract infection.The Above results have been determined by using the Formula XOArray system.AdonitArray is an automated in vitro diagnostic system thatutilizes nested multiplex Polymerase Chain Reaction (PCR)and high-resolution melting analysis to detect and identifymultiple nucleic acid targets from clinical specimens. ID Date Data Source OffSite VISION Respiratory Panel 12/09/2020 12:00:00 AM EDT eCW1 ([facility]) Name Value Range Interpretation Code Description Data Anastasiya rce(s) Supporting Document(s) Not Detected Not Adenovirus eCW1 ([facility]) Not Detected Not Coronavirus NL63 eCW1 ( [facility]) Not Detected Not Coronavirus HKU1 eCW1 ( [facility]) Not Detected Not Coronavirus 229E eCW1 ( [facility]) Not Detected Not Coronavirus OC43 eCW1 ( [facility]) Not Detected Not Human Rhinovirus eCW1 ( [facility]) Not Detected Not Human Metapneumovirus e CW1 ([facility]) Not Detected Not Sars Cov 2 eCW1 ([facility]) Not Detected Not Parainfluenza Virus 1 e CW1 ([facility]) Not Detected Not Parainfluenza Virus 2 e CW1 ([facility]) Not Detected Not Parainfluenza Virus 3 e CW1 ([facility]) Not Detected Not Influenza A eCW1 ([facility]) Not Detected Not Influenza B eCW1 ([facility]) Not Detected Not Bordetella parapertus ( [id number]) eCW1 ([facility]) Not Detected Not Bordetella pertussis (p txP) eCW1 ([facility]) Not Detected Not Parainfluenza Virus 4 e CW1 ([facility]) Not Detected Not Respiratory Syncytial V irus eCW1 ([facility]) Not Detected Not Chlamydia pneumoniae eC W1 ([facility]) Not Detected Not Mycoplasma pneumoniae e CW1 ([facility]) ID Date Data Source [id number] 10/30/2020 05:51:00 PM EST [facility] Patient: ALEJANDRA POLK Observation R eport - [facility].VisitID: [id number] [place] [address] [phone], FRegistration Date/Time: 10/30/2020 12:31 Weight:79.3 kg (S). Height/Length:62 inches (S). BMI:32 PAST HISTORYProblems:Neck Pain [Chronic].Irregular heart beat [Chronic].Myalgias [Chronic].Asthma [Chronic].Herniated Disk [Chronic].Crohn's Disease [Chronic].Diabetes Mellitus [Chronic].Sporatic ventricular tachacardia [Chronic].Depression [Chronic].Cervical Radiculopathy [Chronic].Ovarian Cyst [Chronic].Dehydration.Ca rdiovascular Risk Factors.Asthma.Arrhythmia.Back Pain.Atypical Chest Pain.Dyspnea.Lung Disease.Other Disease.Heart Disease.Diabetes Mellitus.Headache [Resolved].Abdominal Pain [Resolved].Influenza [Resolved].Heart Disease [Resolved].Crohn's Disease [Resolved].Atypical Chest Pain [Resolved].Abdominal Pain [Resolved].Dehydration [Resolved].Myofascial Strain [Resolved].Pharyngitis [Resolved].UTI - Urinary Tract Infection [Resolved].Syncope [Resolved].Viral Disease [Resolved].Pulmonary Embolism [RuleOut]. Additional Surgeries:C section x1.Cardiac ablation.Cardiac Procedures.Hysterectomy.Laparoscopy. M edications:ARIPiprazole Oral (Tablet 5 mg) 1 tablet, daily, last dose last night.Cetirizine HCl Oral (Tablet 10 mg) 1 tablet, last dose last night.Cymbalta Oral 30 mg, daily every PM, last dose last night (depression/fiber myalgia).Bracey Carbonate ER Oral (Tablet Extended Release 300 mg) 1 tablet, daily, last dose last night .Omeprazole Oral (Capsule Delayed Release 40 mg) 1 capsule, daily as needed, last dose last night .Steglatro Oral (Tablet 15 mg) 1 tablet, daily, last dose last night .Topamax Oral (Tablet 25 mg) 1 tablet, daily every PM, last dose last night.TraZODone HCl Oral 150 mg, daily every PM, last dose last night. Allergies:Macrolides and Ketolides.(hives, rash)Penicillins.(hives, rash)PredniSONE.(confusion) (Tachycardia). FAMILY HISTORYNegative. No significant family medical history. (Electronically signed by Eduardo Velez 10/30/2020 17:46) Name Value Range Interpretation Code Description Data Anastasiya rce(s) Supporting Document(s) ID Date Data Source [id number] 10/30/2020 03:39:00 PM EST [facility] DATE OF EXAMINATION: 10/30/2020 13:58 EST ABD/PEL WITH IV CONTRAST HISTORY: Pain. Left flank pain. TECHNIQUE: This CT exam was performed using the following dose reduction techniques:automated exposure control, adjustment of mA and/or kV according to thepatient's size, and use of iterative reconstruction technique. Standard contiguous axial spiral imaging was obtained from the dome of thediaphragms through the symphysis pubis without oral contrast and withoutintravenous contrast administration and with coronal reformatting. FINDINGS: Lower thorax: Unremarkable ABDOMEN: Liver: Moderate fatty infiltr ationGallbladder and bile ducts: UnremarkablePancreas: UnremarkableSpleen: UnremarkableAdrenals: UnremarkableKidneys and ureters: UnremarkableStomach and bowel: UnremarkableAppendix: Normal PELVIS: Bladder: Partially opacified, grossly unremarkableReproductive: Not clearly seen. No definite masses No free fluid or free air IMPRESSION: Moderate fatty infiltration of liver. Electronically signed in PS360 by: Shabbir Lamar M.D. 10/30/2020 15:34 EST Name Value Range Interpretation Code Description Data Anastasiya rce(s) Supporting Document(s) ID Date Data Source [id number] 10/30/2020 01:49:00 PM EST [facility] TSYSORDER [id number] Name Value Range Interpretation Code Description Data Anastasiya rce(s) Supporting Document(s) MAGNESIUM 1.9 mg/dL 1.8-2.4 [facility] ID Date Data Source [id number] 10/30/2020 01:49:00 PM EST [facility] TSYSORDER [id number] Name Value Range Interpretation Code Description Data Anastasiya rce(s) Supporting Document(s) LIPASE 125 U/L 73-393 [facility] ID Date Data Source [id number] 10/30/2020 01:49:00 PM EST [facility] TSYSORDER [id number] Name Value Range Interpretation Code Description Data Anastasiya rce(s) Supporting Document(s) GLUCOSE 165 mg/dL 74-106 H [facility] BLOOD UREA NITROGEN 14 mg/dL 7-18 [facility] CREATININE 0.71 mg/dL 0.6-1.0 [facility] SODIUM 134 mmol/L 136-145 L [facility] POTASSIUM 3.9 mmol/L 3.5-5.1 [facility] CHLORIDE 99 mmol/L 98-107 [facility] CO2 24 mmol/L 21-32 [facility] CALCIUM 9.5 mg/dL 8.5-10.1 [facility] ANION GAP 11.0 mmol/L 5-12 [facility] GLOMERULAR FILTRATION RATE >90 mL/min [facility] GFR IS CALCULATED IN mL/min/1.73m2 ABIEL L FUNCTION: >90MILDLY DECREASED: 60-89MILDY TO MODERATELY DECREASED: 45-59 MODERATELY TO SEVERELY DECREASED: 30-44SEVERELY DECREASED: 15-29RENAL FAILURE: <15 AST 12 U/L 15-37 L [facility] ALT 28 U/L 12-78 [facility] ALKALINE PHOSPHATASE 101 U/L 46-116 [facility] pital TOTAL BILIRUBIN 0.7 mg/dL 0.2-1.0 [facility] TOTAL PROTEIN 7.7 g/dl 6.4-8.2 [facility] ALBUMIN 4.0 gm/dL 3.4-5.0 [facility] ID Date Data Source [id number] 10/30/2020 01:48:00 PM [facility] TSYSORDER [id number] Name Value Range Interpretation Code Description Data Anastasiya rce(s) Supporting Document(s) PARTIAL THROMBOPLASTIN TIME 23.4 SECONDS 21.2-27.3 [facility] ID Date Data Source [id number] 10/30/2020 01:48:00 PM [facility] TSYSORDER [id number] Name Value Range Interpretation Code Description Data Anastsaiya rce(s) Supporting Document(s) PROTHROMBIN TIME (PATIENT) 9.2 SECONDS 9.1-11.6 [facility] INR 0.88 0.87-1.06 [facility] ID Date Data Source [id number] 10/30/2020 01:31:00 PM [facility] TSYSORDER [id number] Name Value Range Interpretation Code Description Data Anastasiya rce(s) Supporting Document(s) WHITE BLOOD COUNT 11.0 K/mm3 4.0-10.0 H [facility] RED BLOOD COUNT 4.54 M/mm3 4.00-5.50 [facility] HEMOGLOBIN 14.2 gm/dL 12.0-16.0 [facility] HEMATOCRIT 40.6 % 36.0-48.8 [facility] MEAN CELL VOLUME 89.4 fl 80-96 [facility] MEAN CORPUSCULAR HEMOGLOBIN 31.3 pg 27.0-31.0 H [facility] MEAN CORPUSCULAR HGB CONC 35.0 g/dl 32.0-36.0 [facility] RED CELL DISTRIBUTION WIDTH 12.2 % 10.0-14.5 [facility] PLATELET COUNT 302 K/mm3 172-450 [facility] MEAN PLATELET VOLUME 9.7 fl 9.0-13.0 [facility] pital GRAN % 63.2 % 50-80.0 [facility] IG% 0.3 % 0.0-0.2 H [facility] LYMPH % 29.6 % 25.0-50.0 [facility] MONO % 5.8 % 2.0-10.0 [facility] EOS % 0.6 % 0-5.0 [facility] BASO % 0.5 % 0.0-2.0 [facility] GRAN # 6.9 K/mm3 2.0-8.00 [facility] IG# 0.0 K/mm3 0.0-0.2 [facility] LYMPH # 3.3 K/mm3 1.0-5.0 [facility] MONO # 0.6 K/mm3 0.10-1.20 [facility] EOS # 0.1 K/mm3 0.0-0.5 [facility] BASO # 0.1 K/mm3 0.0-0.2 [facility] ID Date Data Source [id number] 10/30/2020 01:33:00 PM EST [facility] TSYSORDER [id number] Name Value Range Interpretation Code Description Data Anastasiya rce(s) Supporting Document(s) URINE COLOR. [facility] URINE APPEARANCE SLIGHTY CLOUDY [facility] URINE GLUCOSE (UA) 1000 mg/dL NEGATIVE H [facility] URINE BILIRUBIN NEGATIVE NEGATIVE [facility] URINE KETONE NEGATIVE mg/dL NEGATIVE [facility] SPECIFIC GRAVITY,URINE 1.010 1.001-1.035 [facility] URINE BLOOD NEGATIVE NEGATIVE [facility] PH,URINE 5.5 5.0-9.0 [facility] URINE PROTEIN NEGATIVE mg/dL NEGATIVE [facility] URINE UROBILINOGEN NORMAL(0.2-1) mg/dL 0-1 R [facility] URINE NITRATE NEGATIVE NEGATIVE [facility] URINE LEUKOCYTE ESTERASE NEGATIVE NEGATIVE [facility] ID Date Data Source [id number] 10/30/2020 12:52:00 PM EST [facility] TSYSORDER [id number] Name Value Range Interpretation Code Description Data Anastasiya rce(s) Supporting Document(s) HCG URINE NEGATIVE NEGATIVE [facility] ID Date Data Source [id number] 07/19/2020 06:46:00 PM EDT [facility] Patient: ALEJANDRA POLK Observation R eport - [facility].VisitID: [id number] [place] [address] [phone], FRegistration Date/Time: 07/19/2020 16:28 Weight:82.1 kg (S). Height/Length:62 inches (S). 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 Additional Surgeries:C section x1.Cardiac ablation.Cardiac Procedures.Hysterectomy.Laparoscopy. Medications:Cymbalta Oral 30 mg, daily every PM, last dose last night (depression/fiber myalgia).ARIPiprazole Oral (Tablet 5 mg) 1 tablet, daily, last dose last night.CBD Oil Oral 1ml, last dose 5 months ago.Cetirizine HCl Oral (Tablet 10 mg) 1 tablet, last dose last night.Bracey Carbonate ER Oral (Tablet Extended Release 300 mg) 1 tablet, daily, last dose last night .Omeprazole Oral (Capsule Delayed Release 40 mg) 1 capsule, daily as needed, last dose last night .ProAir HFA Inhalation (Aerosol Solution 108 (90 Base) mcg/act) 2 puffs , q4h as needed, last dose 6 months ago (rescue inhaler).Steglatro Oral (Tablet 15 mg) 1 tablet, daily, last dose last night .Topamax Oral (Tablet 25 mg) 1 tablet, daily every PM, last dose last night.TraZODone HCl Oral 150 mg, daily every PM, last dose last night.Triglide Oral (Tablet 160 mg) 1 tablet, daily, last dose last night. Allergies:Macrolides and Ketolides.(hives, rash)Penicillins.(hives, rash). FAMILY HISTORYNo significant family medical history. (Electronically signed by Enid Gomez P.A. 07/19/2020 18:21) Name Value Range Interpretation Code Description Data Anastasiya rce(s) Supporting Document(s) ID Date Data Source [id number] 07/19/2020 06:43:00 PM EDT [facility] Patient: ALEJANDRA POLK Elo R eport - [facility] [id number] [place] [address] [phone], FRegistration Date/Time: 07/19/2020 16:28 Weight:82.1 kg (S). Height/Length:62 inches (S). 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 Additional Surgeries:C section x1.Cardiac ablation.Cardiac Procedures.Hysterectomy.Laparoscopy. Medications:Cymbalta Oral 30 mg, daily every PM, last dose last night (depression/fiber myalgia).ARIPiprazole Oral (Tablet 5 mg) 1 tablet, daily, last dose last night.CBD Oil Oral 1ml, last dose 5 months ago.Cetirizine HCl Oral (Tablet 10 mg) 1 tablet, last dose last night.Bracey Carbonate ER Oral (Tablet Extended Release 300 mg) 1 tablet, daily, last dose last night .Omeprazole Oral (Capsule Delayed Release 40 mg) 1 capsule, daily as needed, last dose last night .ProAir HFA Inhalation (Aerosol Solution 108 (90 Base) mcg/act) 2 puffs , q4h as needed, last dose 6 months ago (rescue inhaler).Steglatro Oral (Tablet 15 mg) 1 tablet, daily, last dose last night .Topamax Oral (Tablet 25 mg) 1 tablet, daily every PM, last dose last night.TraZODone HCl Oral 150 mg, daily every PM, last dose last night.Triglide Oral (Tablet 160 mg) 1 tablet, daily, last dose last night. Allergies:Macrolides and Ketolides.(hives, rash)Penicillins.(hives, rash). FAMILY HISTORYNo significant family medical history. (Electronically signed by Enid Gomez, P.A. 07/19/2020 18:21) Addenda for ALEJANDRA POLK VisitID: [id number] Date: 07/19/2020 07/19/2020 18:33Chart review Pharmacy called and stated she just filled Baclophen in [place] yesterday, she told me she had taken it before but nothing about getting it filled yesterday , Robaxin cancelled.(Electronically signed by Enid Gomez P.A. - 07/19/2020 18:33) Name Value Range Interpretation Code Description Data Anastasiya rce(s) Supporting Document(s) Procedure Social History Code Duration Value Status Description Data Source(s ) Smoking 08/05/2021 12:00:00 AM EST Current Smoker completed Curre nt Smoker eCW1 ([facility]) Smoking 05/27/2021 12:00:00 AM EDT Current Smoker completed Curre nt Smoker eCW1 ([facility]) Smoking 05/27/2021 12:00:00 AM EDT Current Smoker completed Curre nt Smoker eCW1 ([facility]) Smoking 05/27/2021 12:00:00 AM EDT Current Smoker completed Curre nt Smoker eCW1 ([facility]) Smoking 02/20/2021 12:00:00 AM EDT Current Smoker completed Curre nt Smoker eCW1 ([facility]) Smoking 02/20/2021 12:00:00 AM EDT Current Smoker completed Curre nt Smoker eCW1 ([facility]) Smoking 02/20/2021 12:00:00 AM EDT Current Smoker completed Curre nt Smoker eCW1 ([facility]) Smoking 12/09/2020 12:00:00 AM EDT Current Smoker completed Curre nt Smoker eCW1 ([facility]) Smoking 12/09/2020 12:00:00 AM EDT Current Smoker completed Curre nt Smoker eCW1 ([facility]) Smoking 10/01/2020 12:00:00 AM EST Current Smoker completed Curre nt Smoker eCW1 ([facility]) Smoking 10/01/2020 12:00:00 AM EST Current Smoker completed Curre nt Smoker eCW1 ([facility]) Smoking 10/01/2020 12:00:00 AM EST Current Smoker completed Curre nt Smoker eCW1 ([facility]) Smoking 10/01/2020 12:00:00 AM EST Current Smoker completed Curre nt Smoker eCW1 ([facility]) Smoking 10/01/2020 12:00:00 AM EST Current Smoker completed Curre nt Smoker eCW1 ([facility]) Smoking 10/01/2020 12:00:00 AM EST Current Smoker completed Curre nt Smoker eCW1 ([facility]) Smoking 10/01/2020 12:00:00 AM EST Current Smoker completed Curre nt Smoker eCW1 ([facility]) Smoking 10/01/2020 12:00:00 AM EST Current Smoker completed Curre nt Smoker eCW1 ([facility]) Smoking 10/01/2020 12:00:00 AM EST Current Smoker completed Curre nt Smoker eCW1 ([facility]) Smoking 10/01/2020 12:00:00 AM EST Current Smoker completed Curre nt Smoker eCW1 ([facility]) Smoking 10/01/2020 12:00:00 AM EST Current Smoker completed Curre nt Smoker eCW1 ([facility]) Vital Signs ID Date Data Source UNK Name Value Range Interpretation Code Description Data Source(s) Body temperature 97.7 [degF] 97.7 [degF] MEDENT ([facility], [facility]) Body weight 180.00 [lb_av] 180.00 [lb_av] MEDEN T ([facility]) Respiratory rate 16 /min 16 /min [facility]) Diastolic blood pressure 86 mm[Hg] 86 mm[Hg] [facility]) Oxygen saturation in Arterial blood by Pulse oximetry 98 % 98 % [facility]) Heart rate 104 /min 104 /min [facility]) Body height 60 [in_i] 60 [in_i] [facility]) 5'0" Body mass index (BMI) [Ratio] 35.1 kg/m2 35.1 k g/m2 [facility]) Systolic blood pressure 123 mm[Hg] 123 mm[Hg] M EDENT ([facility]) Body mass index (BMI) [Ratio] 32.55 kg/m2 32.55 kg/m2 eCW1 ([facility]) Heart rate 98 /min 98 /min eCW1 ([facility]) Respiratory rate 18 /min 18 /min eCW1 ([facility]) Body temperature 98.6 [degF] 98.6 [degF] eCW1 ( [facility]) Systolic blood pressure 115 mm[Hg] 115 mm[Hg] e CW1 ([facility]) Body weight 178 [lb_av] 178 [lb_av] eCW1 ([facility]) Body height 62 [in_i] 62 [in_i] eCW1 ([facility]) Diastolic blood pressure 78 mm[Hg] 78 mm[Hg] eCW1 ([facility]) Body weight 180.12 [lb_av] 180.12 [lb_av] eCW1 ([facility]) Body height 62 [in_i] 62 [in_i] eCW1 ([facility]) Body mass index (BMI) [Ratio] 32.94 kg/m2 32.94 kg/m2 eCW1 ([facility]) Heart rate 99 /min 99 /min eCW1 ([facility]) Respiratory rate 16 /min 16 /min eCW1 ([facility]) Body temperature 97.1 [degF] 97.1 [degF] eCW1 ( [facility]) Systolic blood pressure 110 mm[Hg] 110 mm[Hg] e CW1 ([facility]) Diastolic blood pressure 75 mm[Hg] 75 mm[Hg] eCW1 ([facility]) Respiratory rate 16 /min 16 /min MEDENT ( [facility], [facility]) Oxygen saturation in Arterial blood by Pulse oximetry 97 % 97 % MEDENT ([facility], [facility]) Diastolic blood pressure 85 mm[Hg] 85 mm[Hg] MEDENT ([facility], [facility]) Systolic blood pressure 122 mm[Hg] 122 mm[Hg] M EDENT ([facility], [facility]) Heart rate 99 /min 99 /min MEDENT ([facility], [facility]) Body weight 180.00 [lb_av] 180.00 [lb_av] MEDEN T ([facility], [facility]) Body temperature 98.4 [degF] 98.4 [degF] MEDENT ([facility], [facility]) Body height 62 [in_i] 62 [in_i] MEDENT ([facility], [facility]) 5'2" Body mass index (BMI) [Ratio] 32.9 kg/m2 32.9 k g/m2 MEDENT ([facility], [facility]) Body height 62 [in_i] 62 [in_i] eCW1 ([facility]) Body weight 178 [lb_av] 178 [lb_av] eCW1 ([facility]) Body mass index (BMI) [Ratio] 32.55 kg/m2 32.55 kg/m2 eCW1 ([facility]) Body temperature 97.9 [degF] 97.9 [degF] eCW1 ( [facility]) Heart rate 113 /min 113 /min eCW1 ([facility]) Respiratory rate 17 /min 17 /min eCW1 ([facility]) Oxygen saturation in Arterial blood by Pulse oximetry 98 % 98 % eCW1 ([facility]) Body weight 176 [lb_av] 176 [lb_av] eCW1 ([facility]) Body height 62 [in_i] 62 [in_i] eCW1 ([facility]) Body mass index (BMI) [Ratio] 32.19 kg/m2 32.19 kg/m2 eCW1 ([facility]) Heart rate 96 /min 96 /min eCW1 ([facility]) Respiratory rate 18 /min 18 /min eCW1 ([facility]) Body temperature 97.2 [degF] 97.2 [degF] eCW1 ( [facility]) Systolic blood pressure 110 mm[Hg] 110 mm[Hg] e CW1 ([facility]) Diastolic blood pressure 65 mm[Hg] 65 mm[Hg] eCW1 ([facility]) Systolic blood pressure 115 mm[Hg] 115 mm[Hg] M EDENT ([facility]) Diastolic blood pressure 80 mm[Hg] 80 mm[Hg] MEDENT ([facility]) Heart rate 96 /min 96 /min MEDENT ([facility] Respiratory rate 16 /min 16 /min MEDENT ( [facility], [facility]) Oxygen saturation in Arterial blood by Pulse oximetry 98 % 98 % MEDENT ([facility], [facility]) Body temperature 98.4 [degF] 98.4 [degF] MEDENT ([facility], [facility]) Body weight 184.00 [lb_av] 184.00 [lb_av] MEDEN T ([facility], [facility]) Body height 62 [in_i] 62 [in_i] MEDENT ([facility], [facility]) 5'2" Body mass index (BMI) [Ratio] 33.7 kg/m2 33.7 k g/m2 MEDENT ([facility], [facility]) Body height 62 [in_i] 62 [in_i] ASHLEE ([facility]) Diastolic blood pressure 80 mm[Hg] 80 mm[Hg] ASHLEE ([facility]) Systolic blood pressure 140 mm[Hg] 140 mm[Hg] A THENA ([facility]) Diastolic blood pressure 80 mm[Hg] 80 mm[Hg] ASHLEE ([facility]) Body height 62 [in_i] 62 [in_i] ASHLEE ([facility]) Systolic blood pressure 140 mm[Hg] 140 mm[Hg] A THENA ([facility]) Systolic blood pressure 112 mm[Hg] 112 mm[Hg] M EDENT ([facility], [facility]) Diastolic blood pressure 77 mm[Hg] 77 mm[Hg] MEDENT ([facility], [facility]) Heart rate 102 /min 102 /min MEDENT ([facility], [facility]) Respiratory rate 14 /min 14 /min MEDENT ( [facility], [facility]) Oxygen saturation in Arterial blood by Pulse oximetry 95 % 95 % MEDENT ([facility], [facility]) Body temperature 98.6 [degF] 98.6 [degF] MEDENT ([facility], [facility]) Body height 62 [in_i] 62 [in_i] MEDENT ([facility], [facility]) 5'2" Body weight 184.00 [lb_av] 184.00 [lb_av] MEDEN T ([facility], [facility]) Body mass index (BMI) [Ratio] 33.7 kg/m2 33.7 k g/m2 MEDENT ([facility], [facility]) Patient Treatment Plan of Care Planned Activity Planned Date Details Description Data Source (s) Arina ODT 4 MG 08/05/2021 12:00:00 AM EST eCW1 ([facility]) NITROFURANTOIN, MACROCRYSTALS 25 MG / Ni trofurantoin, Monohydrate 75 MG Oral Capsule [Macrobid] 08/05/2021 12:00:00 AM EST eC W1 ([facility]) EPINEPHrine 0.3 MG/0.3ML 05/28/2021 12:00:00 AM EDT eCW1 ([facility]) EPINEPHrine 0.3 MG/0.3ML 05/28/2021 12:00:00 AM EDT eCW1 ([facility]) Linagliptin 5 MG Oral Tablet [Tradjenta] 02/20/2021 12:00:00 AM EDT eCW1 ([facility]) Linagliptin 5 MG Oral Tablet [Tradjenta] 02/20/2021 12:00:00 AM EDT eCW1 ([facility]) Linagliptin 5 MG Oral Tablet [Tradjenta] 02/20/2021 12:00:00 AM EDT eCW1 ([facility]) [facility] 02/06/2021 12:00:00 AM EDT eCW1 ([facility]) [facility] - 02/06/2021 12:00:00 AM EDT eCW1 ([facility]) [facility] - 02/06/2021 12:00:00 AM EDT eCW1 ([facility]) [facility] - 02/06/2021 12:00:00 AM EDT eCW1 ([facility]) [facility] - 02/06/2021 12:00:00 AM EDT eCW1 ([facility]) [facility] - 02/06/2021 12:00:00 AM EDT eCW1 ([facility]) cannabidiol (CBD) oral oil Take as needed by oral rout e. 07/18/2019 12:00:00 AM EDT ASHLEE ([facility]) cannabidiol (CBD) oral oil Take as needed by oral rout e. 07/18/2019 12:00:00 AM EDT ASHLEE ([facility]) Amoxicillin 875 MG / Clavulanate 125 MG Oral Tablet ASHLEE ([facility]) alpha lipoic acid one by mouth once daily ASHLEE ([facility]) Vitamin C one by mouth once daily ASHLEE ([facility]) topiramate 25 MG Oral Tablet ASHLEE ([facility]) Sucralfate 1000 MG Oral Tablet ASHLEE ([facility]) Steglatro 5 mg tablet ASHLEE ([facility]) Prednisone 10 MG Oral Tablet ASHLEE ([facility]) Lantus Solostar U-100 Insulin 35 units every day ASHLEE ([facility]) Acetaminophen 325 MG / Hydrocodone Bitartrate 5 MG Oral Tablet ASHLEE ([facility]) Gemfibrozil 600 MG Oral Tablet ASHLEE ([facility]) Fluconazole 150 MG Oral Tablet ASHLEE ([facility]) Escitalopram 20 MG Oral Tablet ASHLEE ([facility]) Cephalexin 500 MG Oral Capsule ASHLEE ([facility]) celecoxib 200 MG Oral Capsule ASHLEE ([facility]) Budesonide 3 MG Delayed Release Oral Capsule ASHLEE ([facility]) benzonatate 100 MG Oral Capsule ASHLEE ([facility]) Amoxicillin 875 MG / Clavulanate 125 MG Oral Tablet ASHLEE ([facility]) alpha lipoic acid one by mouth once daily ASHLEE ([facility]) Vitamin C one by mouth once daily ASHLEE ([facility]) topiramate 25 MG Oral Tablet ASHLEE ([facility]) Sucralfate 1000 MG Oral Tablet ASHLEE ([facility]) Steglatro 5 mg tablet ASHLEE ([facility]) Prednisone 10 MG Oral Tablet ASHLEE ([facility]) Lantus Solostar U-100 Insulin 35 units every day ASHLEE ([facility]) Gemfibrozil 600 MG Oral Tablet ASHLEE ([facility]) Fluconazole 150 MG Oral Tablet ASHLEE ([facility]) Escitalopram 20 MG Oral Tablet ASHLEE ([facility]) Cephalexin 500 MG Oral Capsule ASHLEE ([facility]) celecoxib 200 MG Oral Capsule ASHLEE ([facility]) Budesonide 3 MG Delayed Release Oral Capsule ASHLEE ([facility]) benzonatate 100 MG Oral Capsule ASHLEE ([facility])
[2021-08-06] MEDS ORDERED: NITR100C2 (07:17)
[2021-08-06] MEDS ORDERED: ONDANSETRON 4MG/2ML VIAL IV ONE (08:10)
[2021-08-06] MEDS ORDERED: NS 1,000 ML IV ONE ×2 (08:10→08:40)
[2021-08-06] MEDS ORDERED: KETOROLAC 30 MG/ML 1ML VIAL IV ONE (08:10)
--- OUTSIDE RECORDS SUMMARY | 2021-08-06 08:18 | CCD ---
Author Author [facility] Organization [facility] Address Unknown Phone Unavailable Support Name Relationship Address Phone [place] [address] Unavailable [facility] Next Of Kin [address] [place] [address] [facility] Next Of Kin [address] [facility] [address] [place] [address] Becky POLK Next Of Kin [address] [place] [address] Unavailable ECKERDWATN Next Of Kin [address] [place] [address] ST Next Of Kin Unknown Unavailable UE Next Of Kin Unknown Unavailable JE SANCHEZ Next Of Kin [address] [place] [address] [facility] Ne xt Of Kin [address] [place] [address] RONAK THEODORE Next Of Kin Unknown Next Of Kin [address] [place] [address] NCOG Next Of Kin [address] [place] [address] GILCO RICKY Next Of Kin [address] [place] [address] UNK Next Of Kin Unknown Unavailable [facility] [place] Next Of Kin [address] [facility] [address] [place] [address] TAY PHILLIPS Next Of Kin [address] [place] [address] [place] [address] Regine POLK Next Of Kin [address] [place] [address] [facility] [place] [address] MARA CAMILOHI Next Of Kin [address] [place] [address] RONAK [place] [address] LEXIS FINCH ECON [address] [place] [address] Unavailable TAY TEMPLETON ECON [address] [place] [address] Unavailable TAY PHILLIPS ECON [address] [place] [address] Unavailable Care Team Providers Care Quality Review Specialist Name Role Phone Juany Jacobsen MD Unavailable [...] Unavailable Unavailable Stan MARIE MD Unavailable Unavailable Satn MARIE MD Unavailable Unavailable Stan MARIE MD [...] H LISETH MD Unavailable Unavailable FRANK, H LISTEH MD Unavailable Unavailable FRANK, H LISETH MD Unavailable Unavailable FRANK, H LISETH MD Unavailable Unavailable FRANK, H LISETH MD Unavailable Unavailable FRANK, H LISETH MD Unavailable Unavailable FRANK, H LISETH MD Unavailable Unavailable FRANK, H LISETH MD Unavailable Unavailable FRANK, H LISETH MD Unavailable Unavailable FRANK, H LISETH MD Unavailable Unavailable FRANK, H LISETH MD Unavailable Unavailable BEREKET GRIGGS Unavailable Unavailable Finch, Lexis RAND MAKER Unavailable Unavailable Finch, Lexis RAND MAKER Unavailable Unavailable Finch, Lexis RAND MAKER Unavailable Unavailable Finch, Lexis RAND MAKER Unavailable Unavailable Finch, Lexis RAND MAKER Unavailable Unavailable Finch, Lexis RAND MAKER Unavailable Unavailable Finch, Lexis RAND MAKER Unavailable Unavailable Finch, Lexis RAND MAKER Unavailable Unavailable Finch, Lexis RAND MAKER Unavailable Unavailable Finch, Lexis RAND MAKER Unavailable Unavailable Finch, Lexis RAND MAKER Unavailable Unavailable Finch, Lexis RAND MAKER Unavailable Unavailable Finch, Lexis RAND MAKER Unavailable Unavailable Finch, Lexis RAND MAKER Unavailable Unavailable Finch, Lexis RAND MAKER Unavailable Unavailable Finch, Lexis RAND MAKER Unavailable Unavailable Finch, Lexis RAND MAKER Unavailable Unavailable Finch, Lexis RAND MAKER Unavailable Unavailable Finch, Lexis RAND MAKER Unavailable Unavailable Finch, Lexis RAND MAKER Unavailable Unavailable Finch, Lexis RAND MAKER Unavailable Unavailable Finch, Lexis RAND MAKER Unavailable Unavailable Finch, Lexis RAND MAKER Unavailable Unavailable Finch, Lexis RAND MAKER Unavailable Unavailable Finch, Lexis RAND MAKER Unavailable Unavailable Finch, Lexis RAND MAKER Unavailable Unavailable Finch, Lexis RAND MAKER Unavailable Unavailable Finch, Lexis RAND MAKER Unavailable Unavailable Finch, Lexis RAND MAKER Unavailable Unavailable Finch, Lexis RAND MAKER Unavailable Unavailable Finch, Lexis RAND MAKER Unavailable Unavailable Finch, Lexis RAND MAKER Unavailable Unavailable Finch, Lexis RAND MAKER Unavailable Unavailable Finch, Lexis RAND MAKER Unavailable Unavailable Finch, Lexis RAND MAKER Unavailable Unavailable Finch, Lexis RAND MAKER Unavailable Unavailable Finch, Lexis RAND MAKER Unavailable Unavailable Finch, Lexis RAND MAKER Unavailable Unavailable Finch, Lexis RAND MAKER Unavailable Unavailable Finch, Lexis RAND MAKER Unavailable Unavailable Finch, Lexis RAND MAKER Unavailable Unavailable Finch, Lexis RAND MAKER Unavailable Unavailable SYMENOW, G CHRISTOPHER PA Unavailable [...] SANJANA PA Unavailable Unavailable Jumalon, M Jayleen RAND MAKER Unavailable Unavailable Jumalon, M Jayleen RAND MAKER Unavailable Unavailable Jumalon, M Jayleen RAND MAKER Unavailable Unavailable Jumalon, M Jayleen RAND MAKER Unavailable Unavailable Jumalon, M Jayleen RAND MAKER Unavailable Unavailable Jumalon, M Jayleen RAND MAKER Unavailable Unavailable Jumalon, M Jayleen RAND MAKER Unavailable Unavailable Jumalon, M Jayleen RAND MAKER Unavailable Unavailable Jumalon, M Jayleen RAND MAKER Unavailable Unavailable Jumalon, M Jayleen RAND MAKER Unavailable Unavailable Jumalon, M Jayleen RAND MAKER Unavailable Unavailable Jumalon, M Jayleen RAND MAKER Unavailable Unavailable Jumalon, M Jayleen RAND MAKER Unavailable Unavailable Jumalon, M Jayleen RAND MAKER Unavailable Unavailable Jumalon, M Jayleen RAND MAKER Unavailable Unavailable Jumalon, M Jayleen RAND MAKER Unavailable Unavailable Jumalon, M Jayleen RAND MAKER Unavailable Unavailable Jumalon, M Jayleen RAND MAKER Unavailable Unavailable Jumalon, M Jayleen RAND MAKER Unavailable Unavailable Jumalon, M Jayleen RAND MAKER Unavailable Unavailable Jumalon, M Jayleen RAND MAKER Unavailable Unavailable Jumalon, M Jayleen RAND MAKER Unavailable Unavailable Jumalon, M Jayleen RAND MAKER Unavailable Unavailable Jumalon, M Jayleen RAND MAKER Unavailable Unavailable Jumalon, M Jayleen RAND MAKER Unavailable Unavailable Jumalon, M Jayleen RAND MAKER Unavailable Unavailable Jumalon, M Jayleen RAND MAKER Unavailable Unavailable Jumalon, M Jayleen RAND MAKER Unavailable Unavailable Jumalon, M Jayleen RAND MAKER Unavailable Unavailable Jumalon, M Jayleen RAND MAKER Unavailable Unavailable TOMÁS (FRANK), Win LARSON MD Unavailable Unavailab alvin ENGLAND (FRANK), Win LARSON MD Unavailable Unavailab alvin ENGLAND (FRANK), Win LARSON MD Unavailable Unavailab alvin ENGLAND (FRANK), Win LARSON MD Unavailable Unavailab lavin ENGLAND (FRANK), Win LARSON MD Unavailable Unavailab [...] LARSON MD Unavailable Unavailab le TOMÁS (FRANK), Wni LARSON MD Unavailable Unavailab le TOMÁS (FRANK), Win LARSON MD Unavailable Unavailab le TOMÁS (FRANK), Win LARSON MD Unavailable Unavailab le TOMÁS (FRANK), Win LARSON MD Unavailable Unavailab le TOMÁS (FRANK), Win LARSON MD Unavailable Unavailab le TOMÁS (FRANK), Win LARSON MD Unavailable Unavailab le TOMÁS (FRANK), iWn LARSON MD Unavailable Unavailab le TOMÁS (FRANK), [...] LARSON MD Unavailable Unavailab le TOMÁS (FRANK), Wni LARSON MD Unavailable Unavailab le TOMÁS (FRANK), [...] DiVencenzo, Mitchell DO Unavailable Unavailable DESJARLAIS, NIA SAND BLASTER Unavailable Unavailable DESJARLAIS, NIA SAND BLASTER Unavailable Unavailable DESJARLAIS, NIA SAND BLASTER Unavailable Unavailable DESJARLAIS, NIA SAND BLASTER Unavailable Unavailable DESJARLAIS, NIA SAND BLASTER Unavailable Unavailable DESJARLAIS, NIA SAND BLASTER Unavailable Unavailable DESJARLAIS, INA SAND BLASTER Unavailable Unavailable DESJARLAIS, NIA SAND BLASTER Unavailable Unavailable DESJARLAIS, NIA SAND BLASTER Unavailable Unavailable DESJARLAIS, NIA SAND BLASTER Unavailable Unavailable JANE BLAIR MD Unavailable Unavailable [...] Unavailable JASON, ALLY ENID PA Unavailable Unavailable AJSON, ALLY ENID PA Unavailable Unavailable JASON, ALLY ENID PA Unavailable Unavailable JASON, ALLY ENID PA Unavailable Unavailable JASON, ALLY ENID PA Unavailable Unavailable JASON, ALLY ENID PA Unavailable Unavailable JASON, ALLY ENID PA Unavailable Unavailable JASON, ALLY ENID PA Unavailable Unavailable Kay, Eunice SAND BLASTER Unavailable Unavailable Kay, Eunice SAND BLASTER Unavailable Unavailable Kay, Eunice SAND BLASTER Unavailable Unavailable Kay, Eunice SAND BLASTER Unavailable Unavailable Kay, Eunice SAND BLASTER Unavailable Unavailable Kay, Eunice SAND BLASTER Unavailable Unavailable Kay, Eunice SAND BLASTER Unavailable Unavailable Kay, Eunice SAND BLASTER Unavailable Unavailable Kay, Eunice SAND BLASTER Unavailable Unavailable Kay, Eunice SAND BLASTER Unavailable Unavailable Kay, Eunice SAND BLASTER Unavailable Unavailable Kay, Eunice SAND BLASTER Unavailable Unavailable Kay, Eunice SAND BLASTER Unavailable Unavailable CODY, KEERTHI PA Unavailable Unavailable [...] Unavailable HALE, L AMY MD Unavailable Unavailable PATTERSONVILLE, L AMY MD Unavailable Unavailable PATTERSONVILLE, L AMY MD Unavailable Unavailable PATTERSON[place]LE, L AMY MD Unavailable Unavailable [place], L AMY MD Unavailable Unavailable PATTERSON[place], L AMY MD Unavailable Unavailable PAT[place], L AMY MD Unavailable Unavailable [place], L AMY MD Unavailable Unavailable PAT[place], L AMY MD Unavailable Unavailable [place], L AMY MD Unavailable Unavailable PATTER[place], L AMY MD Unavailable Unavailable PAT[place], L AMY MD Unavailable Unavailable [place]TER[place], L AMY MD Unavailable Unavailable [place]TER[place], L AMY MD Unavailable Unavailable PATTER[place], L AMY MD Unavailable Unavailable [place], L AMY MD Unavailable Unavailable [place], L AMY MD Unavailable Unavailable [place], L AMY MD Unavailable Unavailable [place]TER[place], L AMY MD Unavailable Unavailable [place], L AMY MD Unavailable Unavailable [place], L AMY MD Unavailable Unavailable PAT[place], L AMY MD Unavailable Unavailable [place], L AMY MD Unavailable Unavailable [place], L AMY MD Unavailable Unavailable [place], L AMY MD Unavailable Unavailable [place], L AMY MD Unavailable Unavailable [place], L AMY MD Unavailable Unavailable [place], L AMY MD Unavailable Unavailable [place], L AMY MD Unavailable Unavailable [place], L AMY MD Unavailable Unavailable [place], L AMY MD Unavailable Unavailable [place], L AMY MD Unavailable Unavailable [place], L AMY MD Unavailable Unavailable HALE, L AMY MD Unavailable Unavailable [place], L AMY MD Unavailable Unavailable [place], L AMY MD Unavailable Unavailable [place], L AMY MD Unavailable Unavailable [place], L AMY MD Unavailable Unavailable [place], L AMY MD Unavailable Unavailable HALE, L [...] A KEYSHAWN PA Unavailable Unavailable LETTIERE, A KEYSAHWN PA Unavailable Unavailable LETTIERE, A KEYSHAWN PA [...] PA-C Unavailable Ludwin Ramírez PA-C Unavailable MEDENT_23, [id number] Unavailable [phone] MEDENT_23, [id number] Unavailable [phone] [facility]_23, [id number] Unavailable [phone] MEDENT_23, [id number] Unavailable [phone] MEDENT_23, [id number] Unavailable [phone] MEDENT_23, [id number] Unavailable [phone] [facility]_23, [id number] Unavailable [phone] [facility]_23, [id number] Unavailable [phone] MEDENT_23, [id number] Unavailable [phone] MEDENT_23, [id number] Unavailable [phone] MEDENT_23, [id number] Unavailable [phone] Margarita Beatty Unavailable Margarita Beatty Unavailable ERNA [...] PA Unavailable Unavailable Mary Lou, A Sun RAND MAKER Unavailable Unavailable Mary Lou, A Sun RAND MAKER Unavailable Unavailable Mary Lou, A Sun RAND MAKER Unavailable Unavailable Mary Lou, A Sun RAND MAKER Unavailable Unavailable Mary Lou, A Sun RAND MAKER Unavailable Unavailable Mary Lou, A Sun RAND MAKER Unavailable Unavailable Mary Lou, A Sun RAND MAKER Unavailable Unavailable Mary Lou, A Sun RAND MAKER Unavailable Unavailable Mary Lou, A Sun RAND MAKER Unavailable Unavailable Mary Lou, A Sun RAND MAKER Unavailable Unavailable Mary Lou, A Sun RAND MAKER Unavailable Unavailable Mary Lou, A Sun RAND MAKER Unavailable Unavailable Mary Lou, A Sun RAND MAKER Unavailable Unavailable Mary Lou, A Sun RAND MAKER Unavailable Unavailable Mary Lou, A Sun RAND MAKER Unavailable Unavailable Mary Lou, A Sun RAND MAKER Unavailable Unavailable Mary Lou, A Sun RAND MAKER Unavailable Unavailable Mary Lou, A Sun RAND MAKER Unavailable Unavailable Mary Lou, A Sun RAND MAKER Unavailable Unavailable Mary Lou, A Sun RAND MAKER Unavailable Unavailable Mary Lou, A Sun RAND MAKER Unavailable Unavailable Mary Lou, A Sun RAND MAKER Unavailable Unavailable Mary Lou, A Sun RAND MAKER Unavailable Unavailable Mary Lou, A Sun RAND MAKER Unavailable Unavailable Mary Lou, A Sun RAND MAKER Unavailable Unavailable Mary Lou, A Sun RAND MAKER Unavailable Unavailable Mary Lou, A Sun RAND MAKER Unavailable Unavailable Mary Lou, A Sun RAND MAKER Unavailable Unavailable Mary Lou, A Sun RAND MAKER Unavailable Unavailable Mary Lou, A Sun RAND MAKER Unavailable Unavailable Mary Lou, A Sun RAND MAKER Unavailable Unavailable Mary Lou, A Sun RAND MAKER Unavailable Unavailable Mary Lou, A Sun RAND MAKER Unavailable Unavailable Mary Lou, A Sun RAND MAKER Unavailable Unavailable Mary Lou, A Sun RAND MAKER Unavailable Unavailable Mary Lou, A Sun RAND MAKER Unavailable Unavailable Mary Lou, A Sun RAND MAKER Unavailable Unavailable Mary Lou, A Sun RAND MAKER Unavailable Unavailable Mary Lou, A Sun RAND MAKER Unavailable Unavailable Mary Lou, A Sun RAND MAKER Unavailable Unavailable Mary Lou, A Sun RAND MAKER Unavailable Unavailable Mary Lou, A Sun RAND MAKER Unavailable Unavailable Mary Lou, A Sun RAND MAKER Unavailable Unavailable Mary Lou, A Sun RAND MAKER Unavailable Unavailable Mary Lou, A Sun RAND MAKER Unavailable Unavailable Mary Lou, A Sun RAND MAKER Unavailable Unavailable Mary Lou, A Sun RAND MAKER Unavailable Unavailable Mary Lou, A Sun RAND MAKER Unavailable Unavailable Mary Lou, A Sun RAND MAKER Unavailable Unavailable Mary Lou, A Sun RAND MAKER Unavailable Unavailable Mary Lou, A Sun RAND MAKER Unavailable Unavailable Mary Lou, A Sun RAND MAKER Unavailable Unavailable Mary Lou, A Sun RAND MAKER Unavailable Unavailable Mary Lou, A Sun RAND MAKER Unavailable Unavailable Cueva, W Mitchell RPA-C Unavailable [...] is protected by Article 27-F of the [facility] Public Health law. If you continue you may have access to information: Regarding HIV / AIDS; Provided by facilities licensed or operated by the [facility] Office of Mental Health; or Provided by the [facility] Office for People With Developmental Disabilities. If such information is present, then the following [facility] mandated warning applies: This information has been [...] law may result in a fine or skilled nursing sentence or both. A general authorization for the release of medical or other information is NOT sufficient authorization for further disc losure. Family History Family Member Name Family Member Gender Family Member Status Date o f Status Description Data Source(s) Unknown Male Problem MEDENT ([facility] ) Encounters Encounter Providers Location Date Indications Data Source(s ) Unknown [address] [facility] [id number] 08/05/2021 12:00:00 AM EST eCW1 ([facility]) Outpatient Attender: SANJANA licea 07/27/2021 08:40:00 AM EST MEDENT ([facility]) Outpatient Attender: NIA CANTU NP 07/24/2021 04: 30:00 PM [facility] Outpatient Attender: BEREKET GRIGGS 07/17/2021 05:00:00 PM [facility] Outpatient Attender: NIA CANTU NP 07/10/2021 03: 20:00 PM [facility] Outpatient Attender: BEREKET GRIGGS 07/08/2021 04:59:00 PM [facility] Outpatient Attender: BEREKET GRIGGS 06/30/2021 08:54:00 AM [facility] Emergency Attender: Ludwin HSU-CReferrer: Lexis Finch RAND MAKER EMERGENCY ROOM-ER 06/24/2021 01:11:00 PM EDT - 06/24/2021 02:31:00 PM [facility] Patient discharged. Unknown [address] [facility] [address] 06/24/2021 12:00:00 AM EDT eCW1 ([facility]) Outpatient [address] [facility] [address] 05/27/2021 12:00:00 AM EDT eCW1 ([facility]) Unknown [address] [facility] [address] 05/27/2021 12:00:00 AM EDT eCW1 ([facility]) Emergency Attender: ENID DANIELefvashtier: Farooq Finch [facility] EMERGENCY ROOM-ER 04/29/2021 05:54:00 PM EDT - 04/29/2021 09:31:00 PM [facility] Patient discharged. Outpatient Attender: NIA CANTU NP 04/17/2021 04: 40:00 PM [facility] Outpatient Attender: NIA CANTU NP 02/28/2021 11: 18:00 AM [facility] Outpatient [address] [facility] [address] 02/20/2021 12:00:00 AM EDT eCW1 ([facility]) Unknown [address] [facility] [address] 02/14/2021 12:00:00 AM EDT eCW1 ([facility]) Outpatient Attender: SANJANA licea 02/06/2021 05:10:00 PM EDT MEDENT ([facility]) Unknown [address] [facility] [address] 02/06/2021 12:00:00 AM EDT eCW1 ([facility]) Unknown [address] [facility] [address] 02/06/2021 12:00:00 AM EDT eCW1 ([facility]) Unknown [address] [facility] [address] 02/06/2021 12:00:00 AM EDT eCW1 ([facility]) Unknown [address] [facility] [address] 12/22/2020 12:00:00 AM EDT eCW1 ([facility]) Emergency Attender: ENID Whippleer: Farooq Finch [facility] EMERGENCY ROOM-ER 12/11/2020 09:49:00 AM EDT - 12/11/2020 11:44:[address] [facility] Patient discharged. Outpatient Attender: Sun Barreto FNPReferrer: Lexis Finch [facility] EMERGENCY ROOM-CLN2 12/09/2020 02:00:00 PM EDT - 12/09/2020 02:00:[address] [facility] 12/09/2020 12:00:00 AM EDT eCW1 ([facility]) [facility] 12/09/2020 12:00:00 AM EDT eCW1 ([facility]) Outpatient Attender: NIA CANTU NP 11/27/2020 04: 40:00 PM [facility] Emergency Attender: LYLA Pink: Jet Finch [facility] EMERGENCY ROOM-ER 10/30/2020 02:15:00 PM EST - 10/30/2020 04:25:[address] [facility] Patient discharged. Attender: JANE BLAIR MD [facility] 10/01/2020 07:09:00 PM EST - 10/01/2020 07:09:00 PM EST [facility] ( [facility]) Outpatient [address] [facility] [address] 10/01/2020 12:00:00 AM EST eCW1 ([facility]) Unknown [address] [facility] [address] 10/01/2020 12:00:00 AM EST eCW1 ([facility]) Unknown [address] [facility] [address] 10/01/2020 12:00:00 AM EST eCW1 ([facility]) Jayleen Wynne Janay, SAND BLASTER: [address], [place] [address], Ph. Attender: Jayleen Garciamayarmichael [facility] - [facility] - [facility] Office 09/27/2020 12:00:00 AM EST ATHE NA ([facility]) Outpatient Attender: AMY HALE MDReferrer: LISETH BONDS MD 09/18/2020 12:00:00 AM [facility] Outpatient Attender: Margarita BeattyAttender: MARGARITA BEATTY 09/04/2020 06:00:00 PM [facility] Outpatient Attender: Eunice madrigal 09/02/2020 01:00:00 PM EST MEDENT ([facility]) Outpatient Attender: NIA CANTU NP 08/23/2020 04: 20:00 PM [facility] Emergency Attender: ENID GOMEZ PAReferrer: Lexis wallace [facility] 07/19/2020 05:10:00 PM EDT - 07/19/2020 06:04:00 PM EDT [facility] pital Patient discharged. Jayleen Morenojetlorena Janay, SAND BLASTER: [address], [place] [address], Ph. Attender: Jayleen Gustafson [facility] Office 07/15/2020 12:00:00 AM EDT ATHTasia NA ([facility]) Unknown [address] [facility] [address] 07/15/2020 12:00:00 AM EDT eCW1 ([facility]) Jayleen Wynne Janay, SAND BLASTER: [address], [place] [address], Ph. Attender: Jayleen Gustafson [facility] Office 07/15/2020 12:00:00 AM EDT ATHE NA ([facility]) Outpatient Attender: MARGARITA BEATTY 07/09/2020 01:59:00 PM E [facility] Outpatient Attender: NIA CANTU NP [facility]2020 [facility] KEYSHAWN gillette 06/25/2020 08:20:00 AM EDT MEDENT ([facility]) Outpatient Attender: MARGARITA BEATTY 06/24/2020 02:00:00 PM E [facility] Unknown [address] [facility] [address] 06/11/2020 12:00:00 AM EDT eCW1 ([facility]) Unknown [address] [facility] [address] 06/11/2020 12:00:00 AM EDT eCW1 ([facility]) [facility] Attender: [id number] MEDENT_23Attender: Mitchell Quinones DOAdmitter: [id number] MEDENT_23Referrer: Lexis Finch [facility] EMERGENCY ROOM-2N 02/11/2020 11:24:00 PM EDT - 02/12/2020 12:48:00 PM [facility] Patient discharged. Outpatient Attender: MARSHA ENGLAND ([place]CHELL) MDReferrer: Farooq Finch [facility] 12/20/2019 03:18:00 PM EDT - 12/20/2019 03:18:00 PM [facility] Emergency Attender: KEERTHI ROSS PAReferrer: Lexis Finch [facility] 11/06/2019 02:12:00 PM EST - 11/06/2019 05:04:00 PM [facility] pital Patient discharged. Outpatient Attender: ENID GOMEZ PAReferrer: Leixs wallace [facility] 11/02/2019 09:00:00 AM [facility] Emergency Attender: ENID GOMEZ PAReferrer: Farooq Finch [facility] EMERGENCY ROOM-ER 11/01/2019 09:28:00 PM EST - 11/01/2019 11:16:00 PM [facility] Patient discharged. Emergency Attender: CIERA HU PAReferrer : Lexis Finch [facility] EMERGENCY ROOM-ER 09/22/2019 02:29:00 PM EST - 09/22/2019 05:19:00 PM [facility] Patient discharged. Emergency Attender: LYLA DANIELeferrer: Jet Finch [facility] EMERGENCY ROOM-ER 05/17/2019 05:32:00 PM EDT - 05/17/2019 09:45:00 PM [facility] Patient discharged. Emergency Attender: PERLA TOUREReferrer: Stacia Finch [facility] EMERGENCY ROOM-ER 04/18/2019 06:40:00 AM EDT - 04/18/2019 09:30:00 AM [facility] Inpatient Attender: Bree Jacobsen MDAdmitter: Bere Jacobsen MD EMERGENCY ROOM-2N 03/08/2018 04:02:00 PM EDT - 03/09/2018 02:03:00 PM [facility] Emergency Attender: ENID HSU 06:40:00 PM EDT - 06/01/2016 08:24:00 PM [facility] Emergency Attender: CIERA HSU EMERGENCY ROOM- ER 03/28/2012 01:51:00 PM EDT - 03/28/2012 06:24:00 PM [facility] Immunizations Vaccine Date Status Description Data Source(s) Pfizer #2 dose COVID-19 (given elsewhere) SARSCOV2 VAC 30MCG/0.3ML IM 12/14/2020 06:54:00 AM EDT completed eCW1 ([facility]) COVID-19 VACCINE Pfizer 12/14/2020 12:00:00 AM EDT completed [facility] Vaccine Series Complete: YESThis Data wa s Submitted to [facility] Via [employer]. Pfizer #1 dose COVID-19 (given elsewhere) SARSCOV2 VAC 30MCG/0.3ML IM 11/23/2020 06:54:00 AM EST completed eCW1 ([facility]) COVID-19 VACCINE Pfizer 11/23/2020 12:00:00 AM EST completed [facility] Vaccine Series Complete: NOThis Data was Submitted to [facility] Via [employer]. Medications Medication Brand Name Start Date Product Form Dose Route Admi nistrative Instructions Pharmacy Instructions Status Indications Reaction Description Data Source(s) Zofran ODT 4 MG UNK 08/05/2021 12:00:00 AM EST 1.0 {tablet_on_the_tongue_and_allow_to_dissolve} active Zofran ODT 4 MG eCW1 ([facility]) NITROFURANTOIN, MACROCRYSTALS 25 MG / Ni trofurantoin, Monohydrate 75 MG Oral Capsule [Macrobid] Macrobid 100 MG Macrobid 100 MG 08/05/2021 12:00:00 AM EST active Macrobid 100 MG eCW1 ([facility]) 1,250 mcg (50,000 unit) 07/23/2021 12:00:00 AM [...] AM EDT active EPINEPHrine 0.3 MG/0.3ML eCW1 ([facility]) EPINEPHrine 0.3 MG/0.3ML EPINEPHrine 0.3 MG/0.3ML 05/28/2021 12:00: 00 AM EDT active EPINEPHrine 0.3 MG/0.3ML eCW1 ([facility]) [id number] 0.3 ML Epinephrine 1 MG/ML Auto-Injector EPINEPHRI NE 05/28/2021 12:00:00 AM EDT auto-injector [address] NEEDED FOR BEE STING; CALL 911 AFTER ADMINISTRATION DIRECTED INJECT NEEDED FOR BEE STI NG; CALL 911 AFTER ADMINISTRATION SOLD: 06/21/2021 [facility] EPINEPHrine 0.3 MG/0.3ML EPINEPHrine 0.3 MG/0.3ML 05/28/2021 12:00: 00 AM EDT active EPINEPHrine 0.3 MG/0.3ML eCW1 ([facility]) 60 mg 05/23/2021 12:00:00 AM EDT capsule,delayed [...] 1.0 {tablet} active Tradjenta 5 MG eCW1 ([facility]) 300 mg 02/20/2021 12:00:00 AM EDT capsule [...] 1.0 {tablet} active Tradjenta 5 MG eCW1 ([facility]) 5 mg 02/20/2021 12:00:00 AM EDT tablet 30 TAKE ONE TABLET BY MOUTH EVERY DAY TAKE ONE TABLET BY MOUTH EVERY DAY SOLD: 04/25/2021 [facility] Linagliptin 5 MG Oral Tablet [Tradjenta] Tradjenta 5 MG Trad jenta 5 MG 02/20/2021 12:00:00 AM EDT 1.0 {tablet} active Tradjenta 5 MG eCW1 ([facility]) 5 mg 02/20/2021 12:00:00 AM EDT tablet [...] 1.0 {tablet} active Tradjenta 5 MG eCW1 ([facility]) Linagliptin 5 MG Oral Tablet [Tradjenta] Tradjenta 5 MG Trad jenta 5 MG 02/20/2021 12:00:00 AM EDT 1.0 {tablet} active Tradjenta 5 MG eCW1 ([facility]) 1,250 mcg (50,000 unit) 02/20/2021 12:00:00 AM [...] 1.0 {tablet} active Tradjenta 5 MG eCW1 ([facility]) 1,250 mcg (50,000 unit) 02/20/2021 12:00:00 AM [...] 1.0 {tablet} active Tradjenta 5 MG eCW1 ([facility]) BLOOD SUGAR DIAGNOSTIC 02/07/2021 12:00:00 AM EDT strip 400 TEST DIRECTED FOUR TIMES A DAY TEST DIRECTED FOUR TIMES A DAY SOLD: 02/09/2021 [facility] OneTouch Verio - OneTouch Verio - 02/06/2021 12:00:00 AM EDT active OneTouch Verio - eCW1 ([facility]) OneTouch Verio - OneTouch Verio - 02/06/2021 12:00:00 AM EDT suspended OneTouch Verio - eCW1 ([facility]) OneTouch Verio - OneTouch Verio - 02/06/2021 12:00:00 AM EDT active OneTouch Verio - eCW1 ([facility]) OneTouch Verio - OneTouch Verio - 02/06/2021 12:00:00 AM EDT active OneTouch Verio - eCW1 ([facility]) OneTouch Verio - OneTouch Verio - 02/06/2021 12:00:00 AM EDT active OneTouch Verio - eCW1 ([facility]) OneTouch Verio - OneTouch Verio - 02/06/2021 12:00:00 AM EDT active OneTouch Verio - eCW1 ([facility]) OneTouch Verio - OneTouch Verio - 02/06/2021 12:00:00 AM EDT active OneTouch Verio - eCW1 ([facility]) OneTouch Verio - OneTouch Verio - 02/06/2021 12:00:00 AM EDT active OneTouch Verio - eCW1 ([facility]) OneTouch Verio - OneTouch Verio - 02/06/2021 12:00:00 AM EDT active OneTouch Verio - eCW1 ([facility]) OneTouch Verio - OneTouch Verio - 02/06/2021 12:00:00 AM EDT active OneTouch Verio - eCW1 ([facility]) 3 ML Insulin Glargine 100 UNT/ML Pen [...] acti ve Cymbalta 60 MG eCW1 ([facility]) duloxetine 60 MG Delayed Release Oral Capsule [Cymbalt a] Cymbalta 60 MG Cymbalta 60 MG 06/27/2020 12:00:00 AM EDT 1.0 {capsule} acti ve Cymbalta 60 MG eCW1 ([facility]) 25 mcg 05/22/2020 12:00:00 AM [...] bidiol (CBD) oral oil ASHLEE ([facility]) cannabidiol (CBD) oral oil Take as needed by oral route. [id number] 07/18/2019 12:00:00 AM EDT completed canna bidiol (CBD) oral oil ASHLEE ([facility]) topiramate 25 MG Oral Tablet topiramate 25 mg tablet topiramate 25 mg tablet completed topiramate 25 MG Oral Tablet ASHLEE ([facility]) Vitamin C one by mouth once daily comple shubham Vitamin C ASHLEE ([facility]) celecoxib 200 MG Oral Capsule celecoxib 200 mg capsule celec oxib 200 mg capsule completed celecoxib 200 MG Oral Capsule ASHLEE ([facility]) Cephalexin 500 MG Oral Capsule cephalexi n 500 mg capsule TAKE 1 CAPSULE BY MOUTH THREE TIMES DAILY FOR 7 DAYS cephalexin 500 mg capsule TAKE 1 CAPSULE BY MOUTH THREE TIMES DAILY FOR 7 DAYS completed cephalexin 500 MG Oral Capsule ASHLEE ([facility]) Lantus Solostar U-100 Insulin 35 units every day completed Lantus Solostar U-100 Insulin ASHLEE ([facility]) Prednisone 10 MG Oral Tablet prednisone 10 mg tablet prednisone 10 mg tablet completed prednisone 10 MG Oral Tablet ASHLEE ([facility]) Budesonide 3 MG Delayed Release Oral Cap basilio budesonide DR - ER 3 mg capsule,delayed,extended release budesonide DR - ER 3 mg capsule,delayed,extended release compl eted budesonide 3 MG Delayed Release Oral Capsule ASHLEE ([facility]) celecoxib 200 MG Oral Capsule celecoxib 200 mg capsule celec oxib 200 mg capsule completed celecoxib 200 MG Oral Capsule ASHLEE ([facility]) Steglatro 5 mg tablet [id number] completed ertugliflozin 5 MG Oral Tablet [Steglatro] ASHLEE ([facility]) Fluconazole 150 MG Oral Tablet fluconazole 150 mg tabl et fluconazole 150 mg tablet completed fluconazole 150 MG Oral Tablet ASHLEE ([facility]) Escitalopram 20 MG Oral Tablet escitalop timmy 20 mg tablet TAKE ONE TABLET BY MOUTH EVERY DAY escitalopram 20 mg tablet TAKE ONE TABLET BY MOUTH EVERY DAY completed escitalopram 2 0 MG Oral Tablet ASHLEE ([facility]) Budesonide 3 MG Delayed Release Oral Cap basilio budesonide DR - ER 3 mg capsule,delayed,extended release budesonide DR - ER 3 mg capsule,delayed,extended release compl eted budesonide 3 MG Delayed Release Oral Capsule ASHLEE ([facility]) alpha lipoic acid one by mouth once daily completed alpha lipoic acid ASHLEE ([facility]) Prednisone 10 MG Oral Tablet prednisone 10 mg tablet prednisone 10 mg tablet completed prednisone 10 MG Oral Tablet ASHLEE ([facility]) alpha lipoic acid one by mouth once daily completed alpha lipoic acid ASHLEE ([facility]) Amoxicillin 875 MG / Clavulanate 125 MG Oral Tablet amoxicillin 875 mg-potassium clavulanate 125 mg tablet TAKE ONE TABLET BY MOUTH EVERY 12 HOURS amoxicillin 875 mg-potassium clavulanate 125 mg tablet TAKE ONE TABLET BY MOUTH EVERY 12 HOURS completed amoxici llin 875 MG / clavulanate 125 MG Oral Tablet ASHLEE ([facility]) benzonatate 100 MG Oral Capsule benzonatate 100 mg cap basilio benzonatate 100 mg capsule completed benzonatate 10 0 MG Oral Capsule ASHLEE ([facility]) Amoxicillin 875 MG / Clavulanate 125 MG Oral Tablet amoxicillin 875 mg-potassium clavulanate 125 mg tablet TAKE ONE TABLET BY MOUTH EVERY 12 HOURS amoxicillin 875 mg-potassium clavulanate 125 mg tablet TAKE ONE TABLET BY MOUTH EVERY 12 HOURS completed amoxici llin 875 MG / clavulanate 125 MG Oral Tablet ASHLEE ([facility]) Fluconazole 150 MG Oral Tablet fluconazole 150 mg tabl et fluconazole 150 mg tablet completed fluconazole 150 MG Oral Tablet ASHLEE ([facility]) Vitamin C one by mouth once daily comple shubham Vitamin C ASHLEE ([facility]) Gemfibrozil 600 MG Oral Tablet gemfibrozil 600 mg tabl et gemfibrozil 600 mg tablet completed gemfibrozil 600 MG Oral Tablet ASHLEE ([facility]) Sucralfate 1000 MG Oral Tablet sucralfat e 1 gram tablet TAKE ONE TABLET BY MOUTH FOUR TIMES A DAY NEEDED sucralfate 1 gram tablet TAKE ONE TABLET BY MOUTH FOUR TIMES A DAY NEEDED completed sucralfate 1000 MG Oral Tablet ASHLEE ([facility]) Escitalopram 20 MG Oral Tablet escitalop timmy 20 mg tablet TAKE ONE TABLET BY MOUTH EVERY DAY escitalopram 20 mg tablet TAKE ONE TABLET BY MOUTH EVERY DAY completed escitalopram 2 0 MG Oral Tablet ASHLEE ([facility]) Lantus Solostar U-100 Insulin 35 units every day completed Lantus Solostar U-100 Insulin ASHLEE ([facility] [facility]) Steglatro 5 mg tablet [id number] completed ertugliflozin 5 MG Oral Tablet [Steglatro] ASHLEE ([facility]) benzonatate 100 MG Oral Capsule benzonatate 100 mg cap basilio benzonatate 100 mg capsule completed benzonatate 10 0 MG Oral Capsule ASHLEE ([facility]) Gemfibrozil 600 MG Oral Tablet gemfibrozil 600 mg tabl et gemfibrozil 600 mg tablet completed gemfibrozil 600 MG Oral Tablet ASHLEE ([facility]) Acetaminophen 325 MG / Hydrocodone Marsha [...] 5 MG Oral Tablet ASHLEE ([facility]) Sucralfate 1000 MG Oral Tablet sucralfat e 1 gram tablet TAKE ONE TABLET BY MOUTH FOUR TIMES A DAY NEEDED sucralfate 1 gram tablet TAKE ONE TABLET BY MOUTH FOUR TIMES A DAY NEEDED completed sucralfate 1000 MG Oral Tablet ASHLEE ([facility]) topiramate 25 MG Oral Tablet topiramate 25 mg tablet topiramate 25 mg tablet completed topiramate 25 MG Oral Tablet ASHLEE ([facility]) Cephalexin 500 MG Oral Capsule cephalexi n 500 mg capsule TAKE 1 CAPSULE BY MOUTH THREE TIMES DAILY FOR 7 DAYS cephalexin 500 mg capsule TAKE 1 CAPSULE BY MOUTH THREE TIMES DAILY FOR 7 DAYS completed cephalexin 500 MG Oral Capsule ASHLEE ([facility]) Insurance Providers Payer name Policy type / Coverage type Policy ID Covered green party ID Covered green party's relationship to vaz Policy Vaz Plan Information BCBS [facility] 305/805 [id number] SP [id number] [facility] [id number] [facility] HMO/PPO/POS [id number] [facility] BC//BS [facility] Part B [id number] Self [id number] [address] [address] ALEJANDRA UNAVAILABLE 1984 [facility]VA ILABLE [facility]BS [facility] Part B [id number] Self [id number] [employer] BC//BS Commercial [id number] Self [id number] [facility] [id number] [employer] BC//BS Commercial [id number] Self [id number] [employer] [id number] Self [employer] Commercial YNC [id number] Self YN C [id number] [employer] Commercial YNC [id number] Self YN C [id number] [facility] [id number] [facility] POS [id number] BCBS [place] [id number] S [id number] [employer] Healthcare F [id number] SELF [id number] MVP Healthcare F [id number] SELF [id number] MVP H [id number] Self [id number] [facility] Comm Plan Medicaid F [id number] SELF [id number] [facility] Comm Plan Medicaid F [id number] SELF [id number] [facility] Comm Plan Medicaid F [id number] SELF [id number] [facility] [id number] 0 [id number] [facility] MEDICAID [id number] S [id number] MEDICAID [facility] [place] [id number] DF [id number] Medicaid [facility] S D [id number] SELF [id number] [place] [id number] DF [id number] Medicaid [facility] S D [id number] SELF [id number] MEDICAID [id number] S [id number] [facility] MEDICAID [id number] S [id number] [employer] COMMUNITY PLAN [id number] 0 [id number] [employer] COMMUNITY PLAN [id number] 0 [id number] [facility] MEDICAID [id number] S [id number] ANSI-Medicaid [id number] ANSI-Medicaid [id number] ANSI-Not a Secondary Insurance [id number] ANSI-Medicaid [id number] ANSI-Medicaid [id number] ANSI-Not a Secondary Insurance [id number] ANSI-Not a Secondary Insurance [id number] ANSI-Medicaid [id number] ANSI-Medicaid [id number] ANSI-Not a Secondary Insurance [id number] ANSI-Not a Secondary Insurance [id number] [id number] ANSI-Medicaid [id number] ANSI-Not a Secondary Insurance [id number] ANSI-Medicaid [id number] P HEALTHCARE [id number] S [id number] ANSI-Medicaid [id number] ANSI-Not a Secondary Insurance [id number] ANSI-Medicaid [id number] ANSI-Not a Secondary Insurance [id number] ANSI-Not a Secondary Insurance [id number] ANSI-Medicaid [id number] [facility] [id number] Self [id number] ANSI-Medicaid [id number] ANSI-Not a Secondary Insurance [id number] ANSI-Medicaid [id number] ANSI-Not a Secondary Insurance [id number] ANSI-Medicaid [id number] ANSI-Not a Secondary Insurance [id number] ANSI-Not a Secondary Insurance [id number] [facility] [id number] S [id number] [employer] [id number] S [id number] [facility] [id number] 82 [id number] ANSI-Not a Secondary Insurance [id number] ANSI-Not a Secondary Insurance [id number] [facility] [id number] S [id number] ANSI-Not a Secondary Insurance [id number] [facility] [id number] S [id number] ANSI-Not a Secondary Insurance [id number] ANSI-Not a Secondary Insurance [id number] ANSI-Not a Secondary Insurance [id number] [facility] [id number] SP [id number] ANSI-Not a Secondary Insurance [id number] ANSI-Not a Secondary Insurance [id number] [place] PPO 302/307 [id number] SP [id number] [place]BS [place] PPO 302/307 [id number] SP [id number] BCBS [place] 306/806 [id number] SP [id number] SELF PAY ONLY UNAVAILABLE SP UNAV AILABLE [place]BS [place] PPO 302/307 [id number] SP [id number] BCBS [place] PPO 302/307 [id number] SP [id number] [facility] [id number] SP [id number] [facility] [id number] [facility] [id number] [place] 305/805 [id number] SP [id number] [place] 305/805 [id number] SP [id number] HMO BLUE [id number] SP [id number] HMO BLUE [id number] SP [id number] MVP (de) Commercial [id number] Self [id number] ANSI-Not a Secondary Insurance [id number] ANSI-Not a Secondary Insurance [id number] ANSI-Not a Secondary Insurance [id number] [facility] O [id number] S [id number] ANSI-Not a Secondary Insurance [id number] ANSI-Not a Secondary Insurance [id number] ANSI-Not a Secondary Insurance [id number] [place]BS [place] PPO 302/307 [id number] SP [id number] ANSI-Not a Secondary Insurance [id number] ANSI-Commercial [id number] ANSI-Medicaid [id number] ANSI-Commercial [id number] ANSI-Commercial [id number] ANSI-Commercial [id number] ANSI-Commercial [id number] ANSI-Commercial [id number] [place] [id number] S [id number] [place] [id number] S [id number] BCBS HMO BLUE BC [id number] S [id number] [employer] [facility] Commercial [id number] Self [id number] [place] Family Health Plan Commercial [id number] Self [id number] [employer] BCBS B [id number] S [id number] [id number] [employer] BCBS B [id number] S [id number] BS Of [place] [facility] (O) [id number] Self BLUE CROSS BLUE SHIELD-O/P [id number] 18 [id number] [employer] BCBS P [id number] S [id number] [employer] BCBS P UNAVAILABLE [id number] S UNAV AILABLE [employer] BC-BS PPO 306 [id number] SP [id number] [place] [id number] S [id number] [id number] MEDICAID [id number] S [id number] [employer] [place] [id number] S [id number] [id number] [facility] MEDICAID [id number] S [id number] [facility] [id number] S [id number] BCBS HMO BLUE [id number] S [id number] [id number] BCBS [place] [id number] S [id number] [id number] SP [id number] BCBS [place] PPO 302/307 [id number] SP [id number] [facility] COMMUNITY PLAN [facility] [id number] SP [id number] BCBS [place] [id number] S [id number] [id number] [facility] COMMUNITY PLAN [facility] [id number] SP [id number] MEDICAID [id number] S [id number] MEDICAID [id number] SP [id number] SELF PAY UNAVAILABLE S UNAVAILA BLE [facility] FB [id number] S [id number] ANSI-Medicaid [id number] ANSI-Not a Secondary Insurance [id number] ANSI-Medicaid [id number] [facility] [employer] Medical STRATEGIES [id number] S [id number] [employer] STRATEGIES [id number] S [id number] ANSI-Medicaid [id number] ANSI-Not a Secondary Insurance [id number] ANSI-Medicaid [id number] ANSI-Medicaid [id number] ANSI-Not a Secondary Insurance [id number] ANSI-Medicaid [id number] ANSI-Medicaid [id number] ANSI-Medicaid [id number] ANSI-Not a Secondary Insurance [id number] ANSI-Not a Secondary Insurance [id number] Problems, Conditions, and Diagnoses Code Display Name Description Problem Type Effective Dates Data Source(s) F33.9 Major depressive disorder, recurrent, un specified MAJOR DEPRESSIVE DISORDER, RECURRENT, UNSPECIFIED Diagnosis 06/30/2021 08:54:00 AM [facility] 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 JAIL (CU RRENT) USE OF INSULIN Diagnosis 06/24/2021 01:11:00 PM [facility] Z79.84 JAIL (CURRENT) USE OF ORAL HYPOGLYC EMIC DRUGS JAIL (CURRENT) USE OF ORAL HYPOGLYCEMIC DRUGS Diagnosis 06/24/2021 01:11:00 PM [facility] Z79.899 Other fci (current) drug therapy 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 Diagnosis [facility] WITH AND (SUSPECTED) EXPOSURE TO COVID-19 CONTACT WITH AND (SUSPECTED) EXPOSURE TO COVID-19 Diagnosis 06/24/2021 01:11:00 PM [facility] F17.210 Nicotine dependence, cigarettes, uncompl icated NICOTINE DEPENDENCE, CIGARETTES, UNCOMPLICATED Diagnosis 06/24/2021 01:11:00 PM [facility] E03.9 Hypothyroidism, unspecified HYPOTHYROIDISM, UNSPECIFIE D Diagnosis 06/24/2021 01:11:00 PM [facility] E11.9 Type 2 diabetes mellitus without complic ations TYPE 2 DIABETES MELLITUS WITHOUT COMPLICATIONS Diagnosis 06/24/2021 01:11:[facility] J[facility].909 Unspecified asthma, uncomplicated UNSPECIFIED THMA, UNCOMPLICATED Diagnosis 06/24/2021 01:11:00 PM [facility] B34.9 Viral infection, unspecified VIRAL INFECTION, UNSPECIF IED Diagnosis 06/24/2021 01:11:00 PM [facility] R05.9 COUGH, UNSPECIFIED COUGH, UNSPECIFIED Diagnosis 01/2021 01:11:00 PM [facility] R07.89 Other chest pain OTHER CHEST PAIN Diagnosis 04/29/2021 05 :54:00 PM [facility] R07.9 Chest pain, unspecified CHEST PAIN, UNSPECIFIED Diagno sis 04/29/2021 05:54:00 PM [facility] M79.7 Fibromyalgia FIBROMYALGIA Diagnosis 04/17/2021 04:40:00 [facility] F33.0 Major depressive disorder, recurrent, mi ld MAJOR DEPRESSIVE DISORDER, RECURRENT, MILD Diagnosis 04/17/2021 04:40:00 PM [facility] F41.1 Generalized anxiety disorder GENERALIZED ANXIETY DISOR MAY Diagnosis 04/17/2021 04:40:00 PM [facility] F33.42 Major depressive disorder, recurrent, in full remission MAJOR DEPRESSIVE DISORDER, RECURRENT, IN FULL SERGIO Diagnosis 02/28/2021 11:18:00 AM [facility] G43.009 Migraine without aura, not intractable, without status migrainosus MIGRAINE W/O AURA, NOT INTRACTABLE, W/O STATUS ADI Diagnosis 09:49:00 AM [facility] R05 Cough COUGH Diagnosis 12/11/2020 09:49:00 AM [facility] J06.9 Acute upper respiratory infection, unspe cified ACUTE UPPER RESPIRATORY INFECTION, UNSPECIFIED Diagnosis 12/09/2020 02:00:00 PM [facility] F40.01 Agoraphobia with panic disorder AGORAPHOBIA WITH PANIC DISORDER Diagnosis 11/27/2020 04:40:00 PM [facility] Z95.5 Presence of coronary angioplasty implant and graft 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 Diagnosis 10/30/2020 02:15:00 PM [facility] 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 Diagnosis 10/30/2020 02:15:00 PM [facility] R10.12 Left upper quadrant pain LEFT UPPER QUADRANT PAIN Diag nosis 10/30/2020 02:15:00 PM [facility] R10.9 Unspecified abdominal pain UNSPECIFIED ABDOMINAL PAIN Diagnosis 10/30/2020 02:15:00 PM [facility] Y93.89 Activity, other specified ACTIVITY, OTHER SPECIFIED Di agnosis 07/19/2020 05:10:00 PM [facility] Y92.[address] in unspeci fied non-institutional (private) residence as the place of occurrence of the external cause UNSP PLACE IN UNSP NON-INSTITUT (PRIVATE) RESIDENC Diagnosis [facility] X[facility].XXXA Exposure to other specified factors, ini tial encounter EXPOSURE TO OTHER SPECIFIED FACTORS, INITIAL ENCOU Diagnosis 07/19/2020 05:10:00 [facility] S39.012A Strain of muscle, fascia and tendon of l ower back, initial encounter STRAIN OF MUSCLE, FASCIA AND TENDON OF LOWER BACK, Diagnosis 05:10:00 PM [facility] M54.5 Low back pain LOW BACK PAIN Diagnosis 07/19/2020 05:10:00 PM [facility] M79.7 [id number] Fibromyalgia Problem 07/25/2020 12:00:00 AM EST eCW1 ([facility]) Surgeries/Procedures Procedure Description Date Indications Data Source(s) OFFICE OUTPATIENT VISIT 15 MINUTES 07/27/2021 12:00:00 AM EDT [facility] ([facility]) OFFICE OUTPATIENT VISIT 25 MINUTES 02/06/2021 12:00:00 AM EDT [facility] ([facility], [facility]) Results ID Date Data Source [id number] 07/27/2021 12:00:00 AM EDT [facility] Name Value Range Interpretation Code Description Data Anastasiya rce(s) Supporting Document(s) SARS-CoV2 Rapid Antigen Negative [facility] This lab was ordered by [facility] and reported by [facility]. ID Date Data Source [id number] 09/02/2020 12:00:00 AM EST [facility] Name Value Range Interpretation Code Description Data Anastasiya rce(s) Supporting Document(s) SARS coronavirus 2 Ag [facility] This lab was ordered by [facility] and reported by [facility]. ID Date Data Source [id number] 06/25/2021 11:21:00 AM EDT [facility] Patient: ALEJANDRA POLK [facility].VisitID: [id number] [place] [address] [phone], FRegistration Date/Time: 06/24/2021 12:27 Weight:83.4 kg (S). [...] every PM, last dose last night (depression/fiber myalgia).[place] Carbonate ER Oral (Tablet Extended Release 300 [...] rce(s) Supporting Document(s) ID Date Data Source [id number] 06/24/2021 02:03:00 PM [id number] Name Value Range Interpretation Code Description Data Anastasiya rce(s) Supporting Document(s) TROPONIN-HIGH SENSITIVITY < 4.0 ng/L 0-60.4 [facility] ID Date Data Source [id number] 06/24/2021 12:34:00 PM EDT [facility] Name Value Range Interpretation Code Description Data Anastasiya rce(s) Supporting Document(s) COVID-19 NEGATIVE [facility] This lab was ordered by [facility] and reported by [facility]. ID Date Data Source [id number] 06/24/2021 01:06:00 PM EDT [facility] [id number] Name Value Range Interpretation Code Description Data Anastasiya rce(s) Supporting Document(s) COVID-[address] [facility] Negative results should be treated as pr [...] are for the indentification of SARS-CoV-2 RNA. MhjSWCK-SkY-0 RNA is generally detectable in respiratorysamples during the actue phase of infection. ID Date Data Source [id number] 05/01/2021 08:20:00 AM EDT [facility] l AP CHEST DATE OF EXAMINATION: 04/29/2021 [...] rce(s) Supporting Document(s) ID Date Data Source [id number] 04/30/2021 07:15:00 AM [facility] Patient: ALEJANDRA POLK R eport - [facility].VisitID: [id number] [place] [address] [phone], FRegistration Date/Time: 04/29/2021 17:34 Weight:81.6 kg (S). [...] every PM, last dose last night (depression/fiber myalgia).[place] Carbonate ER Oral (Tablet Extended Release 3 [...] rce(s) Supporting Document(s) ID Date Data Source [id number] 04/29/2021 09:10:00 PM EDT [facility] [id number] Name Value Range Interpretation Code Description Data Anastasiya rce(s) Supporting Document(s) TROPONIN-HIGH SENSITIVITY < 4.0 ng/L 0-60.4 [facility] ID Date Data Source [id number] 04/29/2021 07:58:00 PM EDT [facility] Name Value Range Interpretation Code Description Data Anastasiya rce(s) Supporting Document(s) COVID-19 NEGATIVE [facility] This lab was ordered by [facility] and reported by [facility]. ID Date Data Source [id number] 04/29/2021 08:18:00 PM EDT [facility] [id number] Name Value Range Interpretation Code Description Data Anastasiya rce(s) Supporting Document(s) COVID-[address] [facility] Negative results should be treated as pr [...] are for the indentification of SARS-CoV-2 RNA. GikOXVY-IpF-0 RNA is generally detectable in respiratorysamples during the actue phase of infection. ID Date Data Source [id number] 04/29/2021 06:32:00 PM EDT [facility] TSYSORDER [id number] Name Value Range Interpretation Code Description Data Anastasiya rce(s) Supporting Document(s) TSH 5.797 uIU/mL 0.360-3.740 [facility] ID Date Data Source [id number] 04/29/2021 06:24:00 PM EDT [facility] TSYSORDER [id number] Name Value Range Interpretation Code Description Data Anastasiya rce(s) Supporting Document(s) MAGNESIUM 2.2 mg/dL 1.8-2.4 [facility] ID Date Data Source [id number] 04/29/2021 06:24:00 PM EDT [facility] TSYSORDER [id number] Name Value Range Interpretation Code Description Data Anastasiya rce(s) Supporting Document(s) TROPONIN-HIGH SENSITIVITY < 4.0 ng/L 0-60.4 [facility] ID Date Data Source [id number] 04/29/2021 06:24:00 PM EDT [facility] TSYSORDER [id number] Name Value Range Interpretation Code Description Data Anastasiya rce(s) Supporting Document(s) CREATINE PHOSPHOKINASE 45 U/L 26-192 [facility] ospital ID Date Data Source [id number] 04/29/2021 06:24:00 PM EDT [facility] TSYSORDER [id number] Name Value Range Interpretation Code Description Data Anastasiya rce(s) Supporting Document(s) LIPASE 187 U/L 73-393 [facility] ID Date Data Source [id number] 04/29/2021 06:24:00 PM EDT [facility] TSYSORDER [id number] Name Value Range Interpretation Code Description Data Anastasiya rce(s) Supporting Document(s) GLUCOSE 170 mg/dL 74-[address] [facility] BLOOD UREA NITROGEN 11 mg/dL 7-18 [facility] ital CREATININE 0.68 mg/dL 0.6-1.0 [facility] SODIUM 136 mmol/L 136-145 [facility] POTASSIUM 3.9 mmol/L 3.5-5.1 [facility] CHLORIDE 101 mmol/L 98-107 [facility] CO2 24 mmol/L 21-32 [facility] CALCIUM 9.2 mg/dL 8.5-10.1 [facility] ANION GAP 11.0 mmol/L 5-12 [facility] GLOMERULAR FILTRATION RATE >90 mL/min [facility] GFR IS CALCULATED IN mL/min/1.73m2 ABIEL L FUNCTION: >90MILDLY DECREASED: 60-89MILDY TO MODERATELY DECREASED: 45-59 MODERATELY TO SEVERELY DECREASED: 30-44SEVERELY DECREASED: 15-29RENAL FAILURE: <15 AST 16 U/L 15-37 [facility] ALT 44 U/L 12-78 [facility] ALKALINE PHOSPHATASE 94 U/L 46-116 [facility] pital TOTAL BILIRUBIN 0.6 mg/dL 0.2-1.0 [facility] TOTAL PROTEIN 7.3 g/dl 6.4-8.2 [facility] ALBUMIN 3.8 gm/dL 3.4-5.0 [facility] ID Date Data Source [id number] 04/29/2021 06:19:00 PM EDT [facility] l TSYSORDER [id number] Name Value Range Interpretation Code Description Data Anastasiya rce(s) Supporting Document(s) PARTIAL THROMBOPLASTIN TIME 23.6 SECONDS 21.2-27.3 [facility] ID Date Data Source [id number] 04/29/2021 06:19:00 PM EDT [facility] l TSYSORDER [id number] Name Value Range Interpretation Code Description Data Anastasiya rce(s) Supporting Document(s) PROTHROMBIN TIME (PATIENT) 9.2 SECONDS 9.1-11.6 [facility] INR 0.88 0.87-1.06 [facility] ID Date Data Source [id number] 04/29/2021 06:02:00 PM EDT [facility] l TSYSORDER [id number] Name Value Range Interpretation Code Description Data Anastasiya rce(s) Supporting Document(s) WHITE BLOOD COUNT 9.6 K/mm3 4.0-10.0 [facility] RED BLOOD COUNT 4.37 M/mm3 4.00-5.50 [facility] l HEMOGLOBIN 13.9 gm/dL 12.0-16.0 [facility] HEMATOCRIT 39.4 % 36.0-48.8 [facility] MEAN CELL VOLUME 90.2 fl 80-96 [facility] MEAN CORPUSCULAR HEMOGLOBIN 31.8 pg 27.0-31.0 H [facility] MEAN CORPUSCULAR HGB CONC 35.3 g/dl 32.0-36.0 [facility] RED CELL DISTRIBUTION WIDTH 12.2 % 10.0-14.5 [facility] PLATELET COUNT 322 K/mm3 172-450 [facility] MEAN PLATELET VOLUME 9.7 fl 9.0-13.0 [facility] pital GRAN % 52.4 % 50-80.0 [facility] IG% 0.6 % 0.0-0.[address] [facility] LYMPH % 38.2 % 25.0-50.0 [facility] MONO % 6.7 % 2.0-10.0 [facility] EOS % 1.4 % 0-5.0 [facility] BASO % 0.7 % 0.0-2.0 [facility] GRAN # 5.0 K/mm3 2.0-8.00 [facility] IG# 0.1 K/mm3 0.0-0.2 [facility] LYMPH # 3.7 K/mm3 1.0-5.0 [facility] MONO # 0.6 K/mm3 0.10-1.20 [facility] EOS # 0.1 K/mm3 0.0-0.5 [facility] BASO # 0.1 K/mm3 0.0-0.2 [facility] ID Date Data Source [id number] 02/07/2021 05:24:00 PM EDT [facility] ([facility], [facility]) Name Value Range Interpretation Code Description Data Anastasiya rce(s) Supporting Document(s) Thyroid Stimulating Hormone 1.560 uIU/ML 0.358-3.740 [facility] ([facility], [facility]) Free T4 0.74 ng/dL 0.76-1.46 [facility] ([facility], [facility]) ID Date Data Source [id number] 02/07/2021 05:24:00 PM EDT [facility] ([facility]) Name Value Range Interpretation Code Description Data Anastasiya rce(s) Supporting Document(s) Glucose, Fasting 236 mg/dL 70-100 [facility] ([facility]) Blood Urea Nitrogen 16 mg/dL 7-18 [facility] ([facility]) Creatinine For GFR 0.65 mg/dL 0.55-1.30 [facility] ([facility]) Glomerular Filtration Rate Laboratory test result [facility] ([facility], [facility]) <content>Units are mL/min/1.73 m2</content>
<content></content>
<content>Chronic Kidney Disease Staging per NKF:</content>
<content></content>
<content>Stage I & II GFR >=60 Normal to Mildly Decreased</content>
<content>Stage III GFR 30- 59 Moderately Decreased</content>
<content>Stage IV GFR 15-29 Severely Decreased</content>
<content>Stage V GFR <15 Very Little GFR Left</content>
<content>ESRD GFR <15 on ENGINE REPAIRER [employer]ODUCTION</content>
<content></content> Sodium Level 136 meq/L 136-145 [facility] ([facility], [facility]) Carbon Dioxide Level 25 meq/L 21-32 [facility] ([facility]) Potassium Serum 3.8 meq/L 3.5-5.1 [facility] ([facility]) Chloride Level 103 meq/L 98-107 [facility] ([facility]) Anion Gap 8 meq/L 8-16 [facility] ([facility], [facility]) Calcium Level 8.5 mg/dL 8.5-10.1 [facility] ([facility], [facility]) Ast/Sgot 13 U/L 7-37 [facility] ([facility]) Alkaline Phosphatase 110 U/L 45-117 [facility] ([facility]) Alt/SGPT 42 U/L 12-78 [facility] ([facility]) Bilirubin,Total 0.4 mg/dL 0.2-1.0 [facility] ([facility] Albumin 3.7 GM/DL 3.2-5.2 [facility] ([facility] Albumin/Globulin Ratio 1.1 1.2-2.2 [facility] ([facility]) Total Protein 7.0 GM/DL 6.4-8.2 [facility] ([facility], [facility]) ID Date Data Source [id number] 02/07/2021 05:24:00 PM EDT [facility] ([facility], [facility]) Name Value Range Interpretation Code Description Data Anastasiya rce(s) Supporting Document(s) White Blood Count 10.0 10 4.0-10.0 [facility] ([facility], [facility]) Red Blood Count 4.44 10 4.00-5.40 [facility] ([facility], [facility]) Mean Corpuscular Volume 93.7 fl 80.0-96.0 M [facility] ([facility]) Hematocrit 41.6 % 36.0-47.0 [facility] ([facility] Hemoglobin 14.1 g/dL 12.0-15.5 [facility] ([facility] Mean Corpuscular HGB Conc 33.9 g/dL 32.0-36.5 [facility] ([facility], [facility]) Mean Corpuscular Hemoglobin 31.8 pg 27.0-33.0 [facility] ([facility], [facility]) Red Cell Distribution Width 12.2 % 11.5-14.5 [facility] ([facility], [facility]) Platelet Count, Automated 332 10 150-450 [facility] ([facility] Lymph % 34.2 % 24.0-44.0 [facility] ([facility]) Neutrophils % 56.1 % 36.0-66.0 [facility] ([facility]) Blaine % 6.2 % 2.0-8.0 [facility] ([facility], [facility]) Baso % 1.0 % 0.0-1.0 [facility] ([facility] gent Care, [facility]) Eos % 1.9 % 0.0-3.0 [facility] ([facility] gent [facility], [facility]) Nucleated Red Blood Cell % 0.0 % 0-0 [facility] ([facility], [facility]) Neutrophils # 5.6 10 1.5-8.5 [facility] ([facility], [facility]) Immature Granulocyte % 0.6 % 0-3.0 [facility] ([facility], [facility]) Lymph # 3.4 10 1.5-5.0 [facility] ([facility], [facility]) [place]aine # 0.6 10 0.0-0.8 [facility] ([facility], [facility]) Eos # 0.2 10 0.0-0.5 [facility] ([facility], [facility]) Baso # 0.1 10 0.0-0.2 [facility] ([facility], [facility]) ID Date Data Source [id number] 12/11/2020 04:04:00 PM EDT [facility] Patient: ALEJANDRA POLK [facility].VisitID: [id number] [place] [address] [phone], FRegistration Date/Time: 12/11/2020 09:09 Weight:80.7 kg (S). [...] every PM, last dose last night (depression/fiber myalgia).[place] Carbonate ER Oral (Tablet Extended Release 300 [...] e(s) Supporting Document(s) ID Date Data Source [id number] 12/11/2020 11:08:00 AM EDT [facility] l DATE OF EXAMINATION: 12/11/2020 9:41 EDT [...] rce(s) Supporting Document(s) ID Date Data Source [id number] 12/11/2020 10:18:00 AM EDT [facility] [id number] Name Value Range Interpretation Code Description Data Anastasiya rce(s) Supporting Document(s) GLUCOSE 274 mg/dL 74-[address] [facility] BLOOD UREA NITROGEN 12 mg/dL 7-18 [facility] ital CREATININE 0.70 mg/dL 0.6-1.0 [facility] SODIUM 134 mmol/L 136-[address] [facility] POTASSIUM 4.2 mmol/L 3.5-5.1 [facility] CHLORIDE 98 mmol/L 98-107 [facility] CO2 24 mmol/L 21-32 [facility] CALCIUM 9.6 mg/dL 8.5-10.1 [facility] ANION GAP 12.0 mmol/L 5-12 [facility] GLOMERULAR FILTRATION RATE >90 mL/min [facility] GFR IS CALCULATED IN mL/min/1.73m2 ABIEL L FUNCTION: >90MILDLY DECREASED: 60-89MILDY TO MODERATELY DECREASED: 45-59 MODERATELY TO SEVERELY DECREASED: 30-44SEVERELY DECREASED: 15-29RENAL FAILURE: <15 AST 13 U/L 15-37 [facility] ALT 40 U/L 12-78 [facility] ALKALINE PHOSPHATASE 106 U/L 46-116 [facility] pital TOTAL BILIRUBIN 0.7 mg/dL 0.2-1.0 [facility] TOTAL PROTEIN 7.7 g/dl 6.4-8.2 [facility] ALBUMIN 3.7 gm/dL 3.4-5.0 [facility] ID Date Data Source [id number] 12/11/2020 09:57:00 AM EDT [facility] TSYSORDER [id number] Name Value Range Interpretation Code Description Data Anastasiya rce(s) Supporting Document(s) URINE COLOR. YELLOW [facility] URINE APPEARANCE CLEAR [facility] l URINE GLUCOSE (UA) 500 mg/dL NEGATIVE H [facility] URINE BILIRUBIN NEGATIVE NEGATIVE [facility] URINE KETONE NEGATIVE mg/dL NEGATIVE [facility] SPECIFIC GRAVITY,URINE 1.020 1.005-1.030 [facility] URINE BLOOD NEGATIVE NEGATIVE [facility] PH,URINE 7.5 5.0-9.0 [facility] URINE PROTEIN NEGATIVE mg/dL NEGATIVE [facility] URINE UROBILINOGEN NORMAL(0.2-1) mg/dL 0-1 R [facility] URINE NITRATE NEGATIVE NEGATIVE [facility] URINE LEUKOCYTE ESTERASE NEGATIVE NEGATIVE [facility] ID Date Data Source [id number] 12/11/2020 09:55:00 AM EDT [facility] TSYSORDER [id number] Name Value Range Interpretation Code Description Data Anastasiya rce(s) Supporting Document(s) WHITE BLOOD COUNT 8.1 K/mm3 4.0-10.0 [facility] RED BLOOD COUNT 4.67 M/mm3 4.00-5.50 [facility] HEMOGLOBIN 14.6 gm/dL 12.0-16.0 [facility] HEMATOCRIT 42.3 % 36.0-48.8 [facility] MEAN CELL VOLUME 90.6 fl 80-96 [facility] MEAN CORPUSCULAR HEMOGLOBIN 31.3 pg 27.0-31.0 H [facility] MEAN CORPUSCULAR HGB CONC 34.5 g/dl 32.0-36.0 [facility] RED CELL DISTRIBUTION WIDTH 12.0 % 10.0-14.5 [facility] PLATELET COUNT 326 K/mm3 172-450 [facility] MEAN PLATELET VOLUME 9.9 fl 9.0-13.0 [facility] pital GRAN % 63.4 % 50-80.0 [facility] IG% 0.5 % 0.0-0.[address] [facility] LYMPH % 28.4 % 25.0-50.0 [facility] MONO % 5.3 % 2.0-10.0 [facility] EOS % 1.8 % 0-5.0 [facility] BASO % 0.6 % 0.0-2.0 [facility] GRAN # 5.1 K/mm3 2.0-8.00 [facility] IG# 0.0 K/mm3 0.0-0.2 [facility] LYMPH # 2.3 K/mm3 1.0-5.0 [facility] MONO # 0.4 K/mm3 0.10-1.20 [facility] EOS # 0.2 K/mm3 0.0-0.5 [facility] BASO # 0.1 K/mm3 0.0-0.2 [facility] ID Date Data Source [id number] 12/11/2020 09:12:00 AM EDT [facility] Name Value Range Interpretation Code Description Data Anastasiya rce(s) Supporting Document(s) COVID-19 NEGATIVE [facility] and reported by [facility]. ID Date Data Source [id number] 12/11/2020 09:39:00 AM EDT [facility] [id number] Name Value Range Interpretation Code Description Data Anastasiya rce(s) Supporting Document(s) COVID-[address] [facility] Negative results should be treated as pr [...] are for the indentification of SARS-CoV-2 RNA. BwlYJAM-[id number] RNA is generally detectable in respiratorysamples during the actue phase of infection. ID Date Data Source [id number] 12/09/2020 02:30:00 PM [facility]T [facility] Name Value Range Interpretation Code Description Data Anastasiya rce(s) Supporting Document(s) SARS COV2 TRP Not Detected [facility] and reported by [facility]. ID Date Data Source [id number] 12/09/2020 03:31:00 PM EDT [facility] Name Value Range Interpretation Code Description Data Anastasiya rce(s) Supporting Document(s) Adenovirus Not Detected Detected [facility] Coronavirus 229E Not Detected [facility]ed [facility] HKU1 Not Detected Detected Not [facility] Coronavirus NL63 Not Detected Detected Not R [facility] Coronavirus OC43 Not Detected Detected Not R [facility] Sars Cov 2 Not Detected Detected [facility] Negative results do not preclude SARS-Co V-2 infection andshould not be used as the sole basis for treatment or otherpatient management decisions. Negative SARS-CoV-2 resultsmust be combined with clinical observations, patienthistory, and epidemiological information.The [employer] RP2 COVID-19 test is only for use under the Food and Drug Administration's EmergencyUse Authorization. Human Metapneumovirus Not Detected Detected Not [facility] Human Rhinovirus Not Detected Detected Not [facility] Influenza A Not Detected Detected Not [facility] Influenza B Not Detected Detected Not [facility] Parainfluenza Virus [address] Not [address] Detected Not [facility] Parainfluenza Virus [address] Not [address] Detected Not [facility] Parainfluenza Virus [address] [facility] Parainfluenza Virus [address] [facility] Respiratory Syncytial Virus Not Detected Detected Not [facility]. [facility] Bordetella parapertus ([id number]) Not Detected Detected Not [facility] Bordetella pertussis (ptxP) Not Detected Detected Not [facility] Chlamydia pneumoniae Not Detected Detected Not [facility] Mycoplasma pneumoniae Not Detected Detected [facility] The results of the respiratory panel dax [...] results have been determined by using the [employer] system.[employer] is an automated in vitro diagnostic system thatutilizes nested multiplex Polymerase Chain Reaction (PCR)and high-resolution melting analysis to detect and identifymultiple nucleic acid targets from clinical specimens. ID Date Data Source DataSphere Respiratory Panel 12/09/2020 12:00:00 AM EDT eCW1 ([facility]) Name Value Range Interpretation Code Description Data Anastasiya rce(s) Supporting Document(s) Not Detected Not Adenovirus eCW1 ([facility]) Not Detected Not Coronavirus NL63 eCW1 ( [facility]) Not Detected Not Coronavirus HKU1 eCW1 ( [facility]) Not Detected Not Coronavirus 229E eCW1 ( [facility]) Not Detected Not Coronavirus OC43 eCW1 ( [facility]) Not Detected Not Human Rhinovirus eCW1 ( [facility]) Not Detected Not Human Metapneumovirus e CW1 ([facility]) Not Detected Not Sars Cov 2 eCW1 ([facility]) Not Detected Not Parainfluenza Virus 1 e CW1 ([facility]) Not Detected Not Parainfluenza Virus 2 e CW1 ([facility]) Not Detected Not Parainfluenza Virus 3 e CW1 ([facility]) Not Detected Not Influenza A eCW1 ([facility]) Not Detected Not Influenza B eCW1 ([facility]) Not Detected Not Bordetella parapertus ( [id number]) eCW1 ([facility]) Not Detected Not Bordetella pertussis (p txP) eCW1 ([facility]) Not Detected Not Parainfluenza Virus 4 e CW1 ([facility]) Not Detected Not Respiratory Syncytial V irus eCW1 ([facility]) Not Detected Not Chlamydia pneumoniae eC W1 ([facility]) Not Detected Not Mycoplasma pneumoniae e CW1 ([facility]) ID Date Data Source [id number] 10/30/2020 05:51:00 PM EST [facility] Patient: ALEJANDRA POLK Observation R eport - [facility], [facility].VisitID: [id number] [place] [address] [phone], FRegistration Date/Time: 10/30/2020 12:31 Weight:79.3 kg (S). [...] every PM, last dose last night (depression/fiber myalgia).[place] Carbonate ER Oral (Tablet Extended Release 300 [...] rce(s) Supporting Document(s) ID Date Data Source [id number] 10/30/2020 03:39:00 PM EST [facility] [...] rce(s) Supporting Document(s) ID Date Data Source [id number] 10/30/2020 01:49:00 PM EST [facility] l TSYSORDER [id number] Name Value Range Interpretation Code Description Data Anastasiya rce(s) Supporting Document(s) MAGNESIUM 1.9 mg/dL 1.8-2.4 [facility] ID Date Data Source [id number] 10/30/2020 01:49:00 PM EST [facility] l TSYSORDER [id number] Name Value Range Interpretation Code Description Data Anastasiya rce(s) Supporting Document(s) LIPASE 125 U/L 73-393 [facility] ID Date Data Source [id number] 10/30/2020 01:49:00 PM EST [facility] l TSYSORDER [id number] Name Value Range Interpretation Code Description Data Anastasiya rce(s) Supporting Document(s) GLUCOSE 165 mg/dL 74-[address] [facility] BLOOD UREA NITROGEN 14 mg/dL 7-18 [facility] ital CREATININE 0.71 mg/dL 0.6-1.0 [facility] SODIUM 134 mmol/L 136-[address] [facility] POTASSIUM 3.9 mmol/L 3.5-5.1 [facility] CHLORIDE 99 mmol/L 98-107 [facility] CO2 24 mmol/L 21-32 [facility] CALCIUM 9.5 mg/dL 8.5-10.1 [facility] ANION GAP 11.0 mmol/L 5-12 [facility] GLOMERULAR FILTRATION RATE >90 mL/min [facility] GFR IS CALCULATED IN mL/min/1.73m2 ABIEL L FUNCTION: >90MILDLY DECREASED: 60-89MILDY TO MODERATELY DECREASED: 45-59 MODERATELY TO SEVERELY DECREASED: 30-44SEVERELY DECREASED: 15-29RENAL FAILURE: <15 AST 12 U/L 15-[address] [facility] ALT 28 U/L 12-78 [facility] ALKALINE PHOSPHATASE 101 U/L 46-116 [facility] pital TOTAL BILIRUBIN 0.7 mg/dL 0.2-1.0 [facility] TOTAL PROTEIN 7.7 g/dl 6.4-8.2 [facility] ALBUMIN 4.0 gm/dL 3.4-5.0 [facility] ID Date Data Source [id number] 10/30/2020 01:48:00 PM [facility] TSYSORDER [id number] Name Value Range Interpretation Code Description Data Anastasiya rce(s) Supporting Document(s) PARTIAL THROMBOPLASTIN TIME 23.4 SECONDS 21.2-27.3 [facility] ID Date Data Source [id number] 10/30/2020 01:48:00 PM [facility] TSYSORDER [id number] Name Value Range Interpretation Code Description Data Anastasiya rce(s) Supporting Document(s) PROTHROMBIN TIME (PATIENT) 9.2 SECONDS 9.1-11.6 [facility] INR 0.88 0.87-1.06 [facility] ID Date Data Source [id number] 10/30/2020 01:31:00 PM [facility] TSYSORDER [id number] Name Value Range Interpretation Code Description Data Anastasiya rce(s) Supporting Document(s) WHITE BLOOD COUNT 11.0 K/mm3 4.0-10.0 H [facility] kirit RED BLOOD COUNT 4.54 M/mm3 4.00-5.50 [facility] HEMOGLOBIN 14.2 gm/dL 12.0-16.0 [facility] HEMATOCRIT 40.6 % 36.0-48.8 [facility] MEAN CELL VOLUME 89.4 fl 80-96 [facility] MEAN CORPUSCULAR HEMOGLOBIN 31.3 pg 27.0-31.0 H [facility] MEAN CORPUSCULAR HGB CONC 35.0 g/dl 32.0-36.0 Man [facility] RED CELL DISTRIBUTION WIDTH 12.2 % 10.0-14.5 [facility] PLATELET COUNT 302 K/mm3 172-450 [facility] MEAN PLATELET VOLUME 9.7 fl 9.0-13.0 [facility] pital GRAN % 63.2 % 50-80.0 [facility] IG% 0.3 % 0.0-0.[address] [facility] LYMPH % 29.6 % 25.0-50.0 [facility] MONO % 5.8 % 2.0-10.0 [facility] EOS % 0.6 % 0-5.0 [facility] BASO % 0.5 % 0.0-2.0 [facility] GRAN # 6.9 K/mm3 2.0-8.00 [facility] IG# 0.0 K/mm3 0.0-0.2 [facility] LYMPH # 3.3 K/mm3 1.0-5.0 [facility] MONO # 0.6 K/mm3 0.10-1.20 [facility] EOS # 0.1 K/mm3 0.0-0.5 [facility] BASO # 0.1 K/mm3 0.0-0.2 [facility] ID Date Data Source [id number] 10/30/2020 01:33:00 PM EST [facility] TSYSORDER [id number] Name Value Range Interpretation Code Description Data Anastasiya rce(s) Supporting Document(s) URINE COLOR. [facility] URINE APPEARANCE SLIGHTY CLOUDY [facility] URINE GLUCOSE (UA) 1000 mg/dL NEGATIVE H [facility] ital URINE BILIRUBIN NEGATIVE NEGATIVE [facility] URINE KETONE NEGATIVE mg/dL NEGATIVE [facility] SPECIFIC GRAVITY,URINE 1.010 1.001-1.035 [facility] URINE BLOOD NEGATIVE NEGATIVE [facility] PH,URINE 5.5 5.0-9.0 [facility] URINE PROTEIN NEGATIVE mg/dL NEGATIVE [facility] UR[facility] UROBILINOGEN NORMAL(0.2-1) mg/dL 0-1 R [facility] URINE NITRATE NEGATIVE NEGATIVE [facility] URINE LEUKOCYTE ESTERASE NEGATIVE NEGATIVE [facility] ID Date Data Source [id number] 10/30/2020 12:52:00 PM EST [facility] TSYSORDER [id number] Name Value Range Interpretation Code Description Data Anastasiya rce(s) Supporting Document(s) HCG URINE NEGATIVE NEGATIVE [facility] ID Date Data Source [id number] 07/19/2020 06:46:00 PM EDT [facility] Patient: ALEJANDRA POLK Observation R [facility] - [facility].VisitID: [id number] [place] [address] [phone], FRegistration Date/Time: 07/19/2020 16:28 Weight:82.1 kg (S). [...] 10 mg) 1 tablet, last dose last night.[place] Carbonate ER Oral (Tablet Extended Release 300 [...] rce(s) Supporting Document(s) ID Date Data Source [id number] 07/19/2020 06:43:00 PM EDT [facility] Patient: ALEJANDRA POLK El[facility] R [facility] - [facility] HospitalVisitID: [id number] [place] [address] [phone], FRegistration Date/Time: 07/19/2020 16:28 Weight:82.1 kg (S). [...] 10 mg) 1 tablet, last dose last night.[place] Carbonate ER Oral (Tablet Extended Release 300 [...] 07/19/2020 18:21) Addenda for ALEJANDRA POLK VisitID: [id number] Date: 07/19/2020 07/19/2020 18:33Chart review Pharmacy called [...] Current Smoker completed Curre nt Smoker eCW1 ([facility]) Smoking 05/27/2021 12:00:00 AM EDT Current Smoker completed Curre nt Smoker eCW1 ([facility]) Smoking 05/27/2021 12:00:00 AM EDT Current Smoker completed Curre nt Smoker eCW1 ([facility]) Smoking 05/27/2021 12:00:00 AM EDT Current Smoker completed Curre nt Smoker eCW1 ([facility]) Smoking 02/20/2021 12:00:00 AM EDT Current Smoker completed Curre nt Smoker eCW1 ([facility]) Smoking 02/20/2021 12:00:00 AM EDT Current Smoker completed Curre nt Smoker eCW1 ([facility]) Smoking 02/20/2021 12:00:00 AM EDT Current Smoker completed Curre nt Smoker eCW1 ([facility]) Smoking 12/09/2020 12:00:00 AM EDT Current Smoker completed Curre nt Smoker eCW1 ([facility]) Smoking 12/09/2020 12:00:00 AM EDT Current Smoker completed Curre nt Smoker eCW1 ([facility]) Smoking 10/01/2020 12:00:00 AM EST Current Smoker completed Curre nt Smoker eCW1 ([facility]) Smoking 10/01/2020 12:00:00 AM EST Current Smoker completed Curre nt Smoker eCW1 ([facility]) Smoking 10/01/2020 12:00:00 AM EST Current Smoker completed Curre nt Smoker eCW1 ([facility]) Smoking 10/01/2020 12:00:00 AM EST Current Smoker completed Curre nt Smoker eCW1 ([facility]) Smoking 10/01/2020 12:00:00 AM EST Current Smoker completed Curre nt Smoker eCW1 ([facility]) Smoking 10/01/2020 12:00:00 AM EST Current Smoker completed Curre nt Smoker eCW1 ([facility]) Smoking 10/01/2020 12:00:00 AM EST Current Smoker completed Curre nt Smoker eCW1 ([facility]) Smoking 10/01/2020 12:00:00 AM EST Current Smoker completed Curre nt Smoker eCW1 ([facility]) Smoking 10/01/2020 12:00:00 AM EST Current Smoker completed Curre nt Smoker eCW1 ([facility]) Smoking 10/01/2020 12:00:00 AM EST Current Smoker completed Curre nt Smoker eCW1 ([facility]) Smoking 10/01/2020 12:00:00 AM EST Current Smoker completed Curre nt Smoker eCW1 ([facility]) Vital Signs ID Date Data Source [id number] Name Value Range Interpretation Code Description Data Source(s) Body temperature 97.7 [degF] 97.7 [degF] [facility] ([facility]) Diastolic blood pressure 86 mm[Hg] 86 mm[Hg] [facility] ([facility]) Heart rate 104 /min 104 /min [facility] ([facility]) Body weight 180.00 [lb_av] 180.00 [lb_av] MEDEN T ([facility]) Respiratory rate 16 /min 16 /min [facility] ( [facility]) Oxygen saturation in Arterial blood by Pulse oximetry 98 % 98 % [facility] ([facility]) Body height 60 [in_i] 60 [in_i] [facility] ([facility]) 5'0" Body mass index (BMI) [Ratio] 35.1 kg/m2 35.1 k g/m2 [facility] ([facility]) Systolic blood pressure 123 mm[Hg] 123 mm[Hg] M EDENT ([facility]) Body weight 178 [lb_av] 178 [lb_av] eCW1 ([facility]) Body height 62 [in_i] 62 [in_i] W1 ([facility]) Diastolic blood pressure 78 mm[Hg] 78 mm[Hg] eCW1 ([facility]) Body mass index (BMI) [Ratio] 32.55 kg/m2 32.55 kg/m2 [facility] ([facility]) Heart rate 98 /min 98 /min eCW1 ([facility]) Respiratory rate 18 /min 18 /min eCW1 ([facility]) Body temperature 98.6 [degF] 98.6 [degF] eCW1 ( [facility]) Systolic blood pressure 115 mm[Hg] 115 mm[Hg] e CW1 ([facility]) Body weight 180.12 [lb_av] 180.12 [lb_av] eCW1 ([facility]) Body height 62 [in_i] 62 [in_i] eCW1 ([facility]) Body mass index (BMI) [Ratio] 32.94 kg/m2 32.94 kg/m2 eCW1 ([facility]) Heart rate 99 /min 99 /min eCW1 ([facility]) Respiratory rate 16 /min 16 /min eCW1 ([facility]) Body temperature 97.1 [degF] 97.1 [degF] eCW1 ( [facility]) Systolic blood pressure 110 mm[Hg] 110 mm[Hg] e CW1 ([facility]) Diastolic blood pressure 75 mm[Hg] 75 mm[Hg] eCW1 ([facility]) Oxygen saturation in Arterial blood by Pulse oximetry 97 % 97 % MEDENT ([facility], [facility]) Heart rate 99 /min 99 /min MEDENT ([facility], [facility]) Systolic blood pressure 122 mm[Hg] 122 mm[Hg] M EDENT ([facility], [facility]) Diastolic blood pressure 85 mm[Hg] 85 mm[Hg] MEDENT ([facility], [facility]) Body weight 180.00 [lb_av] 180.00 [lb_av] MEDEN T ([facility], [facility]) Respiratory rate 16 /min 16 /min MEDENT ( [facility], [facility]) Body temperature 98.4 [degF] 98.4 [degF] MEDENT ([facility], [facility]) Body height 62 [in_i] 62 [in_i] MEDENT ([facility], [facility]) 5'2" Body mass index (BMI) [Ratio] 32.9 kg/m2 32.9 k g/m2 MEDENT ([facility], [facility]) Body height 62 [in_i] 62 [in_i] eCW1 ([facility]) Body weight 178 [lb_av] 178 [lb_av] eCW1 ([facility]) Body mass index (BMI) [Ratio] 32.55 kg/m2 32.55 kg/m2 eCW1 ([facility]) Body temperature 97.9 [degF] 97.9 [degF] eCW1 ( [facility]) Heart rate 113 /min 113 /min eCW1 ([facility]) Respiratory rate 17 /min 17 /min eCW1 ([facility]) Oxygen saturation in Arterial blood by Pulse oximetry 98 % 98 % eCW1 ([facility]) Body weight 176 [lb_av] 176 [lb_av] eCW1 ([facility]) Body height 62 [in_i] 62 [in_i] eCW1 ([facility]) Body mass index (BMI) [Ratio] 32.19 kg/m2 32.19 kg/m2 eCW1 ([facility]) Heart rate 96 /min 96 /min eCW1 ([facility]) Respiratory rate 18 /min 18 /min eCW1 ([facility]) Body temperature 97.2 [degF] 97.2 [degF] eCW1 ( [facility]) Systolic blood pressure 110 mm[Hg] 110 mm[Hg] e CW1 ([facility]) Diastolic blood pressure 65 mm[Hg] 65 mm[Hg] eCW1 ([facility]) Systolic blood pressure 115 mm[Hg] 115 mm[Hg] M EDENT ([facility]) Diastolic blood pressure 80 mm[Hg] 80 mm[Hg] MEDENT ([facility]) Heart rate 96 /min 96 /min MEDENT ([facility]) Respiratory rate 16 /min 16 /min MEDENT ( [facility], [facility]) Oxygen saturation in Arterial blood by Pulse oximetry 98 % 98 % MEDENT ([facility], [facility]) Body temperature 98.4 [degF] 98.4 [degF] MEDENT ([facility], [facility]) Body weight 184.00 [lb_av] 184.00 [lb_av] MEDEN T ([facility], [facility]) Body height 62 [in_i] 62 [in_i] MEDENT ([facility], [facility]) 5'2" Body mass index (BMI) [Ratio] 33.7 kg/m2 33.7 k g/m2 MEDENT ([facility], [facility]) Diastolic blood pressure 80 mm[Hg] 80 mm[Hg] ASHLEE ([facility]) Systolic blood pressure 140 mm[Hg] 140 mm[Hg] A THENA ([facility]) Body height 62 [in_i] 62 [in_i] ASHLEE ([facility]) Diastolic blood pressure 80 mm[Hg] 80 mm[Hg] ASHLEE ([facility]) Body height 62 [in_i] 62 [in_i] ASHLEE ([facility]) Systolic blood pressure 140 mm[Hg] 140 mm[Hg] A THENA ([facility]) Systolic blood pressure 112 mm[Hg] 112 mm[Hg] M EDENT ([facility], [facility]) Diastolic blood pressure 77 mm[Hg] 77 mm[Hg] MEDENT ([facility], [facility]) Heart rate 102 /min 102 /min MEDENT ([facility], [facility]) Respiratory rate 14 /min 14 /min MEDENT ( [facility], [facility]) Oxygen saturation in Arterial blood by Pulse oximetry 95 % 95 % MEDENT ([facility], [facility]) Body temperature 98.6 [degF] 98.6 [degF] MEDENT ([facility], [facility]) Body height 62 [in_i] 62 [in_i] MEDENT ([facility], [facility]) 5'2" Body mass index (BMI) [Ratio] 33.7 kg/m2 33.7 k g/m2 MEDENT ([facility], [facility]) Body weight 184.00 [lb_av] 184.00 [lb_av] MEDJAMARCUS T ([facility], [facility]) Patient Treatment Plan of Care Planned Activity Planned Date Details Description Data Source (s) Arina ODT 4 MG 08/05/2021 12:00:00 AM EST eCW1 ([facility]) NITROFURANTOIN, MACROCRYSTALS 25 MG / Ni trofurantoin, Monohydrate 75 MG Oral Capsule [Macrobid] 08/05/2021 12:00:00 AM EST eC W1 ([facility]) EPINEPHrine 0.3 MG/0.3ML 05/28/2021 12:00:00 AM EDT eCW1 ([facility]) EPINEPHrine 0.3 MG/0.3ML 05/28/2021 12:00:00 AM EDT eCW1 ([facility]) Linagliptin 5 MG Oral Tablet [Tradjenta] 02/20/2021 12:00:00 AM EDT eCW1 ([facility]) Linagliptin 5 MG Oral Tablet [Tradjenta] 02/20/2021 12:00:00 AM EDT eCW1 ([facility]) Linagliptin 5 MG Oral Tablet [Tradjenta] 02/20/2021 12:00:00 AM EDT eCW1 ([facility]) [facility] - 02/06/2021 12:00:00 AM EDT eCW1 ([facility]) [facility] - 02/06/2021 12:00:00 AM EDT eCW1 ([facility]) [facility] - 02/06/2021 12:00:00 AM EDT eCW1 ([facility]) [facility] - 02/06/2021 12:00:00 AM EDT eCW1 ([facility]) [facility] - 02/06/2021 12:00:00 AM EDT eCW1 ([facility]) [facility] - 02/06/2021 12:00:00 AM EDT eCW1 ([facility]) cannabidiol (CBD) oral oil Take as needed by oral rout e. 07/18/2019 12:00:00 AM EDT ASHLEE ([facility]) cannabidiol (CBD) oral oil Take as needed by oral rout e. 07/18/2019 12:00:00 AM EDT ASHLEE ([facility]) Amoxicillin 875 MG / Clavulanate 125 MG Oral Tablet ASHLEE ([facility]) alpha lipoic acid one by mouth once daily ASHLEE ([facility]) Vitamin C one by mouth once daily ASHLEE ([facility]) topiramate 25 MG Oral Tablet ASHLEE ([facility]) Sucralfate 1000 MG Oral Tablet ASHLEE ([facility]) Steglatro 5 mg tablet ASHLEE ([facility]) Prednisone 10 MG Oral Tablet ASHLEE ([facility]) Lantus Solostar U-100 Insulin 35 units every day ASHLEE ([facility]) Acetaminophen 325 MG / Hydrocodone Bitartrate 5 MG Oral Tablet ASHLEE ([facility]) Gemfibrozil 600 MG Oral Tablet ASHLEE ([facility]) Fluconazole 150 MG Oral Tablet ASHLEE ([facility]) Escitalopram 20 MG Oral Tablet ASHLEE ([facility]) Cephalexin 500 MG Oral Capsule ASHLEE ([facility]) celecoxib 200 MG Oral Capsule ASHLEE ([facility]) Budesonide 3 MG Delayed Release Oral Capsule ASHLEE ([facility]) benzonatate 100 MG Oral Capsule ASHLEE ([facility]) Amoxicillin 875 MG / Clavulanate 125 MG Oral Tablet ASHLEE ([facility]) alpha lipoic acid one by mouth once daily ASHLEE ([facility]) Vitamin C one by mouth once daily ASHLEE ([facility]) topiramate 25 MG Oral Tablet ASHLEE ([facility]) Sucralfate 1000 MG Oral Tablet ASHLEE ([facility]) Steglatro 5 mg tablet ASHLEE ([facility]) Prednisone 10 MG Oral Tablet ASHLEE ([facility]) Lantus Solostar U-100 Insulin 35 units every day ASHLEE ([facility]) Gemfibrozil 600 MG Oral Tablet ASHLEE ([facility]) Fluconazole 150 MG Oral Tablet ASHLEE ([facility]) Escitalopram 20 MG Oral Tablet ASHLEE ([facility]) Cephalexin 500 MG Oral Capsule ASHLEE ([facility]) celecoxib 200 MG Oral Capsule ASHLEE ([facility]) Budesonide 3 MG Delayed Release Oral Capsule ASHLEE ([facility]) benzonatate 100 MG Oral Capsule ASHLEE ([facility])
[2021-08-06 08:29] LABS: BASO # 0.1 10^3/uL (0.0-0.2); BASO % 0.9 % (0.0-1.0); EOS # 0.1 10^3/uL (0.0-0.5); EOS % 1.5 % (0.0-3.0); HEMATOCRIT 42.2 % (36.0-47.0); HEMOGLOBIN 14.4 g/dl (12.0-15.5); LYMPH # 2.2 10^3/uL (1.5-5.0); LYMPH % 24.6 % (24.0-44.0); MEAN CORPUSCULAR HEMOGLOBIN 32.1 pg (27.0-33.0); MEAN CORPUSCULAR HGB CONC 34.1 g/dl (32.0-36.5); MEAN CORPUSCULAR VOLUME 94.2 fl (80.0-96.0); MONO # 0.6 10^3/uL (0.0-0.8); MONO % 7.2 % (2.0-8.0); NEUTROPHILS # 5.8 10^3/uL (1.5-8.5); NEUTROPHILS % 65.2 % (36.0-66.0); PLATELET COUNT, AUTOMATED 325 10^3/uL (150-450); RED BLOOD COUNT 4.48 10^6/uL (4.00-5.40); WHITE BLOOD COUNT 8.9 10^3/uL (4.0-10.0)
[2021-08-06] MEDS ORDERED: ISOVUE-370 76% 100ML VIAL As Ordered ONE (08:45)
[2021-08-06 09:01] LABS: ALBUMIN 3.7 GM/DL (3.2-5.2); BILIRUBIN,DIRECT 0.1 MG/DL (0.0-0.2); BILIRUBIN,TOTAL 0.5 MG/DL (0.2-1.0); TOTAL PROTEIN 7.1 GM/DL (6.4-8.2)
[2021-08-06 09:15] LABS: HEMOGLOBIN A1c 8.3 %
[2021-08-06 09:33] LABS: ACETONE/KETONE 3.49 MG/DL (<2.81)
[2021-08-06 09:41] LABS: VENOUS BASE EXCESS -7.2 (-2.0-2.0); VENOUS HCO3 17.7 MEQ/L (23.0-27.0); VENOUS O2 SATURATION 87.1 % (60.0-80.0); VENOUS PARTIAL PRESSURE CO2 34.1 mmHg (38.0-50.0); VENOUS PH 7.333 UNITS (7.330-7.430); VENOUS STANDARD HCO3 18.4 MEQ/L; VENOUS TOTAL CO2 18.7 MEQ/L (24.0-28.0)
--- NOTE | 2021-08-06 10:03 | REP ---
INDICATION: abdominal pain/HX crohns. COMPARISON: 11/30/2013 TECHNIQUE: Axial contrast-enhanced images from the lung bases to the pubic symphysis using 100 cc Isovue 370 intravenous contrast material. Coronal and sagittal reformations obtained. This CT examination was performed using the following dose reduction techniques: Automated exposure control, adjustment of mA and/or kv according to the patient's size, and the use of iterative reconstruction technique. FINDINGS: Liver demonstrates fatty infiltration without focal hepatic lesion. Spleen, pancreas, gallbladder, bilateral adrenal glands and kidneys are normal. The enteric system including stomach, small, and large bowel appears normal. No evidence for obstruction or acute inflammatory process. Normal terminal ileum and appendix are identified in the right lower quadrant. Scattered sigmoid diverticulosis noted without acute diverticulitis. Pelvis demonstrates normal bladder and prior hysterectomy. No ascites. No free air. No intraperitoneal or retroperitoneal adenopathy. Abdominal aorta and vasculature appear normal. Musculoskeletal structures are intact and without acute osseous abnormality. IMPRESSION: No acute abdominopelvic pathology appreciated. Hepatosteatosis <Electronically signed by Vargas Newell > 08/06/21 [id number]
--- NOTE | 2021-08-06 12:00 | REP ---
INDICATION: pelvic pain COMPARISON: None. TECHNIQUE: Transabdominal pelvic ultrasound with color Doppler evaluation of the ovaries. FINDINGS: Bladder is unremarkable and measures approximately 7.5 x 7.1 x 5.0 cm. Patient is noted to be status post hysterectomy. No pelvic mass or fluid collection identified. Bilateral ovaries are normal in appearance and vascularity without evidence for torsion. Right ovary measures 3.2 x 1.7 x 2.4 cm; R I = 0.62. Left ovary measures 4.5 x 1.9 x 3.0 cm; R I = 0.52. IMPRESSION: Prior hysterectomy. Normal bilateral ovaries. <Electronically signed by Vargas Newell > 08/06/21 [id number]
[2021-08-06 12:22] LABS: GC DNA AMPLIFICATION NEGATIVE (NEGATIVE)
[2021-08-06 14:44] VITALS: BP 119/59
== END 2021-08-06 14:34 | disposition home or self-care (01) ==
LOC: M ED 07:09
DX: E11.65 Type 2 diabetes mellitus with hyperglycemia (principal); R74.02 Elevation of levels of lactic acid dehydrogenase [LDH]; E86.0 Dehydration; E78.5 Hyperlipidemia, unspecified; F17.200 Nicotine dependence, unspecified, uncomplicated; J45.909 Unspecified asthma, uncomplicated; Z90.710 Acquired absence of both cervix and uterus
CPT/HCPCS: 36415; 74177; 76856; 80047; 80076; 81001; 82010; 82803; 83036; 83605; 83690; 83930; 85025; 87210; 87661; 96374; 96375; 99284; J1885; J2405; Q9967

== ENCOUNTER → 2021-10-02 | Outpatient (REF) | payer BC ==
[~2021-10-02] MED LIST changes: +CYMB60CA4 PO; -LISI-898; +LISI5TAB11; +NITR100C2
[2021-10-02 12:05] LABS: BASO # 0.1 10^3/uL (0.0-0.2); BASO % 0.8 % (0.0-1.0); EOS # 0.2 10^3/uL (0.0-0.5); EOS % 1.5 % (0.0-3.0); HEMATOCRIT 45.3 % (36.0-47.0); HEMOGLOBIN 15.1 g/dl (12.0-15.5); LYMPH # 3.3 10^3/uL (1.5-5.0); LYMPH % 23.6 % (24.0-44.0); MEAN CORPUSCULAR HEMOGLOBIN 31.5 pg (27.0-33.0); MEAN CORPUSCULAR HGB CONC 33.3 g/dl (32.0-36.5); MEAN CORPUSCULAR VOLUME 94.6 fl (80.0-96.0); MONO # 0.9 10^3/uL (0.0-0.8); MONO % 6.8 % (2.0-8.0); NEUTROPHILS # 9.2 10^3/uL (1.5-8.5); NEUTROPHILS % 66.9 % (36.0-66.0); PLATELET COUNT, AUTOMATED 318 10^3/uL (150-450); RED BLOOD COUNT 4.79 10^6/uL (4.00-5.40); WHITE BLOOD COUNT 13.8 10^3/uL (4.0-10.0)
[2021-10-02 12:24] LABS: HEMOGLOBIN A1c 9.5 %
[2021-10-02 12:35] LABS: ALBUMIN 4.1 GM/DL (3.2-5.2); ALT/SGPT 34 U/L (12-78); BILIRUBIN,TOTAL 0.7 MG/DL (0.2-1.0); BLOOD UREA NITROGEN 14 MG/DL (7-18); CALCIUM LEVEL 9.8 MG/DL (8.5-10.1); CARBON DIOXIDE LEVEL 24 MEQ/L (21-32); CHLORIDE LEVEL 106 MEQ/L (98-107); CHOLESTEROL LEVEL 156 MG/DL (<200); CHOLESTEROL RISK RATIO 3.804 (<5); CREATININE FOR GFR 0.72 MG/DL (0.55-1.30); FREE T4 0.88 NG/DL (0.76-1.46); GLOMERULAR FILTRATION RATE > 60.0 (>60); GLUCOSE, FASTING 260 MG/DL (70-100); HDL CHOLESTEROL 41 MG/DL (>40); LDL CHOLESTEROL 66 MG/DL (<100); NON-HDL-C 115 MG/DL; POTASSIUM SERUM 4.4 MEQ/L (3.5-5.1); SODIUM LEVEL 138 MEQ/L (136-145); TOTAL PROTEIN 7.4 GM/DL (6.4-8.2); TRIGLYCERIDES LEVEL 243 MG/DL (<150)
[2021-10-02 12:39] LABS: CREATININE, URINE 35.7 MG/DL; MALB URINE SIEMENS < 5.0 MG/L
== END ==
LOC: M SFHCCLAY 06:58
PROVIDERS: ATTEND Nurse Practitioner Family
DX: E78.5 Hyperlipidemia, unspecified (principal); K21.9 Gastro-esophageal reflux disease without esophagitis; F32.9 Major depressive disorder, single episode, unspecified; E55.9 Vitamin D deficiency, unspecified; E11.65 Type 2 diabetes mellitus with hyperglycemia

== ENCOUNTER → 2021-10-07 | Outpatient (REF) | payer BC ==
[~2021-10-07] MED LIST changes: +ATOR40TA75; +BENZ200C70 PO; +DOXE25CA; +DRIS50003 PO; +LEVO25TA5; +STEG15TA; +TOPI50TA9; +TRAD5TAB
== END ==
LOC: M SFHCCLAY 11:48
PROVIDERS: ATTEND Physician Assistant
DX: J02.9 Acute pharyngitis, unspecified (principal)

== ENCOUNTER 2021-12-03 13:07 | Emergency (ER) | payer BC ==
[~2021-12-03] VITALS: Ht 157.5 cm; Wt 83.6 kg
[~2021-12-03 13:07] MED LIST changes: -ONDA4TAB6 PO
[2021-12-03] MEDS ORDERED: NS 1,000 ML IV ONE (16:45)
[2021-12-03] MEDS ORDERED: ONDANSETRON 4MG/2ML VIAL IV ONE (17:35)
[2021-12-03 18:16] LABS: HEMATOCRIT 41.8 % (36.0-47.0); HEMOGLOBIN 14.4 g/dl (12.0-15.5); MEAN CORPUSCULAR HEMOGLOBIN 31.5 pg (27.0-33.0); MEAN CORPUSCULAR HGB CONC 34.4 g/dl (32.0-36.5); MEAN CORPUSCULAR VOLUME 91.5 fl (80.0-96.0); PLATELET COUNT, AUTOMATED 366 10^3/uL (150-450); RED BLOOD COUNT 4.57 10^6/uL (4.00-5.40); VENOUS BASE EXCESS -1.8 (-2.0-2.0); VENOUS PARTIAL PRESSURE CO2 39.2 mmHg (38.0-50.0); VENOUS PARTIAL PRESSURE O2 51.4 mmHg (30.0-50.0); VENOUS PH 7.386 UNITS (7.330-7.430); VENOUS STANDARD HCO3 22.8 MEQ/L; VENOUS TOTAL CO2 24.2 MEQ/L (24.0-28.0); WHITE BLOOD COUNT 9.8 10^3/uL (4.0-10.0)
[2021-12-03 18:30] LABS: APPEARANCE, URINE CLEAR (CLEAR); BACTERIA, URINE AUTO NEGATIVE (NEGATIVE); BILIRUBIN, URINE AUTO NEGATIVE (NEGATIVE); BLOOD, URINE BLOOD NEGATIVE (NEGATIVE); COLOR, URINE YELLOW (YELLOW); GLUCOSE, URINE (UA) AUTO 3+ mg/dL (NEGATIVE); KETONE, URINE AUTO NEGATIVE (NEGATIVE); LEUKOCYTE ESTERASE, URINE AUTO NEGATIVE (NEGATIVE); NITRITE, URINE AUTO NEGATIVE (NEGATIVE); PROTEIN, URINE AUTO NEGATIVE (NEGATIVE); RBC, URINE AUTO 0 /HPF (0-3); SQUAMOUS EPITHELIAL CELL UR AU 1 /HPF (0-6); UROBILINOGEN, URINE AUTO 0.2 mg/dL (0.0-2.0); WBC, URINE AUTO 0 /HPF (0-3)
[2021-12-03 18:44] LABS: ACETONE/KETONE 3.46 MG/DL (<2.81)
[2021-12-03 18:50] LABS: HCG, SERUM QUALITATIVE NEGATIVE (NEGATIVE)
[2021-12-03 18:58] LABS: ATYPICAL LYMPH 2 % (0-5); BASOPHILS 2 % (0-1); EOSINOPHILS 2 % (0-3); LYMPHOCYTES 43 % (16-44); MONOCYTES 4 % (0-5); NEUTROPHILS 47 % (28-66)
[2021-12-03 18:59] LABS: PLATELET ESTIMATE NORMAL (NORMAL)
[2021-12-03] MEDS ORDERED: ISOVUE-370 76% 100ML VIAL As Ordered ONE (19:08)
[2021-12-03 19:39] LABS: ERYTHROCYTE SEDIMENTATION RATE 58 mm/hr (0-20)
[2021-12-03 19:44] LABS: HEMOGLOBIN A1c 9.5 %
[2021-12-03] MEDS ORDERED: ONDA4TAB6 PO (20:24)
[2021-12-03 20:30] VITALS: BP 128/64
== END 2021-12-03 20:55 | disposition home or self-care (01) ==
LOC: M ED 13:07
DX: E11.65 Type 2 diabetes mellitus with hyperglycemia (principal); K76.0 Fatty (change of) liver, not elsewhere classified; E03.9 Hypothyroidism, unspecified; K21.9 Gastro-esophageal reflux disease without esophagitis; I47.1 Supraventricular tachycardia; Z79.899 Other long term (current) drug therapy; Z88.0 Allergy status to penicillin; Z88.1 Allergy status to other antibiotic agents; Z88.8 Allergy status to other drugs, medicaments and biological substances; Z91.030 Bee allergy status; F17.210 Nicotine dependence, cigarettes, uncomplicated
CPT/HCPCS: 74177; 80047; 81001; 82010; 82803; 83036; 84443; 84703; 85025; 85652; 96361; 96374; 99284; J2405; Q9967

== ENCOUNTER → 2021-12-03 | Outpatient (CLI) | payer BC ==
[~2021-12-03] MED LIST changes: +ONDA4TAB6 PO
== END ==
LOC: M CLY 10:58
PROVIDERS: ATTEND Nurse Practitioner Family
DX: R73.9 Hyperglycemia, unspecified (principal)

== ENCOUNTER → 2022-02-25 | Outpatient (REF) | payer BC ==
[~2022-02-25] MED LIST changes: +ONDA4TAB6 PO
== END ==
LOC: M SFHCCLAY 15:42
PROVIDERS: ATTEND Nurse Practitioner Family
DX: R52 Pain, unspecified (principal)

== ENCOUNTER → 2022-07-29 | Outpatient (CLI) | payer BC | LOC: M CLY 11:17 | PROVIDERS: ATTEND Nurse Practitioner Family | DX: M50.322 Other cervical disc degeneration at C5-C6 level (principal) ==

== ENCOUNTER → 2022-07-29 | Outpatient (REF) | payer BC ==
[2022-07-29 17:37] LABS: BASO # 0.1 10^3/uL (0.0-0.2); BASO % 0.9 % (0.0-1.0); EOS # 0.2 10^3/uL (0.0-0.5); EOS % 2.2 % (0.0-3.0); HEMATOCRIT 43.3 % (36.0-47.0); HEMOGLOBIN 14.4 g/dl (12.0-15.5); LYMPH # 3.5 10^3/uL (1.5-5.0); LYMPH % 32.4 % (24.0-44.0); MEAN CORPUSCULAR HEMOGLOBIN 31.9 pg (27.0-33.0); MEAN CORPUSCULAR HGB CONC 33.3 g/dl (32.0-36.5); MONO # 0.6 10^3/uL (0.0-0.8); MONO % 5.9 % (2.0-8.0); NEUTROPHILS # 6.3 10^3/uL (1.5-8.5); NEUTROPHILS % 58.1 % (36.0-66.0); PLATELET COUNT, AUTOMATED 315 10^3/uL (150-450); RED BLOOD COUNT 4.51 10^6/uL (4.00-5.40); WHITE BLOOD COUNT 10.9 10^3/uL (4.0-10.0)
[2022-07-29 18:33] LABS: ALBUMIN 3.9 GM/DL (3.2-5.2); ALT/SGPT 64 U/L (12-78); BILIRUBIN,TOTAL 0.7 MG/DL (0.2-1.0); BLOOD UREA NITROGEN 12 MG/DL (7-18); CALCIUM LEVEL 9.9 MG/DL (8.5-10.1); CARBON DIOXIDE LEVEL 24 MEQ/L (21-32); CHLORIDE LEVEL 100 MEQ/L (98-107); CREATININE FOR GFR 0.74 MG/DL (0.55-1.30); FREE T4 0.76 NG/DL (0.76-1.46); GLOMERULAR FILTRATION RATE > 60.0 (>60); GLUCOSE, FASTING 160 MG/DL (70-100); IRON (FE) 70 UG/DL (50-170); PERCENT SATURATION 15.9 % (13.2-45.0); POTASSIUM SERUM 4.4 MEQ/L (3.5-5.1); SODIUM LEVEL 132 MEQ/L (136-145); TOTAL IRON BINDING CAPACITY 440 UG/DL (250-450); TOTAL PROTEIN 7.3 GM/DL (6.4-8.2)
== END ==
LOC: M SFHCCLAY 11:10
PROVIDERS: ATTEND Nurse Practitioner Family
DX: G43.901 Migraine, unspecified, not intractable, with status migrainosus (principal); M54.2 Cervicalgia; E11.65 Type 2 diabetes mellitus with hyperglycemia; E78.5 Hyperlipidemia, unspecified; K21.9 Gastro-esophageal reflux disease without esophagitis; K50.90 Crohn's disease, unspecified, without complications; F32.9 Major depressive disorder, single episode, unspecified; E03.9 Hypothyroidism, unspecified

== ENCOUNTER → 2022-09-09 | Outpatient (REF) | payer BC | LOC: M LABDRAWC 11:19 | PROVIDERS: ATTEND Nurse Practitioner Family | DX: R11.0 Nausea (principal); K21.9 Gastro-esophageal reflux disease without esophagitis; R10.9 Unspecified abdominal pain; K50.90 Crohn's disease, unspecified, without complications ==

== ENCOUNTER → 2022-09-11 | Outpatient (REF) | payer BC | LOC: M LABDRAWC 12:25 | PROVIDERS: ATTEND Nurse Practitioner Family | DX: R11.0 Nausea (principal); K21.9 Gastro-esophageal reflux disease without esophagitis; R10.9 Unspecified abdominal pain; K50.90 Crohn's disease, unspecified, without complications ==

== ENCOUNTER 2022-09-24 14:10 | Inpatient (IN) | payer BC, SELFPAY ==
[~2022-09-24] VITALS: Ht 157.5 cm; Wt 83.5 kg
[2022-09-24 14:54] LABS: HEMATOCRIT 43.1 % (36.0-47.0); HEMOGLOBIN 14.3 g/dl (12.0-15.5); MEAN CORPUSCULAR HEMOGLOBIN 31.5 pg (27.0-33.0); MEAN CORPUSCULAR HGB CONC 33.2 g/dl (32.0-36.5); MEAN CORPUSCULAR VOLUME 94.9 fl (80.0-96.0); PLATELET COUNT, AUTOMATED 332 10^3/uL (150-450); RED BLOOD COUNT 4.54 10^6/uL (4.00-5.40); WHITE BLOOD COUNT 11.1 10^3/uL (4.0-10.0)
[2022-09-24 15:19] LABS: ETHYL ALCOHOL (ETHANOL) 0.003 % (0.000-0.010)
[2022-09-24 15:20] LABS: HCG, SERUM QUALITATIVE NEGATIVE (NEGATIVE)
[2022-09-24 15:21] LABS: ACETAMINOPHEN LEVEL < 2.0 UG/ML (10.0-20.0); ALBUMIN 3.9 G/DL (3.2-5.2); ALKALINE PHOSPHATASE 77 U/L (46-116); ALT/SGPT 28 U/L (7.0-40); AST/SGOT 18 U/L (<34); BILIRUBIN,DIRECT < 0.1 MG/DL (<0.4); BILIRUBIN,TOTAL 0.5 MG/DL (0.3-1.2); BLOOD UREA NITROGEN 16 MG/DL (9-23); CALCIUM LEVEL 9.7 MG/DL (8.5-10.1); CARBON DIOXIDE LEVEL 21 MMOL/L (20-31); CHLORIDE LEVEL 104 MMOL/L (98-107); CREATININE FOR GFR 0.66 MG/DL (0.55-1.30); GLOMERULAR FILTRATION RATE > 60.0 (>60); GLUCOSE, FASTING 203 MG/DL (60-100); POTASSIUM SERUM 4.9 MMOL/L (3.5-5.1); SALICYLATE LEVEL < 3.0 MG/DL (<30); SODIUM LEVEL 136 MMOL/L (136-145); TOTAL PROTEIN 7.3 G/DL (5.7-8.2)
[2022-09-24 15:23] LABS: THYROID STIMULATING HORMONE 2.112 uIU/ML (0.55-4.78)
[2022-09-24 15:25] LABS: RSV AMPLIFICATION NEGATIVE (NEGATIVE)
[2022-09-24 15:42] LABS: AMPHETAMINES LEVEL URINE NEGATIVE (NEGATIVE); BARBITURATES URINE NEGATIVE (NEGATIVE); BENZODIAZEPINES URINE NEGATIVE (NEGATIVE)
[2022-09-24 15:43] LABS: CANNABINOIDS URINE NEGATIVE (NEGATIVE); COCAINE METABOLITE URINE NEGATIVE (NEGATIVE); METHADONE URINE NEGATIVE (NEGATIVE); OPIATES URINE NEGATIVE (NEGATIVE); PHENCYCLIDINE URINE NEGATIVE (NEGATIVE)
[2022-09-24] MEDS ORDERED: ZYRTTAB8 PO (18:23)
[2022-09-24] MEDS ORDERED: METF-838 PO (18:23)
[2022-09-24] MEDS ORDERED: TRAZ-257 PO (18:23)
[2022-09-24] MEDS ORDERED: DULO60CA35 PO (18:23)
[2022-09-24] MEDS ORDERED: LITH150C PO (18:23)
[2022-09-24] MEDS ORDERED: SUCR1TAB56 PO (18:23)
[2022-09-24] MEDS ORDERED: TIRZ5PEN SC (18:23)
[2022-09-24] MEDS ORDERED: LITH300C PO (18:23)
[2022-09-24] MEDS ORDERED: LEVO50TA5 PO (18:23)
[2022-09-24] MEDS ORDERED: ERGO500029 PO (18:23)
[2022-09-24] MEDS ORDERED: DICY10CA13 PO (18:23)
[2022-09-24] MEDS ORDERED: HOME MED LIST COMPLETE! XX SCH (18:30)
[2022-09-24] MEDS ORDERED: LITHIUM CARBONATE 150 MG CAP PO ONE (18:55)
[2022-09-24] MEDS ORDERED: traZODone 100 MG TAB PO ONE (18:55)
[2022-09-24] MEDS ORDERED: LEVOTHYROXINE 50MCG TABLET (0.05MG) PO ONE (18:55)
[2022-09-24] MEDS ORDERED: DULoxetine 30MG CAPSULE (CYMBALTA) PO ONE (18:55)
[2022-09-25] MEDS ORDERED: LEVOTHYROXINE 50MCG TABLET (0.05MG) PO SCH (06:00)
[2022-09-25] MEDS ORDERED: SUCRALFATE 1 GM TAB PO SCH ×2 (07:30→09:00)
[2022-09-25] MEDS: NICOTINE 21MG/24HR 1 EA TRANSDERMAL TD SCH (09:00)
[2022-09-25] MEDS ORDERED: MOM 30ML SUSPENSION UDC PO PRN (10:40)
[2022-09-25] MEDS ORDERED: GLUCOSE 4GM CHEW TABLET PO PRN (10:40)
[2022-09-25] MEDS ORDERED: DEXTROSE 50% 50ML SYRINGE IV PRN (10:40)
[2022-09-25] MEDS ORDERED: IBUPROFEN 400MG TAB PO PRN (10:40)
[2022-09-25] MEDS ORDERED: MAALOX 30 ML SUSP *UDC PO PRN (10:40)
[2022-09-25] MEDS ORDERED: OLANZapine 5 MG TAB PO PRN (10:40)
[2022-09-25] MEDS ORDERED: traZODone 50 MG TAB PO PRN (10:40)
[2022-09-25] MEDS ORDERED: GLUCAGON INJ 1MG VIAL SC PRN (10:40)
[2022-09-25] MEDS ORDERED: DICYCLOMINE 10 MG CAP PO PRN (10:40)
[2022-09-25] MEDS ORDERED: CETIRIZINE (ZyrTEC) 10 MG TAB PO PRN (10:50)
[2022-09-25 11:49] LABS: HEMOGLOBIN A1c 8.5 % (4.0-6.0)
[2022-09-25] MEDS: INSULIN LISPRO (NovoLOG) PER UNIT SC SCH ×3 (12:00→21:00)
[2022-09-25 16:36] VITALS: BP 117/76
[2022-09-25] MEDS: traZODone 100 MG TAB PO SCH (20:31)
[2022-09-25] MEDS: LITHIUM CARBONATE 150 MG CAP PO SCH (20:31)
[2022-09-25] MEDS: DULoxetine 30MG CAPSULE (CYMBALTA) PO SCH (20:32)
[2022-09-25] MEDS: metFORMIN XR 500MG TAB *GLUCOPHAGE XR PO SCH (20:32)
[2022-09-25] MEDS ORDERED: traZODone 100 MG TAB PO SCH (21:00)
[2022-09-25] MEDS ORDERED: LITHIUM CARBONATE 300 MG CAP PO SCH (21:00)
[2022-09-25] MEDS ORDERED: metFORMIN XR 500MG TAB *GLUCOPHAGE XR PO SCH (21:00)
[2022-09-25] MEDS ORDERED: DULoxetine 30MG CAPSULE (CYMBALTA) PO SCH (21:00)
[2022-09-25] MEDS ORDERED: LITHIUM CARBONATE 150 MG CAP PO SCH (21:00)
[2022-09-25] MEDS ORDERED: metFORMIN (GLUCOPHAGE) 1000MG TABLET PO SCH (21:00)
[2022-09-25] MEDS: LEVOTHYROXINE 50MCG TABLET (0.05MG) PO SCH (21:34)
[2022-09-26] MEDS ORDERED: LEVOTHYROXINE 50MCG TABLET (0.05MG) PO SCH (06:00)
[2022-09-26] MEDS: INSULIN LISPRO (NovoLOG) PER UNIT SC SCH ×4 (06:35→20:36)
[2022-09-26 06:57] LABS: CHOLESTEROL LEVEL 262 MG/DL (<200); CHOLESTEROL RISK RATIO 6.56 (<5); HDL CHOLESTEROL 39.9 MG/DL (>40); NON-HDL-C 222 MG/DL; TRIGLYCERIDES LEVEL 494 MG/DL (<150)
[2022-09-26] MEDS: SUCRALFATE 1 GM TAB PO SCH (07:23)
[2022-09-26] MEDS: NICOTINE 21MG/24HR 1 EA TRANSDERMAL TD SCH (08:35)
[2022-09-26] MEDS ORDERED: CETIRIZINE (ZyrTEC) 10 MG TAB PO ONE (11:20)
[2022-09-26 16:18] VITALS: BP 118/66
[2022-09-26] MEDS: LEVOTHYROXINE 50MCG TABLET (0.05MG) PO SCH (20:34)
[2022-09-26] MEDS: DULoxetine 30MG CAPSULE (CYMBALTA) PO SCH (20:34)
[2022-09-26] MEDS: LITHIUM CARBONATE 150 MG CAP PO SCH (20:34)
[2022-09-26] MEDS: metFORMIN XR 500MG TAB *GLUCOPHAGE XR PO SCH (20:35)
[2022-09-26] MEDS: traZODone 100 MG TAB PO SCH (20:35)
[2022-09-27 06:28] VITALS: BP 109/58
[2022-09-27] MEDS: INSULIN LISPRO (NovoLOG) PER UNIT SC SCH ×4 (06:45→21:00)
[2022-09-27] MEDS: SUCRALFATE 1 GM TAB PO SCH (07:20)
[2022-09-27] MEDS: NICOTINE 21MG/24HR 1 EA TRANSDERMAL TD SCH (08:18)
[2022-09-27] MEDS: CETIRIZINE (ZyrTEC) 10 MG TAB PO SCH (08:19)
[2022-09-27 16:34] VITALS: BP 120/68
[2022-09-27] MEDS: traZODone 100 MG TAB PO SCH (21:21)
[2022-09-27] MEDS: LEVOTHYROXINE 50MCG TABLET (0.05MG) PO SCH (21:21)
[2022-09-27] MEDS: LITHIUM CARBONATE 150 MG CAP PO SCH (21:21)
[2022-09-27] MEDS: metFORMIN XR 500MG TAB *GLUCOPHAGE XR PO SCH (21:21)
[2022-09-27] MEDS: DULoxetine 30MG CAPSULE (CYMBALTA) PO SCH (21:21)
[2022-09-28 06:15] VITALS: BP 100/57
[2022-09-28] MEDS: INSULIN LISPRO (NovoLOG) PER UNIT SC SCH ×4 (06:46→20:25)
[2022-09-28] MEDS ORDERED: VITAMIN D 50,000 UNITS CAPSULE (ERGOCALCIFEROL 1.25MG) PO SCH (09:00)
[2022-09-28] MEDS: SUCRALFATE 1 GM TAB PO SCH (09:16)
[2022-09-28] MEDS: CETIRIZINE (ZyrTEC) 10 MG TAB PO SCH (09:16)
[2022-09-28] MEDS: NICOTINE 21MG/24HR 1 EA TRANSDERMAL TD SCH (09:17)
[2022-09-28] MEDS: OMEGA-3 1000MG CAPSULE PO SCH ×2 (12:14→20:23)
[2022-09-28 18:15] VITALS: BP 118/76
[2022-09-28] MEDS: LEVOTHYROXINE 50MCG TABLET (0.05MG) PO SCH (20:23)
[2022-09-28] MEDS: DULoxetine 30MG CAPSULE (CYMBALTA) PO SCH (20:23)
[2022-09-28] MEDS: traZODone 100 MG TAB PO SCH (20:23)
[2022-09-28] MEDS: LITHIUM CARBONATE 150 MG CAP PO SCH (20:23)
[2022-09-28] MEDS: metFORMIN XR 500MG TAB *GLUCOPHAGE XR PO SCH (20:23)
[2022-09-28] MEDS ORDERED: ARIPiprazole 15 MG TAB (AbiLIFY) PO SCH (21:00)
[2022-09-29 06:39] VITALS: BP 111/63
[2022-09-29] MEDS: INSULIN LISPRO (NovoLOG) PER UNIT SC SCH (06:44)
[2022-09-29] MEDS: SUCRALFATE 1 GM TAB PO SCH (08:17)
[2022-09-29] MEDS: OMEGA-3 1000MG CAPSULE PO SCH (08:54)
[2022-09-29] MEDS: NICOTINE 21MG/24HR 1 EA TRANSDERMAL TD SCH (08:54)
[2022-09-29] MEDS: CETIRIZINE (ZyrTEC) 10 MG TAB PO SCH (08:54)
[2022-09-29] MEDS ORDERED: ABIL1TAB12 PO (09:04)
[2022-09-29] MEDS ORDERED: LITH150C PO (09:04)
[2022-09-29] MEDS ORDERED: DULO60CA35 PO (09:04)
[2022-09-29] MEDS ORDERED: LITH300C PO (09:04)
[2022-09-29] MEDS ORDERED: TRAZ-257 PO (09:04)
[2022-09-29] MEDS ORDERED: CETI10TA PO (09:04)
[2022-09-29] MEDS ORDERED: NICO21PAT TD (09:04)
[2022-09-29] MEDS ORDERED: FISH1CAP26 PO (09:04)
== END 2022-09-29 12:16 | disposition home or self-care (01) | DRG 753 ==
LOC: M ED 14:10 → M ED INP 09-25 10:40 → M PSY 09-25 13:57
PROVIDERS: ADMIT Student in an Organized Health Care Education/Training Program; ATTEND Student in an Organized Health Care Education/Training Program
DX: F32.89 Other specified depressive episodes (principal); F43.10 Post-traumatic stress disorder, unspecified; R45.851 Suicidal ideations; Z56.89 Other problems related to employment; K50.90 Crohn's disease, unspecified, without complications; E11.9 Type 2 diabetes mellitus without complications; M50.30 Other cervical disc degeneration, unspecified cervical region; N80.9 Endometriosis, unspecified; E07.9 Disorder of thyroid, unspecified; F17.210 Nicotine dependence, cigarettes, uncomplicated; Z90.79 Acquired absence of other genital organ(s); Z81.8 Family history of other mental and behavioral disorders; Z79.890 Hormone replacement therapy; Z79.84 Long term (current) use of oral hypoglycemic drugs; Z79.899 Other long term (current) drug therapy; Z88.0 Allergy status to penicillin; Z88.1 Allergy status to other antibiotic agents; Z88.8 Allergy status to other drugs, medicaments and biological substances; Z91.030 Bee allergy status; Z20.822 Contact with and (suspected) exposure to COVID-19

== ENCOUNTER → 2022-11-03 | Outpatient (CLI) | payer MEDICAID ==
[~2022-11-03] MED LIST changes: +ABIL1TAB12 PO; +CETI10TA PO; +DICY10CA13 PO; +DULO60CA35 PO; +ERGO500029 PO; +FISH1CAP26 PO; +LEVO50TA5 PO; +LITH150C PO; +METF-838 PO; +NICO21PAT TD; +SUCR1TAB56 PO; +TIRZ5PEN SC; +TOPI-254; -TOPI50TA9; +TRAZ-257 PO; +ZYRTTAB8 PO
== END ==
LOC: M SLEEP HO 14:13
PROVIDERS: ATTEND Nurse Practitioner Family
DX: R40.0 Somnolence (principal)

== ENCOUNTER 2022-12-23 13:43 | Emergency (ER) | payer MEDICAID, OTHER ==
[~2022-12-23] VITALS: Ht 157.5 cm; Wt 84.5 kg
[2022-12-23] MEDS ORDERED: NS 1,000 ML IV ONE ×2 (14:55→17:10)
[2022-12-23 15:16] LABS: APPEARANCE, URINE CLEAR (CLEAR); BACTERIA, URINE AUTO 1+ (NEGATIVE); BILIRUBIN, URINE AUTO NEGATIVE (NEGATIVE); BLOOD, URINE BLOOD NEGATIVE (NEGATIVE); COLOR, URINE STRAW (YELLOW); GLUCOSE, URINE (UA) AUTO 3+ mg/dL (NEGATIVE); KETONE, URINE AUTO 1+ mg/dL (NEGATIVE); LEUKOCYTE ESTERASE, URINE AUTO NEGATIVE (NEGATIVE); NITRITE, URINE AUTO NEGATIVE (NEGATIVE); PROTEIN, URINE AUTO NEGATIVE (NEGATIVE); RBC, URINE AUTO 0 /HPF (0-3); SPECIFIC GRAVITY URINE AUTO 1.018 (1.002-1.035); SQUAMOUS EPITHELIAL CELL UR AU 0 /HPF (0-6); UROBILINOGEN, URINE AUTO 0.2 mg/dL (0.0-2.0); WBC, URINE AUTO 0 /HPF (0-3)
[2022-12-23 15:19] LABS: VENOUS HCO3 21.4 MEQ/L (23.0-27.0); VENOUS O2 SATURATION 75.1 % (60.0-80.0); VENOUS PARTIAL PRESSURE CO2 40.4 mmHg (38.0-50.0); VENOUS PARTIAL PRESSURE O2 40.9 mmHg (30.0-50.0); VENOUS PH 7.342 UNITS (7.330-7.430); VENOUS STANDARD HCO3 20.6 MEQ/L; VENOUS TOTAL CO2 22.6 MEQ/L (24.0-28.0)
[2022-12-23 15:37] LABS: BASO # 0.1 10^3/uL (0.0-0.2); BASO % 0.3 % (0.0-1.0); HEMATOCRIT 44.4 % (36.0-47.0); HEMOGLOBIN 14.7 g/dl (12.0-15.5); LYMPH # 1.8 10^3/uL (1.5-5.0); LYMPH % 10.1 % (24.0-44.0); MEAN CORPUSCULAR HEMOGLOBIN 31.1 pg (27.0-33.0); MEAN CORPUSCULAR HGB CONC 33.1 g/dl (32.0-36.5); MEAN CORPUSCULAR VOLUME 94.1 fl (80.0-96.0); MONO # 0.5 10^3/uL (0.0-0.8); MONO % 3.1 % (2.0-8.0); NEUTROPHILS # 14.9 10^3/uL (1.5-8.5); NEUTROPHILS % 85.9 % (36.0-66.0); PLATELET COUNT, AUTOMATED 371 10^3/uL (150-450); RED BLOOD COUNT 4.72 10^6/uL (4.00-5.40); WHITE BLOOD COUNT 17.3 10^3/uL (4.0-10.0)
[2022-12-23 15:59] LABS: ALBUMIN 3.9 G/DL (3.2-5.2); BILIRUBIN,DIRECT 0.1 MG/DL (<0.4); BILIRUBIN,TOTAL 0.9 MG/DL (0.3-1.2); MAGNESIUM LEVEL 1.7 MG/DL (1.8-2.4); TOTAL PROTEIN 7.3 G/DL (5.7-8.2)
[2022-12-23 16:11] LABS: RSV AMPLIFICATION NEGATIVE (NEGATIVE)
[2022-12-23 17:05] LABS: ACETONE/KETONE 0.3 MMOL/L (0.02-0.27)
[2022-12-23 17:06] LABS: LITHIUM LEVEL 0.14 MMOL/L (0.60-1.20)
[2022-12-23 17:42] LABS: HEMOGLOBIN A1c 9.4 % (4.0-6.0)
[2022-12-23 18:45] VITALS: BP 148/92
== END 2022-12-23 18:54 | disposition home or self-care (01) ==
LOC: M ED 13:43
DX: E11.65 Type 2 diabetes mellitus with hyperglycemia (principal); J45.909 Unspecified asthma, uncomplicated; K21.9 Gastro-esophageal reflux disease without esophagitis; E78.5 Hyperlipidemia, unspecified; F41.9 Anxiety disorder, unspecified; Z88.0 Allergy status to penicillin; Z88.8 Allergy status to other drugs, medicaments and biological substances; Z91.030 Bee allergy status; Z79.899 Other long term (current) drug therapy

== ENCOUNTER → 2023-01-13 | Outpatient (REF) | payer MEDICAID ==
[2023-01-13 12:10] LABS: BASO # 0.1 10^3/uL (0.0-0.2); BASO % 0.6 % (0.0-1.0); EOS # 0.1 10^3/uL (0.0-0.5); EOS % 0.5 % (0.0-3.0); HEMATOCRIT 44.9 % (36.0-47.0); HEMOGLOBIN 14.5 g/dl (12.0-15.5); LYMPH % 26.8 % (24.0-44.0); MEAN CORPUSCULAR HEMOGLOBIN 31.5 pg (27.0-33.0); MEAN CORPUSCULAR HGB CONC 32.3 g/dl (32.0-36.5); MEAN CORPUSCULAR VOLUME 97.4 fl (80.0-96.0); MONO # 0.8 10^3/uL (0.0-0.8); NEUTROPHILS % 66.5 % (36.0-66.0); PLATELET COUNT, AUTOMATED 348 10^3/uL (150-450); RED BLOOD COUNT 4.61 10^6/uL (4.00-5.40)
[2023-01-13 12:12] LABS: THYROID STIMULATING HORMONE 0.708 uIU/ML (0.55-4.78)
[2023-01-13 12:13] LABS: FOLATE > 24.00 NG/ML (>5.4); VITAMIN B12 LEVEL 619 PG/ML (211-911)
[2023-01-13 12:14] LABS: FREE T4 1.03 NG/DL (0.89-1.76)
== END ==
LOC: M SFHCCLAY 07:20
PROVIDERS: ATTEND Nurse Practitioner Family
DX: G43.901 Migraine, unspecified, not intractable, with status migrainosus (principal); E11.65 Type 2 diabetes mellitus with hyperglycemia; E78.5 Hyperlipidemia, unspecified; K21.9 Gastro-esophageal reflux disease without esophagitis; K50.90 Crohn's disease, unspecified, without complications; F32.9 Major depressive disorder, single episode, unspecified; E03.9 Hypothyroidism, unspecified; E55.9 Vitamin D deficiency, unspecified; M79.7 Fibromyalgia; M50.30 Other cervical disc degeneration, unspecified cervical region; F17.210 Nicotine dependence, cigarettes, uncomplicated; K59.00 Constipation, unspecified

== ENCOUNTER → 2023-02-09 | Outpatient (REF) | payer MEDICAID, OTHER | LOC: M SFHCCLAY 13:47 | PROVIDERS: ATTEND Nurse Practitioner Family | DX: E11.9 Type 2 diabetes mellitus without complications (principal); Z53.9 Procedure and treatment not carried out, unspecified reason ==

== ENCOUNTER → 2023-03-01 | Outpatient (REF) | payer OTHER, BC ==
[2023-03-01 18:59] LABS: CREATININE, URINE 40.9 MG/DL; MALB URINE SIEMENS < 3.0 MG/L; MAU/CREAT RATIO 7.3 MCG/MG (0.0-30.0)
== END ==
LOC: M LAB REF 16:51
PROVIDERS: ATTEND Nurse Practitioner Family
DX: E11.65 Type 2 diabetes mellitus with hyperglycemia (principal)

== ENCOUNTER → 2023-07-05 | Outpatient (REF) | payer BC, MEDICAID ==
[~2023-07-05] MED LIST changes: +DICY-61 PO; -DICY10CA13 PO
== END ==
LOC: M SFHCCLAY 13:55
PROVIDERS: ATTEND Nurse Practitioner Family
DX: Z53.9 Procedure and treatment not carried out, unspecified reason (principal); E03.9 Hypothyroidism, unspecified

== ENCOUNTER → 2023-09-22 | Outpatient (REF) | payer BC ==
[~2023-09-22] MED LIST changes: +TOPI-21; -TOPI-254
[2023-09-22 19:50] LABS: RSV AMPLIFICATION NEGATIVE (NEGATIVE)
== END ==
LOC: M SFHCCLAY 13:49
PROVIDERS: ATTEND Physician Assistant
DX: R09.81 Nasal congestion (principal)

== ENCOUNTER → 2023-11-05 | Outpatient (CLI) | payer BC ==
[2023-11-05 09:12] LABS: HEMATOCRIT 40.7 % (36.0-47.0); HEMOGLOBIN 13.4 g/dl (12.0-15.5); MEAN CORPUSCULAR HEMOGLOBIN 31.1 pg (27.0-33.0); MEAN CORPUSCULAR HGB CONC 32.9 g/dl (32.0-36.5); MEAN CORPUSCULAR VOLUME 94.4 fl (80.0-96.0); PLATELET COUNT, AUTOMATED 390 10^3/uL (150-450); RED BLOOD COUNT 4.31 10^6/uL (4.00-5.40); WHITE BLOOD COUNT 11.7 10^3/uL (4.0-10.0)
[2023-11-05 09:38] LABS: CREATININE, URINE 42.7 MG/DL; MAU/CREAT RATIO 16.3 MCG/MG (0.0-30.0)
[2023-11-05 09:40] LABS: ALBUMIN 3.9 G/DL (3.2-5.2); ALKALINE PHOSPHATASE 78 U/L (46-116); ALT/SGPT 26 U/L (7.0-40); AST/SGOT < 8 U/L (<34); BILIRUBIN,TOTAL 0.9 MG/DL (0.3-1.2); BLOOD UREA NITROGEN 17 MG/DL (9-23); CALCIUM LEVEL 9.4 MG/DL (8.5-10.1); CARBON DIOXIDE LEVEL 25 MMOL/L (20-31); CHLORIDE LEVEL 104 MMOL/L (98-107); CHOLESTEROL LEVEL 228 MG/DL (<200); CREATININE FOR GFR 0.54 MG/DL (0.55-1.30); GLOMERULAR FILTRATION RATE > 60.0 (>60); GLUCOSE, FASTING 199 MG/DL (60-100); HDL CHOLESTEROL 51.8 MG/DL (>40); LDL CHOLESTEROL 139.8 MG/DL (<100); NON-HDL-C 176.2 MG/DL; POTASSIUM SERUM 4.3 MMOL/L (3.5-5.1); SODIUM LEVEL 137 MMOL/L (136-145); TOTAL PROTEIN 6.8 G/DL (5.7-8.2); TRIGLYCERIDES LEVEL 182 MG/DL (<150)
[2023-11-05 10:18] LABS: HEMOGLOBIN A1c 7.2 % (4.0-6.0)
== END ==
LOC: M LAB 08:12
PROVIDERS: ATTEND Student in an Organized Health Care Education/Training Program
DX: E11.65 Type 2 diabetes mellitus with hyperglycemia (principal); Z79.4 Long term (current) use of insulin

== ENCOUNTER → 2023-12-14 | Outpatient (REF) | payer BC ==
[2023-12-14 18:53] LABS: BASO # 0.1 10^3/uL (0.0-0.2); BASO % 0.9 % (0.0-1.0); EOS # 0.2 10^3/uL (0.0-0.5); EOS % 1.6 % (0.0-3.0); HEMATOCRIT 36.2 % (36.0-47.0); HEMOGLOBIN 12.2 g/dl (12.0-15.5); LYMPH % 28.5 % (24.0-44.0); MEAN CORPUSCULAR HEMOGLOBIN 31.8 pg (27.0-33.0); MEAN CORPUSCULAR HGB CONC 33.7 g/dl (32.0-36.5); MEAN CORPUSCULAR VOLUME 94.3 fl (80.0-96.0); MONO # 0.5 10^3/uL (0.0-0.8); MONO % 5.1 % (2.0-8.0); NEUTROPHILS # 6.7 10^3/uL (1.5-8.5); NEUTROPHILS % 63.3 % (36.0-66.0); PLATELET COUNT, AUTOMATED 383 10^3/uL (150-450); RED BLOOD COUNT 3.84 10^6/uL (4.00-5.40); WHITE BLOOD COUNT 10.5 10^3/uL (4.0-10.0)
[2023-12-14 19:22] LABS: ALBUMIN 3.7 G/DL (3.2-5.2); ALKALINE PHOSPHATASE 75 U/L (46-116); ALT/SGPT 36 U/L (7.0-40); AST/SGOT 17 U/L (<34); BILIRUBIN,TOTAL 0.5 MG/DL (0.3-1.2); BLOOD UREA NITROGEN 12 MG/DL (9-23); CALCIUM LEVEL 9.3 MG/DL (8.5-10.1); CARBON DIOXIDE LEVEL 26 MMOL/L (20-31); CHLORIDE LEVEL 105 MMOL/L (98-107); CREATININE FOR GFR 0.57 MG/DL (0.55-1.30); GLOMERULAR FILTRATION RATE > 60.0 (>60); GLUCOSE, FASTING 209 MG/DL (60-100); POTASSIUM SERUM 4.3 MMOL/L (3.5-5.1); SODIUM LEVEL 134 MMOL/L (136-145); TOTAL PROTEIN 6.7 G/DL (5.7-8.2)
== END ==
LOC: M SFHCCLAY 14:10
PROVIDERS: ATTEND Physician Assistant
DX: R10.32 Left lower quadrant pain (principal)

== ENCOUNTER → 2023-12-29 | Outpatient (REF) | payer BC ==
[2023-12-29 18:30] LABS: BASO # 0.1 10^3/uL (0.0-0.2); BASO % 0.9 % (0.0-1.0); EOS # 0.3 10^3/uL (0.0-0.5); EOS % 2.3 % (0.0-3.0); HEMATOCRIT 37.2 % (36.0-47.0); HEMOGLOBIN 12.7 g/dl (12.0-15.5); LYMPH % 31.1 % (24.0-44.0); MEAN CORPUSCULAR HEMOGLOBIN 31.9 pg (27.0-33.0); MEAN CORPUSCULAR HGB CONC 34.1 g/dl (32.0-36.5); MEAN CORPUSCULAR VOLUME 93.5 fl (80.0-96.0); MONO # 0.8 10^3/uL (0.0-0.8); NEUTROPHILS # 7.6 10^3/uL (1.5-8.5); NEUTROPHILS % 58.9 % (36.0-66.0); PLATELET COUNT, AUTOMATED 380 10^3/uL (150-450); RED BLOOD COUNT 3.98 10^6/uL (4.00-5.40); WHITE BLOOD COUNT 12.8 10^3/uL (4.0-10.0)
[2023-12-29 18:49] LABS: LIPASE 42 U/L (12-53)
[2023-12-29 18:50] LABS: AMYLASE 42 U/L (30-118)
[2023-12-29 18:51] LABS: ALBUMIN 3.5 G/DL (3.2-5.2); ALKALINE PHOSPHATASE 74 U/L (46-116); ALT/SGPT 27 U/L (7.0-40); AST/SGOT 13 U/L (<34); BILIRUBIN,TOTAL 0.3 MG/DL (0.3-1.2); BLOOD UREA NITROGEN 12 MG/DL (9-23); CALCIUM LEVEL 9.3 MG/DL (8.5-10.1); CARBON DIOXIDE LEVEL 27 MMOL/L (20-31); CHLORIDE LEVEL 106 MMOL/L (98-107); CREATININE FOR GFR 0.52 MG/DL (0.55-1.30); GLOMERULAR FILTRATION RATE > 60.0 (>60); GLUCOSE, FASTING 113 MG/DL (60-100); POTASSIUM SERUM 4.6 MMOL/L (3.5-5.1); SODIUM LEVEL 137 MMOL/L (136-145); TOTAL PROTEIN 6.5 G/DL (5.7-8.2)
== END ==
LOC: M SFHCCLAY 10:45
PROVIDERS: ATTEND Physician Assistant
DX: R10.32 Left lower quadrant pain (principal)

== ENCOUNTER → 2024-02-18 | Outpatient (REF) | payer BC ==
[~2024-02-18] MED LIST changes: +ARIP1TAB44 PO; +BACL10TA2 PO; +BASA100I SC; +BUSP10TA79 PO; +DOXY100C3 PO; +GLIM1TAB84 PO; +ONDA-282 PO; -ONDA4TAB6 PO; +PRAZ1CAP PO; +TRUL0.5I SC
== END ==
LOC: M SFHCCLAY 10:16
PROVIDERS: ATTEND Physician Assistant
DX: J02.9 Acute pharyngitis, unspecified (principal)

== ENCOUNTER 2024-02-23 06:04 | Day surgery (SDC) | payer BC ==
[~2024-02-23] VITALS: Ht 157.5 cm; Wt 96.8 kg
[2024-02-23] MEDS: OFLOXACIN 0.3 % (OCUFLOX) OPTH SOL 5ML OS ONE (06:00)
[2024-02-23] MEDS: LIDOCAINE 3.5 % 1ML OPHTH TOPICAL GEL OU ONE (06:00)
[2024-02-23] MEDS ORDERED: MIDAZOLAM INJ 2MG/2ML VIAL As Ordered ONE (06:56)
[2024-02-23] MEDS ORDERED: fentaNYL 100 MCG/2 ML INJECTION As Ordered ONE (06:58)
[2024-02-23] MEDS: INSULIN LISPRO (NovoLOG) PER UNIT SC PRN (07:10)
[2024-02-23] MEDS: LIDOCAINE 1% SDV 5ML VIAL As Ordered ONE (07:30)
[2024-02-23] MEDS: CEFUROXIME 1MG/0.1ML INTRACAMERAL INJ As Ordered ONE (07:35)
[2024-02-23 07:45] VITALS: BP 162/88; TEMP 96.2; O2SAT 95
== END 2024-02-23 07:59 | disposition home or self-care (01) ==
LOC: M SDC 06:04
PROVIDERS: ATTEND Ophthalmology
DX: H40.9 Unspecified glaucoma (principal); E11.9 Type 2 diabetes mellitus without complications; E03.9 Hypothyroidism, unspecified; E78.00 Pure hypercholesterolemia, unspecified; K50.90 Crohn's disease, unspecified, without complications; J45.909 Unspecified asthma, uncomplicated; G47.30 Sleep apnea, unspecified; Z79.899 Other long term (current) drug therapy; Z79.4 Long term (current) use of insulin; Z88.1 Allergy status to other antibiotic agents; Z88.0 Allergy status to penicillin; F17.210 Nicotine dependence, cigarettes, uncomplicated; Z79.84 Long term (current) use of oral hypoglycemic drugs; Z79.85 Long-term (current) use of injectable non-insulin antidiabetic drugs
CPT/HCPCS: 66991; C1783; J0697; J1815; J2250; J3010

== ENCOUNTER → 2024-03-13 | Outpatient (CLI) | payer BC | LOC: M RAD 08:58 | PROVIDERS: ATTEND Internal Medicine Gastroenterology | DX: K21.9 Gastro-esophageal reflux disease without esophagitis (principal); K59.00 Constipation, unspecified; R11.0 Nausea; R68.81 Early satiety | CPT/HCPCS: 78264; A9541 ==

== ENCOUNTER → 2024-04-01 | Outpatient (REF) | payer BC | LOC: M LAB REF 11:06 | PROVIDERS: ATTEND Family Medicine | DX: K52.1 Toxic gastroenteritis and colitis (principal); T36.95XA Adverse effect of unspecified systemic antibiotic, initial encounter ==

== ENCOUNTER → 2024-05-03 | Outpatient (CLI) | payer BC ==
[2024-05-03 08:47] LABS: ALBUMIN 3.5 G/DL (3.2-5.2); ALKALINE PHOSPHATASE 73 U/L (46-116); ALT/SGPT 49 U/L (7.0-40); AST/SGOT 37 U/L (<34); BILIRUBIN,TOTAL 0.6 MG/DL (0.3-1.2); BLOOD UREA NITROGEN 11 MG/DL (9-23); CALCIUM LEVEL 9.4 MG/DL (8.5-10.1); CARBON DIOXIDE LEVEL 26 MMOL/L (20-31); CHLORIDE LEVEL 108 MMOL/L (98-107); CHOLESTEROL LEVEL 225 MG/DL (<200); CHOLESTEROL RISK RATIO 5.78 (<5); CREATININE FOR GFR 0.67 MG/DL (0.55-1.30); GLOMERULAR FILTRATION RATE > 60.0 (>58); GLUCOSE, FASTING 244 MG/DL (60-100); HDL CHOLESTEROL 38.9 MG/DL (>40); NON-HDL-C 186.1 MG/DL; POTASSIUM SERUM 4.3 MMOL/L (3.5-5.1); SODIUM LEVEL 139 MMOL/L (136-145); TOTAL PROTEIN 6.8 G/DL (5.7-8.2); TRIGLYCERIDES LEVEL 416 MG/DL (<150)
[2024-05-03 08:51] LABS: FREE T4 0.94 NG/DL (0.89-1.76); THYROID STIMULATING HORMONE 3.253 uIU/ML (0.55-4.78); TOTAL 25(OH) VITAMIN D 51.4 NG/ML (20.0-100.0)
[2024-05-03 09:11] LABS: CREATININE, URINE 389.2 MG/DL; MAU/CREAT RATIO 8.4 MCG/MG (0.0-30.0)
== END ==
LOC: M LAB 07:48
PROVIDERS: ATTEND Physician Assistant
DX: E11.69 Type 2 diabetes mellitus with other specified complication (principal); Z79.4 Long term (current) use of insulin

== ENCOUNTER → 2024-05-03 | Outpatient (CLI) | payer BC ==
[2024-05-03 08:35] LABS: HEMOGLOBIN A1c 8.2 % (4.0-6.0)
[2024-05-03 09:26] LABS: CHOLESTEROL LEVEL 220 MG/DL (<200); CHOLESTEROL RISK RATIO 5.59 (<5); HDL CHOLESTEROL 39.3 MG/DL (>40); NON-HDL-C 180.7 MG/DL; TRIGLYCERIDES LEVEL 411 MG/DL (<150)
[2024-05-03 09:27] LABS: FREE T4 0.82 NG/DL (0.89-1.76)
== END ==
LOC: M LAB 07:50
PROVIDERS: ATTEND Nurse Practitioner Family
DX: G43.901 Migraine, unspecified, not intractable, with status migrainosus (principal); T63.461A Toxic effect of venom of wasps, accidental (unintentional), initial encounter; F32.9 Major depressive disorder, single episode, unspecified; E11.65 Type 2 diabetes mellitus with hyperglycemia; E78.5 Hyperlipidemia, unspecified; K21.9 Gastro-esophageal reflux disease without esophagitis; K50.90 Crohn's disease, unspecified, without complications; E03.9 Hypothyroidism, unspecified; E55.9 Vitamin D deficiency, unspecified; M79.7 Fibromyalgia; M50.30 Other cervical disc degeneration, unspecified cervical region; F17.210 Nicotine dependence, cigarettes, uncomplicated; K59.00 Constipation, unspecified; B02.9 Zoster without complications

== ENCOUNTER → 2024-05-11 | Outpatient (REF) | payer BC ==
[2024-05-11 13:40] LABS: RSV AMPLIFICATION NEGATIVE (NEGATIVE)
== END ==
LOC: M LAB REF 12:06
PROVIDERS: ATTEND Physician Assistant
DX: B34.9 Viral infection, unspecified (principal)

== ENCOUNTER → 2024-05-19 | Outpatient (REF) | payer BC ==
[2024-05-19 17:25] LABS: BASO # 0.1 10^3/uL (0.0-0.2); BASO % 0.8 % (0.0-1.0); EOS # 0.2 10^3/uL (0.0-0.5); EOS % 1.4 % (0.0-3.0); HEMATOCRIT 36.8 % (36.0-47.0); HEMOGLOBIN 12.3 g/dl (12.0-15.5); LYMPH # 2.5 10^3/uL (1.5-5.0); LYMPH % 20.3 % (24.0-44.0); MEAN CORPUSCULAR HEMOGLOBIN 31.1 pg (27.0-33.0); MEAN CORPUSCULAR HGB CONC 33.4 g/dl (32.0-36.5); MEAN CORPUSCULAR VOLUME 92.9 fl (80.0-96.0); MONO # 0.7 10^3/uL (0.0-0.8); MONO % 5.6 % (2.0-8.0); NEUTROPHILS % 71.5 % (36.0-66.0); PLATELET COUNT, AUTOMATED 379 10^3/uL (150-450); RED BLOOD COUNT 3.96 10^6/uL (4.00-5.40); WHITE BLOOD COUNT 12.5 10^3/uL (4.0-10.0)
[2024-05-19 17:51] LABS: ALBUMIN 3.7 G/DL (3.2-5.2); ALKALINE PHOSPHATASE 74 U/L (46-116); ALT/SGPT 38 U/L (7.0-40); AST/SGOT 14 U/L (<34); BILIRUBIN,TOTAL 0.8 MG/DL (0.3-1.2); BLOOD UREA NITROGEN 12 MG/DL (9-23); CALCIUM LEVEL 9.3 MG/DL (8.5-10.1); CARBON DIOXIDE LEVEL 25 MMOL/L (20-31); CHLORIDE LEVEL 107 MMOL/L (98-107); CREATININE FOR GFR 0.68 MG/DL (0.55-1.30); GLOMERULAR FILTRATION RATE > 60.0 (>58); GLUCOSE, FASTING 233 MG/DL (60-100); POTASSIUM SERUM 4.1 MMOL/L (3.5-5.1); SODIUM LEVEL 134 MMOL/L (136-145); TOTAL PROTEIN 6.7 G/DL (5.7-8.2)
[2024-05-19 17:53] LABS: FREE T4 1.04 NG/DL (0.89-1.76)
[2024-05-19 17:54] LABS: THYROID STIMULATING HORMONE 1.462 uIU/ML (0.55-4.78)
[2024-05-19 18:22] LABS: MONO REFLEX EBV COMP NEGATIVE (NEGATIVE)
[2024-05-23 14:16] LABS: EBV VIRAL CAPSID AG IGM < 36.00 U/mL (<36.00)
== END ==
LOC: M SFHCCLAY 13:25
PROVIDERS: ATTEND Physician Assistant
DX: R53.83 Other fatigue (principal); E03.9 Hypothyroidism, unspecified

== ENCOUNTER → 2024-09-06 | Outpatient (CLI) | payer BC ==
[~2024-09-06] MED LIST changes: -ARIP1TAB44 PO; +ARIP30TA38 PO; +GABA-1172; -GABA-282; +META-10; -META1TAB22
[2024-09-06 12:15] LABS: ALBUMIN 3.4 G/DL (3.2-5.2); ALKALINE PHOSPHATASE 87 U/L (35-104); ALT/SGPT 30 U/L (7.0-40); AST/SGOT 14 U/L (<34); BILIRUBIN,DIRECT 0.2 MG/DL (<0.4); BILIRUBIN,TOTAL 0.8 MG/DL (0.3-1.2); IRON (FE) 114 UG/DL (50-170); PERCENT SATURATION 27.1 % (13.2-45.0); TOTAL IRON BINDING CAPACITY 420 UG/DL (250-425); TOTAL PROTEIN 7.2 G/DL (5.7-8.2)
[2024-09-06 12:17] LABS: FERRITIN 68.1 NG/ML (7.3-270.7); THYROID STIMULATING HORMONE 1.383 uIU/ML (0.55-4.78)
[2024-09-06 12:23] LABS: HEPATITIS B SURFACE ANTIBODY NEGATIVE (POSITIVE)
[2024-09-06 12:35] LABS: HEPATITIS B SURFACE ANTIGEN NEGATIVE (NEGATIVE)
[2024-09-06 12:56] LABS: HEPATITIS C VIRUS ABY INDEX < 0.02 INDEX (<0.8)
[2024-09-07 11:28] LABS: ALPHA 1 ANTITRYPSIN 153 mg/dL (83-199)
[2024-09-07 14:43] LABS: HEPATITIS A IgG TOTAL REACTIVE (NON-REACTIVE)
[2024-09-07 15:22] LABS: ANA SCREEN, IFA NEGATIVE (NEGATIVE)
[2024-09-08 02:22] LABS: TISSUE TRANSGLUTAMINASE IgA < 1.0 U/mL (<15.0)
[2024-09-08 02:49] LABS: ALMOND IGE FOOD < 0.10 kU/L (<0.10); CASHEW NUT IGE FOOD < 0.10 kU/L (<0.10); CODFISH IGE FOOD < 0.10 kU/L (<0.10); COWS MILK FOOD < 0.10 kU/L (<0.10); EGG WHITE FOOD < 0.1 kU/L (<0.10); HAZELNUT IGE FOOD < 0.10 kU/L (<0.10); PEANUT IGE FOOD < 0.10 kU/L (<0.10); SALMON IGE FOOD < 0.10 kU/L (<0.10); SCALLOP IGE FOOD < 0.10 kU/L (<0.10); SESAME SEED IGE FOOD < 0.10 kU/L (<0.10); SHRIMP IGE FOOD < 0.10 kU/L (<0.10); SOYBEAN IGE FOOD < 0.10 kU/L (<0.10); TUNA IGE FOOD < 0.10 kU/L (<0.10); WALNUT IGE FOOD < 0.10 kU/L (<0.10); WHEAT IGE FOOD < 0.10 kU/L (<0.10)
[2024-09-08 08:08] LABS: ALBUMIN SPEP 4.1 g/dL (3.8-4.8); ALPHA-1-GLOBULINS SO 0.3 g/dL (0.2-0.3); ALPHA-2-GLOBULINS SO 0.7 g/dL (0.5-0.9); BETA 2 GLOBULIN 0.5 g/dL (0.2-0.5); BETA-GLOBULIN SO 0.6 g/dL (0.4-0.6); GAMMA GLOBULINS SO 0.7 g/dL (0.8-1.7)
[2024-09-08 12:28] LABS: ANTI-MITOCHONDRIAL ANTIBODY NEGATIVE (NEGATIVE)
== END ==
LOC: M LAB 07:43
PROVIDERS: ATTEND Internal Medicine Gastroenterology
DX: K75.81 Nonalcoholic steatohepatitis (NASH) (principal); K44.9 Diaphragmatic hernia without obstruction or gangrene; K50.90 Crohn's disease, unspecified, without complications; K21.9 Gastro-esophageal reflux disease without esophagitis; R11.0 Nausea; R10.9 Unspecified abdominal pain; R94.5 Abnormal results of liver function studies

== ENCOUNTER → 2024-09-07 | Outpatient (REF) | payer BC ==
[2024-09-13 21:32] LABS: CALPROTECTIN STOOL 67 mcg/g (<50)
[2024-09-14 19:21] LABS: PANCREATIC ELASTASE STOOL > 800 mcg/g (>200)
== END ==
LOC: M LAB REF 09:37
PROVIDERS: ATTEND Internal Medicine Gastroenterology
DX: R11.0 Nausea (principal); R10.9 Unspecified abdominal pain; K21.9 Gastro-esophageal reflux disease without esophagitis; K75.81 Nonalcoholic steatohepatitis (NASH); K50.90 Crohn's disease, unspecified, without complications; K44.9 Diaphragmatic hernia without obstruction or gangrene

== ENCOUNTER 2024-10-27 12:03 | Emergency (ER) | payer BC ==
[~2024-10-27] VITALS: Ht 157.5 cm; Wt 99.0 kg
[2024-10-27 12:33] LABS: BASO # 0.1 10^3/uL (0.0-0.2); BASO % 0.8 % (0.0-1.0); EOS # 0.5 10^3/uL (0.0-0.5); EOS % 4.1 % (0.0-3.0); HEMOGLOBIN 12.8 g/dl (12.0-15.5); LYMPH # 3.7 10^3/uL (1.5-5.0); LYMPH % 27.7 % (24.0-44.0); MEAN CORPUSCULAR HEMOGLOBIN 30.8 pg (27.0-33.0); MEAN CORPUSCULAR HGB CONC 33.7 g/dl (32.0-36.5); MEAN CORPUSCULAR VOLUME 91.3 fl (80.0-96.0); MONO # 0.9 10^3/uL (0.0-0.8); NEUTROPHILS % 59.9 % (36.0-66.0); PLATELET COUNT, AUTOMATED 388 10^3/uL (150-450); RED BLOOD COUNT 4.16 10^6/uL (4.00-5.40); WHITE BLOOD COUNT 13.3 10^3/uL (4.0-10.0)
[2024-10-27 12:57] LABS: LIPASE 89 U/L (12-53)
[2024-10-27 13:00] LABS: ALBUMIN 3.6 G/DL (3.2-5.2); ALKALINE PHOSPHATASE 80 U/L (35-104); ALT/SGPT 23 U/L (7.0-40); AST/SGOT 19 U/L (<34); BILIRUBIN,DIRECT 0.1 MG/DL (<0.4); BILIRUBIN,TOTAL 0.4 MG/DL (0.3-1.2); BLOOD UREA NITROGEN 8 MG/DL (9-23); CARBON DIOXIDE LEVEL 28 MMOL/L (20-31); CHLORIDE LEVEL 101 MMOL/L (98-107); CREATININE FOR GFR 0.54 MG/DL (0.55-1.30); GLOMERULAR FILTRATION RATE > 60.0 (>58); GLUCOSE, FASTING 145 MG/DL (60-100); POTASSIUM SERUM 4.1 MMOL/L (3.5-5.1); SODIUM LEVEL 136 MMOL/L (136-145); TOTAL PROTEIN 6.8 G/DL (5.7-8.2)
[2024-10-27 13:03] LABS: CK-MB VALUE MASS < 1.0 NG/ML (<3.6)
[2024-10-27 13:08] LABS: FREE T4 1.17 NG/DL (0.89-1.76); THYROID STIMULATING HORMONE 1.141 uIU/ML (0.55-4.78)
[2024-10-27] MEDS: ASPIRIN 81MG CHEW TABLET PO ONE (13:15)
[2024-10-27] MEDS ORDERED: ISOVUE-370 76% 100ML VIAL As Ordered ONE (13:20)
[2024-10-27 13:42] LABS: CPK CREATINE PHOSPHOKINASE 86 U/L (34-145); MB/CK RELATIVE INDEX 1.16 (< OR =4)
[2024-10-27] MEDS: NITROGLYCERIN 0.4MG SUBL TABLET SL PRN (14:04)
[2024-10-27 14:12] VITALS: BP 129/66
[2024-10-27 14:36] LABS: CK-MB VALUE MASS < 1.0 NG/ML (<3.6)
[2024-10-27 14:43] LABS: CPK CREATINE PHOSPHOKINASE 75 U/L (34-145); MB/CK RELATIVE INDEX 1.33 (< OR =4)
[2024-10-27 15:20] VITALS: BP 124/64; TEMP 97; O2SAT 97
== END 2024-10-27 15:40 | disposition home or self-care (01) ==
LOC: M ED 12:03
DX: R07.9 Chest pain, unspecified (principal); R16.0 Hepatomegaly, not elsewhere classified; E11.9 Type 2 diabetes mellitus without complications; K76.0 Fatty (change of) liver, not elsewhere classified; K50.90 Crohn's disease, unspecified, without complications; F17.200 Nicotine dependence, unspecified, uncomplicated; I47.19 Other supraventricular tachycardia
CPT/HCPCS: 36415; 71045; 71275; 80048; 80076; 82550; 82553; 83690; 84439; 84443; 84484; 85025; 93005; 93041; 94760; 99285; Q9967

== ENCOUNTER → 2024-11-21 | Outpatient (REF) | payer BC ==
[2024-11-21 13:31] LABS: FREE T4 0.84 NG/DL (0.89-1.76); THYROID STIMULATING HORMONE 1.019 uIU/ML (0.55-4.78)
== END ==
LOC: M SFHCCLAY 07:33
PROVIDERS: ATTEND Nurse Practitioner Family
DX: E03.9 Hypothyroidism, unspecified (principal)

== ENCOUNTER → 2024-12-05 | Outpatient (CLI) | payer BC | LOC: M RAD 07:40 | PROVIDERS: ATTEND Nurse Practitioner Family | DX: R16.0 Hepatomegaly, not elsewhere classified (principal) ==

== ENCOUNTER → 2024-12-08 | Outpatient (CLI) | payer BC ==
[2024-12-08 13:09] LABS: HEMATOCRIT 36.1 % (36.0-47.0); MEAN CORPUSCULAR HEMOGLOBIN 30.4 pg (27.0-33.0); MEAN CORPUSCULAR HGB CONC 33.2 g/dl (32.0-36.5); MEAN CORPUSCULAR VOLUME 91.4 fl (80.0-96.0); PLATELET COUNT, AUTOMATED 365 10^3/uL (150-450); RED BLOOD COUNT 3.95 10^6/uL (4.00-5.40); WHITE BLOOD COUNT 12.1 10^3/uL (4.0-10.0)
[2024-12-08 13:34] LABS: ERYTHROCYTE SEDIMENTATION RATE 30 mm/hr (0-20)
== END ==
LOC: M LAB 12:32
PROVIDERS: ATTEND Internal Medicine Gastroenterology
DX: K50.90 Crohn's disease, unspecified, without complications (principal); R11.0 Nausea; R10.9 Unspecified abdominal pain

== ENCOUNTER → 2024-12-11 | Outpatient (REF) | payer BC | LOC: M LAB REF 09:13 | PROVIDERS: ATTEND Internal Medicine Gastroenterology | DX: K50.90 Crohn's disease, unspecified, without complications (principal); R11.0 Nausea; R10.9 Unspecified abdominal pain ==

== ENCOUNTER 2025-01-16 15:12 | Outpatient (RCR) | payer BC | END 2025-01-17 | LOC: M PT 15:12 | PROVIDERS: ATTEND Nurse Practitioner Family | DX: M54.2 Cervicalgia (principal) ==

== ENCOUNTER → 2025-03-28 | Outpatient (CLI) | payer BC | LOC: M PLAIMG 09:51 | PROVIDERS: ATTEND Nurse Practitioner Adult Health | DX: M54.50 Low back pain, unspecified (principal) ==

== ENCOUNTER → 2025-04-18 | Outpatient (CLI) | payer BC ==
[2025-04-18 11:48] LABS: ALT/SGPT 75 U/L (7.0-40); AST/SGOT 56 U/L (<34); CALCIUM LEVEL 9.1 MG/DL (8.5-10.1); CARBON DIOXIDE LEVEL 25 MMOL/L (20-31); CHLORIDE LEVEL 100 MMOL/L (98-107); CHOLESTEROL LEVEL 149 MG/DL (<200); CHOLESTEROL RISK RATIO 3.69 (<5); CREATININE FOR GFR 0.66 MG/DL (0.55-1.30); GLOMERULAR FILTRATION RATE > 90.0 (>58); LDL CHOLESTEROL 56.9 MG/DL (<100); NON-HDL-C 108.7 MG/DL; POTASSIUM SERUM 5.1 MMOL/L (3.5-5.1); SODIUM LEVEL 137 MMOL/L (136-145); TRIGLYCERIDES LEVEL 259 MG/DL (<150)
== END ==
LOC: M LAB 09:12
DX: E11.65 Type 2 diabetes mellitus with hyperglycemia (principal); Z79.4 Long term (current) use of insulin

== ENCOUNTER → 2025-05-15 | Outpatient (REF) | payer BC | LOC: M SFHCCLAY 13:46 | PROVIDERS: ATTEND Nurse Practitioner Family | DX: Z53.9 Procedure and treatment not carried out, unspecified reason (principal) ==

== ENCOUNTER → 2025-08-01 | Outpatient (CLI) | payer BC ==
[2025-08-01 15:14] LABS: PLATELET COUNT, AUTOMATED 393 10^3/uL (150-450)
[2025-08-01 15:50] LABS: C REACTIVE PROTEIN QUANTITATIV 0.71 MG/DL (<1.0)
[2025-08-01 15:51] LABS: ALT/SGPT 61 U/L (7.0-40); AST/SGOT 41 U/L (<34); CALCIUM LEVEL 8.8 MG/DL (8.5-10.1); CARBON DIOXIDE LEVEL 27 MMOL/L (20-31); CHLORIDE LEVEL 99 MMOL/L (98-107); CREATININE FOR GFR 0.65 MG/DL (0.55-1.30); GLOMERULAR FILTRATION RATE > 90.0 (>58); POTASSIUM SERUM 4.3 MMOL/L (3.5-5.1); SODIUM LEVEL 136 MMOL/L (136-145)
== END ==
LOC: M LAB 14:27
PROVIDERS: ATTEND Internal Medicine Gastroenterology
DX: R10.32 Left lower quadrant pain (principal); K50.90 Crohn's disease, unspecified, without complications; R11.0 Nausea

== ENCOUNTER → 2025-08-02 | Outpatient (REF) | payer BC | LOC: M LAB REF 07:42 | PROVIDERS: ATTEND Internal Medicine Gastroenterology | DX: R10.32 Left lower quadrant pain (principal); K50.90 Crohn's disease, unspecified, without complications; R11.0 Nausea ==

== ENCOUNTER → 2025-09-07 | Outpatient (CLI) | payer BC | LOC: M WHC 13:33 | PROVIDERS: ATTEND Student in an Organized Health Care Education/Training Program | DX: N83.201 Unspecified ovarian cyst, right side (principal) ==